=== PATIENT | male | born 1965 | race Caucasian/White ===

== ENCOUNTER 2023-06-07 09:59 | Day surgery (SDC) | payer MEDICARE, OTHER, SELFPAY ==
[2023-06-02 11:23] VITALS: BMI 23.0
--- NOTE | 2023-06-02 12:17 | PTCARENOTE ---
Ashlyn at 's office was notified of K+ 5.5 collected today.
--- NOTE | 2023-06-05 15:30 | PTCARENOTE ---
Dr Peterson made aware of K 5.5. Repeat potassium at bedside ordered.
[2023-06-07] VITALS (9 sets, daily range): BP systolic 118–134; BP diastolic 74–93
[2023-06-07 11:55] LABS: Potassium 4.6 mmol/L (3.5-5.1)
--- NOTE | 2023-06-07 13:01 | W.SUR.POST ---
Surgical Immediate Post Op
Note
Pre Op Diagnosis: ESRD
Post Op Diagnosis: ESRD
Procedure Performed: RUE fistulagram, balloon angioplasty outflow vein
Primary Surgeon: Jack
Anesthesia: local and sedation
Estimated Blood Loss: <2cc
Fluids: See anesthesia flow sheet
Drains/Shunts: none
Specimens/Cultures: none
Doppler/Duplex/Angio (Y/N): Y
Complications: none
Operative Findings: Outflow vein stenosis/webs
--- NOTE | 2023-06-07 17:06 | OR.RPT ---
Operative Report
Operative Report
PROCEDURE DATE: 06/07/2023
Preoperative diagnosis:
1. Chronic kidney disease, status post kidney transplant.
2. Status post right upper extremity AV fistula creation with enlarging aneurysmal fistula with aching discomfort.
Postoperative diagnosis: Same
Procedure:
1. Right upper extremity fistulogram and central venogram.
2. Balloon angioplasty of possible central venous stenosis with 10 mm angioplasty balloon.
3. Balloon angioplasty of immediate outflow vein web/stenosis with 8 mm angioplasty balloon.
Surgeon: Jack
Keymodule Assembly Supervisor: None
Complications: None
Anesthesia: Local, sedation
Fluoroscopy:
2.3 min
20 mGy
5.96 Gy.cm2
Indications for procedure:
Patient with right upper extremity arteriovenous fistula that had been created when he was having worsening kidney function. Subsequently he underwent successful renal transplantation. He had aching/aneurysmal degeneration of the fistula. He is
very active individual and it was unclear whether this was due to [id number] or this could have been a central venous stenosis. He did have some dilated upper extremity veins as well suggesting possible central venous stenosis.
Risk/benefits/alternatives of fistulogram were also discussed. We discussed performing with minimizing of contrast. Patient understood all and wished to proceed.
Description of procedure:
Patient was identified, brought to the operating room. Placed on the table in the supine position. After the adequate administration of anesthesia, the patient was prepped and draped in the standard surgical fashion. A standard preoperative
timeout was undertaken and everybody was in agreement with the plan.
The outflow vein of the fistula was punctured at the antecubital fossa using a micropuncture kit under direct duplex ultrasound guidance. A 6 Polish sheath was then advanced over a 0.035 inch wire. Fistulogram was obtained that demonstrated very
tortuous immediate outflow beyond the aneurysmal puncture site with what appeared to be a web like stenosis. Slightly more proximal to here there was another area that suggested a web possibly. Beyond here the fistula appeared patent. Central
venogram demonstrated patent central veins with some collateralization though. I could not identify definitive stenosis initially. I used a glide catheter over a wire and then injected through the glide catheter into the central veins and then
noted that at the cephalic arch there was a moderate stenosis, not severe, and at the subclavian vein juncture with the internal jugular vein also there was a moderate stenosis. I therefore then gained central venous access into the SVC with a
wire. I then balloon angioplastied the immediate outflow stenosis with an 8 mm balloon and then the central stenosis with a 10 mm balloon. Completion angiogram demonstrated good flow through. No definitive residual stenosis, though I am not clear
that the webbing completely resolved. I felt placing stents was not ideal at this point. At this point therefore I was satisfied. My wires and catheters were withdrawn. A 4-0 Monocryl pursestring stitch was placed around the sheath entry site
and tied down as the sheath was withdrawn. Manual pressure was also applied and hemostasis was achieved.
The patient tolerated procedure well.
== END 2023-06-07 14:45 | disposition home or self-care (01) ==
LOC: CATH 09:59
PROVIDERS: Anesthesiology; ATTENDING PHYSICIAN Surgery Vascular Surgery; FAMILY PHYSICIAN Family Medicine
DX: T82.858A Stenosis of other vascular prosthetic devices, implants and grafts, initial encounter (principal); Y83.2 Surgical operation with anastomosis, bypass or graft as the cause of abnormal reaction of the patient, or of later complication, without mention of misadventure at the time of the procedure; I12.0 Hypertensive chronic kidney disease with stage 5 chronic kidney disease or end stage renal disease; N18.6 End stage renal disease; Z99.2 Dependence on renal dialysis; Z94.0 Kidney transplant status; Z87.891 Personal history of nicotine dependence; Z79.52 Long term (current) use of systemic steroids
CPT/HCPCS: 36902; 36907; C1725; 76937; 84132; C1769; C1894; Q9967

== ENCOUNTER → 2023-09-13 06:34 | Outpatient (REF) | payer MEDICARE, OTHER, SELFPAY | LOC: MRI 3T 06:34 | PROVIDERS: ATTENDING PHYSICIAN Pain Medicine Interventional Pain Medicine; FAMILY PHYSICIAN Family Medicine | DX: M54.16 Radiculopathy, lumbar region (principal) | CPT/HCPCS: 72148 ==

== ENCOUNTER → 2024-02-09 12:15 | Outpatient (REF) | payer MEDICARE, OTHER, SELFPAY | LOC: RAD 12:15 | PROVIDERS: ATTENDING PHYSICIAN Student in an Organized Health Care Education/Training Program | DX: R05.9 Cough, unspecified (principal) | CPT/HCPCS: 71046 ==

== ENCOUNTER 2024-04-27 13:43 | Inpatient (IN) | payer MEDICARE, OTHER, SELFPAY ==
[2024-04-27] VITALS (9 sets, daily range): BP systolic 108–131; BP diastolic 64–83; BMI 17.4; BMI 22.3
--- NOTE | 2024-04-27 10:08 | ED.GENMED ---
History of Present Illness
<Sparkle Juarez PA-C - Last Filed: 04/27/24 14:27>
General
Chief Complaint: Cough
Source: patient
Exam Limitations: none
Time Seen by Provider: 04/27/24 09:48
Nursing documentation reviewed up to this point in time: agreed with
History of Present Illness
History of Present Illness:
59-year-old male with a history of failed kidney transplant first in 2015, second [address] [facility], chronic kidney disease with a baseline creatinine of around 4, followed by nephrology Dr. Hamilton here at [facility]
Presents for 1 week of URI symptoms including fevers, chills, body aches, cough that is productive with some yellowish mucus, diarrhea, dehydration, global fatigue. Patient says his symptoms started about 9 days ago but on he tested positive
for COVID-19. He called his family physician who called him and paxlovid. Patient took 5 days of the paxlovid but never felt any improvement. He did develop diarrhea while on the paxlovid which seemed to get a little bit better yesterday but then
came back again. It is variable in terms of episodes. But he feels like he is not getting enough fluids and and feels very weak. He has not had any vomiting and is able to tolerate liquids. Patient last had a temperature of 102 this morning at 7
AM and took Tylenol. He feels mildly short of breath which is worse with exertion.
Patient is immunocompromised on immune suppressants for his kidney transplant. He still has an AV fistula in his right upper extremity but is not being dialyzed.
He otherwise has no other chronic medical problems, he does take blood pressure medication
pt wa sent in by his PCP this am after he spoke with him on the phone
Past History
<Sparkle Juarez PA-C - Last Filed: 04/27/24 14:27>
Past History
ED Past Medical History: HTN and Renal failure
ED Past Surgical History: Other (Renal transplant [facility] 2014)
Social History
Tobacco: Non-smoker
Alcohol: None
Drug: None
Personal:
Living: with family
Employment: Employed
Family History
Family History: Other (Noncontributory)
Review of Systems
<Sparkle Juarez PA-C - Last Filed: 04/27/24 14:27>
Review of Systems
Allergies reviewed?: Yes
All Other Systems: Not applicable
Phy Exam
<Sparkle Juarez PA-C - Last Filed: 04/27/24 14:27>
Physical Exam
Physical Exam:
GENERAL: Alert , in no apparent distress generally ill, nontoxic but wiped out
EYE: pupils equal and reactive
NECK: Supple
ENT: b/l TM s clear, pharynx mild erythematous but no tonsillar hypertrophy or exudates
CARDIAC: Regular rate and rhythm, no edema, right upper extremity AV fistula with a palpable thrill
LUNGS: Occasional cough, some crackles in his right lung, mild rhonchi bases bilaterally, no wheezes, no respiratory distress
ABDOMEN: Soft, without focal tenderness, no r/g, no cvat, normal bowel sounds
NEUROLOGICAL: Alert and oriented, no focal neuro deficits
SKIN: Warm and dry, skin intact.
MUSCULOSKELETAL: No edema, well perfused.
PSYCH: Normal and appropriate interaction.
Course
<Sparkle Juarez PA-C - Last Filed: 04/27/24 14:27>
Orders/Labs/Results
Orders:
Orders
04/27/24 09:32
Chest [CR Chest - 2 Views ] Urgent
Comment:
Reason For Exam: cough
04/27/24 09:48
Electrocardiogram (*1) Urgent
Reason for Study: Shortness of Breath
Cardiac Monitoring- Treatment ONCE
04/27/24 09:49
EKG- Treatment ONCE
04/27/24 Lunch
Regular
At Your Request: Full Participation
04/27/24 10:08
0.9% Sodium Chloride 1000 ml [Nss] 1,000 ml IV BOLUS
04/27/24 10:52
Complete Blood Count/With Diff Urgent
Comprehensive Metabolic Panel Urgent
Lactic Acid Urgent
Magnesium Urgent
Procalcitonin Urgent
PCT Algorithmm Indication: Respiratory
Blood Culture Q30M
FILI Source: Blood/Venous
Specimen Description:
04/27/24 10:53
COVID-19 Antigen Urgent
Source: Nasal Swab
Blood Culture Q30M
FILI Source: Blood/Venous
Specimen Description:
Influenza A+B Rapid Molecular Urgent
FILI Source: Nasal Swab
Specimen Description:
04/27/24 12:05
Azithromycin 500 mg/250 ml [Zithromax Infusion] 500 mg in 250 ml IV NOW
CefTRIAXone [Rocephin] 2,000 mg IV NOW STA
04/27/24 12:29
Sterile Water [Sterile Water For Injection] 10 ml .ROUTE .STK-MED ONE
04/27/24 12:43
Sps Sodium Polystyrene Sulfon [Kayexalate Suspension] 15 grams PO NOW STA
04/27/24 12:48
INFECTIOUS DISEASE CONSULT Routine
Consulting Provider: Roma Diaz
Was physician already notified: Yes
Reason for consult: B/L PNA
04/27/24 13:02
Admit/Transfer Patient As Directed
Co-Sign Provider:
Level of Care: Inpatient admission
Assign to:: Medical/Surgical
Physician / Group: Hospitalist
Diagnosis: Bilateral Pneumonia
Reason for Hospitalization: as above
Expected length of stay greater than two midnights?: Yes
ELOS- Estimated Length of Stay in days: 3
I certify the patient meets the requirements for IP care: Yes
04/27/24 13:03
PRN Pain Medication Management As Directed
May give lesser potent ordered pain med per pt: Yes
preference::
Protocol:: Medication orders for pain may be administered in a
manner that supports deferring to patient preference
when the pt is:
- Requesting an ordered lesser potent pain medication.
Least to most potent pain medications are defined
as: acetaminophen < NSAID < tramadol < opioids
(morphine, oxycodone, hydromorphone).
- Requesting a lesser dose of the same medication IF
ORDERED.
- Requesting a less intrusive route of administration
if both routes are prescribed by the provider (PO <
IV).
04/27/24 13:04
Code Status As Directed
Resuscitation Status: Full Code
04/27/24 13:26
Guaifenesin/Codeine Solution [Robitussin AC] 10 ml PO NOW STA
Abnormal Lab Results
04/27/24 04/27/24
10:52 10:53
WBC 2.1 L* 10^3/uL
(4.8-10.8)
MPV 10.5 H fL
(7.4-10.4)
Absolute Lymphs (auto) 0.1 L 10^3/uL
(1.2-3.4)
Immature Gran % 1.0 H %
(0-0.5)
Neutrophils % 83.8 H %
(42.2-75.2)
Lymphocytes % 3.8 L %
(20.5-51.1)
Monocytes % 11.4 H %
(1.7-9.3)
Sodium 130 L mmol/L
(135-145)
Potassium 5.2 H mmol/L
(3.5-5.1)
BUN 27 H mg/dl
(9-20)
Creatinine 1.7 H mg/dL
(0.7-1.3)
Glucose 104 H mg/dl
(70-99)
Total Protein 5.9 L g/dl
(6.3-8.2)
Albumin 3.3 L g/dl
(3.5-5.0)
SARS-CoV-2 Antigen Positive A
(Negative)
04/27/24 10:52
04/27/24 10:52
Vital Signs
Initial and Last Documented VS:
Initial Vital Signs
Temp Pulse Resp BP Pulse Ox
37.2 C 78 20 108/67 96
04/27/24 09:16 04/27/24 09:16 04/27/24 09:16 04/27/24 09:16 04/27/24 09:16
Last Documented Vital Signs
Temp Pulse Resp BP Pulse Ox
37.7 C 76 20 125/79 96
04/27/24 12:30 04/27/24 13:30 04/27/24 13:30 04/27/24 13:00 04/27/24 13:30
<Pernell Moody MD - Last Filed: 04/27/24 12:23>
Orders/Labs/Results
Orders:
Orders
04/27/24 09:32
Chest [CR Chest - 2 Views ] Urgent
Comment:
Reason For Exam: cough
04/27/24 09:48
Electrocardiogram (*1) Urgent
Reason for Study: Shortness of Breath
Cardiac Monitoring- Treatment ONCE
04/27/24 09:49
EKG- Treatment ONCE
04/27/24 Lunch
Regular
At Your Request: Full Participation
04/27/24 10:08
0.9% Sodium Chloride 1000 ml [Nss] 1,000 ml IV BOLUS
04/27/24 10:52
Complete Blood Count/With Diff Urgent
Comprehensive Metabolic Panel Urgent
Lactic Acid Urgent
Magnesium Urgent
Procalcitonin Urgent
PCT Algorithmm Indication: Respiratory
Blood Culture Q30M
FILI Source: Blood/Venous
Specimen Description:
04/27/24 10:53
COVID-19 Antigen Urgent
Source: Nasal Swab
Blood Culture Q30M
FILI Source: Blood/Venous
Specimen Description:
Influenza A+B Rapid Molecular Urgent
FILI Source: Nasal Swab
Specimen Description:
04/27/24 12:05
Azithromycin 500 mg/250 ml [Zithromax Infusion] 500 mg in 250 ml IV NOW
CefTRIAXone [Rocephin] 2,000 mg IV NOW STA
04/27/24 12:29
Sterile Water [Sterile Water For Injection] 10 ml .ROUTE .STK-MED ONE
04/27/24 12:43
Sps Sodium Polystyrene Sulfon [Kayexalate Suspension] 15 grams PO NOW STA
04/27/24 12:48
INFECTIOUS DISEASE CONSULT Routine
Consulting Provider: Roma Diaz
Was physician already notified: Yes
Reason for consult: B/L PNA
04/27/24 13:02
Admit/Transfer Patient As Directed
Co-Sign Provider:
Level of Care: Inpatient admission
Assign to:: Medical/Surgical
Physician / Group: Hospitalist
Diagnosis: Bilateral Pneumonia
Reason for Hospitalization: as above
Expected length of stay greater than two midnights?: Yes
ELOS- Estimated Length of Stay in days: 3
I certify the patient meets the requirements for IP care: Yes
04/27/24 13:03
PRN Pain Medication Management As Directed
May give lesser potent ordered pain med per pt: Yes
preference::
Protocol:: Medication orders for pain may be administered in a
manner that supports deferring to patient preference
when the pt is:
- Requesting an ordered lesser potent pain medication.
Least to most potent pain medications are defined
as: acetaminophen < NSAID < tramadol < opioids
(morphine, oxycodone, hydromorphone).
- Requesting a lesser dose of the same medication IF
ORDERED.
- Requesting a less intrusive route of administration
if both routes are prescribed by the provider (PO <
IV).
04/27/24 13:04
Code Status As Directed
Resuscitation Status: Full Code
04/27/24 13:26
Guaifenesin/Codeine Solution [Robitussin AC] 10 ml PO NOW STA
Abnormal Lab Results
04/27/24 04/27/24
10:52 10:53
WBC 2.1 L* 10^3/uL
(4.8-10.8)
MPV 10.5 H fL
(7.4-10.4)
Absolute Lymphs (auto) 0.1 L 10^3/uL
(1.2-3.4)
Immature Gran % 1.0 H %
(0-0.5)
Neutrophils % 83.8 H %
(42.2-75.2)
Lymphocytes % 3.8 L %
(20.5-51.1)
Monocytes % 11.4 H %
(1.7-9.3)
Sodium 130 L mmol/L
(135-145)
Potassium 5.2 H mmol/L
(3.5-5.1)
BUN 27 H mg/dl
(9-20)
Creatinine 1.7 H mg/dL
(0.7-1.3)
Glucose 104 H mg/dl
(70-99)
Total Protein 5.9 L g/dl
(6.3-8.2)
Albumin 3.3 L g/dl
(3.5-5.0)
SARS-CoV-2 Antigen Positive A
(Negative)
04/27/24 10:52
04/27/24 10:52
Vital Signs
Initial and Last Documented VS:
Initial Vital Signs
Temp Pulse Resp BP Pulse Ox
37.2 C 78 20 108/67 96
04/27/24 09:16 04/27/24 09:16 04/27/24 09:16 04/27/24 09:16 04/27/24 09:16
Last Documented Vital Signs
Temp Pulse Resp BP Pulse Ox
37.7 C 76 20 125/79 96
04/27/24 12:30 04/27/24 13:30 04/27/24 13:30 04/27/24 13:00 04/27/24 13:30
<Sparkle Juarez PA-C - Last Filed: 04/27/24 14:27>
MDM/Problems Addressed
Differential Diagnosis Includes:
Pneumonia, bacteremia, dehydration, DANIEL
MDM/Problems Addressed:
room 59 cristian palomino 59 y/o M htn, kid txp x 2 (2021 [facility]) followed by abel
covid + on 04/20, completed paxlovid; weak, fever, rigors, cough, winded, diarrhea
soft bp, temp 100
cbc pending for some reason
lactate normal
cr stable
cxr b/l pna
procal neg but could be in renal patient
s
given risk factors, will cover with community acquired abx
blood cx sent
abx
<Sparkle Juarez PA-C - Last Filed: 04/27/24 14:27>
*Critical Care Note
Total Time (30-74mins, 75-104mins- exclusive of procedures): Not Applicable
ED Attending Note
<Sparkle Juarez PA-C - Last Filed: 04/27/24 14:27>
-
Portions of this chart may have been created with voice recognition software.� Occasional wrong word or��sound alike� substitutions may have occurred due to the inherent limitations of voice recognition software.
<Pernell Moody MD - Last Filed: 04/27/24 12:23>
ED Attending Note
Patient seen and examined by attending physician: Yes
ED Attending Note:
I have seen and evaluated the patient with a [id number] encounter. I have spoken to the advance practicer provider and involved in the medical history, the physical exam, medical decision making.
Evaluation and management service: agree unless noted differently below.
Results interpretation: agree unless noted differently below.
Focused HPI: 59-year-old male with history as documented notable for ESRD status post renal transplant who presents to the ER for worsening cough in the setting of COVID. He reports he started feeling unwell about a week ago and tested positive for
COVID as an outpatient. He did take Paxlovid but symptoms did not improve. He reports that he has had shortness of breath, cough, myalgias, fever and chills for a week and is not getting any better which prompted ER visit. Denies any chest pain.
Denies any vomiting. He has had some loose stools. Denies other complaints
Physical exam: Awake alert, appears fatigued but not in acute distress. Vital signs are normal here. He has rales at the lung bases bilaterally and frequent hacking cough.
Medical Decision Makin-year-old male with notable history of renal transplant presents with worsening symptoms in the setting of known COVID infection. Labs show essentially stable creatinine, marginal hyperkalemia. COVID swab confirmed
positive. Chest x-ray shows bilateral pneumonia. Sent off blood cultures. Will cover with antibiotics given compromised immune system. Admit for continued treatment.
Discharge Plan
Departure
Patient Disposition: Admit
Date of Disposition: 04/27/24
Time of Disposition: 12:18
Admit to: Med/Surg
Presentation/result/management discussed w/ accepting MD/DO: Hospitalist
Condition: Fair
Covid-19: Confirmed COVID-19
Discharge Problem:
COVID-19, Pneumonia, Immunosuppression
Interventions
Interventions:
*Risk Screen - Suicide Last Done: 04/27/24 09:20
*General Assessment Last Done: 04/27/24 09:20
*Neglect/Abuse Screening Last Done: 04/27/24 09:20
ED- Fall Risk Assessment Last Done: 04/27/24 09:21
*ED COVID-19 Vaccine History Last Done: 04/27/24 09:19
ED- Pulmonary Assessment Last Done: 04/27/24 10:49
[2024-04-27] MEDS: NSS 1000 IV ×2 (10:48→19:13)
[2024-04-27 11:19] LABS: COVID-19 Antigen Positive (Negative)
[2024-04-27 11:22] LABS: ALT (SGPT) 33 U/L (0-50); AST (SGOT) 43 U/L (17-59); Albumin 3.3 g/dl (3.5-5.0); Alkaline Phosphatase 103 U/L (38-126); Blood Urea Nitrogen 27 mg/dl (9-20); Calcium 8.7 mg/dl (8.4-10.2); Carbon Dioxide 24 mmol/L (22-30); Chloride 100 mmol/L (98-107); Estimated Creatinine Clearance 41 ml/min; Glucose 104 mg/dl (70-99); Lactic Acid 0.8 mmol/L (0.7-2.0); Magnesium 1.6 mg/dl (1.6-2.3); Potassium 5.2 mmol/L (3.5-5.1); Sodium 130 mmol/L (135-145); Total Bilirubin 0.6 mg/dl (0.2-1.3); Total Protein 5.9 g/dl (6.3-8.2); eGFR 45.58
[2024-04-27 11:40] LABS: Procalcitonin 0.06 ng/ml (0.0-0.25)
[2024-04-27] MEDS: ROCEPHIN 2000 MG IV (12:34)
--- NOTE | 2024-04-27 12:34 | W.PN.UPDATE ---
Update Note
Progress Note Update
I personally performed a history and physical exam of the patient and discussed management with the resident. I reviewed the resident's note and agree with the documented findings and plan of care HPI/CC.
5-year-old male presents with 1 week of upper respiratory symptoms. He was diagnosed with COVID and treated with 5 days of Paxil bid. He has not improved.
Gen: NAD, AAOx3.
Eyes: EOMI, PERRLA, no scleral icterus.
Neck: supple.
CV: RRR, +S1/S2, no m/r/g.
Resp: CTAB anteriorly, no rales, wheezes, or rhonchi (not exam obscured by excessive coughing).
Skin: No rashes.
Neuro: CN 2-12 intact, non-focal.
Psych: Normal mood and affect.
Lab Results
04/27/24 04/27/24 04/27/24
09:48 10:52 10:53
WBC 2.1 L*
RBC 4.87
Hgb 13.5
Hct 40.5
MCV 83.2
MCH 27.7
MCHC 33.3
RDW 13.4
Plt Count 156
MPV 10.5 H
Abs Immat Gran (auto) 0.0
Absolute Neuts (auto) 1.8
Absolute Lymphs (auto) 0.1 L
Absolute Monos (auto) 0.2
Absolute Eos (auto) 0.0
Absolute Basos (auto) 0.0
Immature Gran % 1.0 H
Neutrophils % 83.8 H
Lymphocytes % 3.8 L
Monocytes % 11.4 H
Eosinophils % 0.0
Basophils % 0.0
Nucleated RBC % 0
Sodium 130 L
Potassium 5.2 H
Chloride 100
Carbon Dioxide 24
BUN 27 H
Creatinine 1.7 H
Estimated Creat Clear 41
eGFR 45.58
Glucose 104 H
Lactic Acid 0.8
Calcium 8.7
Magnesium 1.6
Total Bilirubin 0.6
AST 43
ALT 33
Alkaline Phosphatase 103
Troponin I Cancelled
Total Protein 5.9 L
Albumin 3.3 L
Procalcitonin 0.06
SARS-CoV-2 Antigen Positive A
04/27/24 10:53 Nasal Swab Influenza Types A & B (DONALD) - Final
Negative for Influenza A & B, NAAT
Negative results must be combined with clinical observations
and patient history.
Nucleic Acid Amplification test (NAAT)performed on the
[employer] NOW platform.
CXR: Patchy bilateral parenchymal opacities as described, highly suggestive of bilateral pneumonia.
Sepsis due to acute B/L PNA:
-a/e/b tachypnea, leukopenia, source PNA
-currently saturating well on RA
-Flu NEG, COVID POS (was COVID POS 04/20/24, completed 5 days Paxlovid). As per Dr. Diaz, no Molnupiravir at this time.
-Immunocompromised patient, history of renal Tx x 2, CKD3a
-cont Cellcept/prednisone/Prograf
-Azithro/Rocephin (reports not hospitalized over the last few months, MDR less likely)
-c/s ID as pt immunocompromised
-follow BCxs
-IVFs
-Robitussin with codeine for persistent cough
Essential HTN:
-cont Labetalol/Cardura with holding parameters
Hyperkalemia:
-15g Kayexalate x 1
Hyponatremia:
-trend with IVFs
[2024-04-27] MEDS: ZITHROMAX INFUSION 250 IV (12:37)
[2024-04-27 12:40] LABS: % Lymphocytes 3.8 % (20.5-51.1); % Monocytes 11.4 % (1.7-9.3); % Neutrophils 83.8 % (42.2-75.2); Absolute Lymphocytes 0.1 10^3/uL (1.2-3.4); Absolute Monocytes 0.2 10^3/uL (0.1-0.6); Absolute Neutrophils 1.8 10^3/uL (1.4-6.5); Hematocrit 40.5 % (39.0-52.0); Hemoglobin 13.5 g/dL (13.0-18.0); Mean Corp Hgb Conc. 33.3 g/dL (33.0-37.0); Mean Corpuscular Hgb 27.7 pg (27.0-31.0); Mean Corpuscular Volume 83.2 fL (80.0-94.0); Mean Platelet Volume 10.5 fL (7.4-10.4); Nucleated Red Blood Cells % 0 % (-); Platelet Count 156 10^3/uL (130-400); Red Blood Cell Count 4.87 10^6/uL (4.70-6.10); Red Cell Dist. Width 13.4 % (11.5-14.5); White Blood Cell Count 2.1 10^3/uL (4.8-10.8)
--- NOTE | 2024-04-27 13:02 | HPS.HSE ---
Family Physician
-
Family Physician: Sanjay Lindsay
Chief Complaint
-
Cough
History of Present Illness
This is a 59-year-old male with past medical history of ESRD s/p renal transplant in 2015, and in May 2019 at [facility] on tacrolimus, prednisone, Hx of hypertension, who presented to the ER complaining of ongoing URI symptoms. Patient reports
he tested positive for COVID-19 on 04/20, was prescribed Paxlovid and took medication for total 5 days, but symptoms did not resolve. Patient reports experiencing generalized weakness, fatigue and unable to tolerate diet. He reports his cough
worsened, now productive with yellow sputum, as well as dehydration and diarrhea prompting him to come to the emergency department for evaluation.
On presentation to ER blood pressure 108/67, pulse 78, respiratory 20, O2 sats 96% on room air. CBC shows WBC 2.1, Hgb 13.5. Electrolytes with sodium 130, potassium 5.2, BUN 27, creatinine 1.7. Evaluation with a chest x-ray showed Patchy
bilateral parenchymal opacities as described, highly suggestive of bilateral pneumonia.
Medical History
Past Medical History
Past Medical History: Reports Other (ESRD, hemodialysis, renal transplant 2015, renal transplant 2021, hypertension, hyperlipidemia, right inguinal hernia repair, restless leg syndrome)
Past Surgical History: Reports Other (Hemorrhoidectomy, renal transplant ())
Social History
Tobacco: Non-smoker
Alcohol: None
Drug: None
Family History
Family History: Not pertinent
Allergies / Home Medications
Allergies reflects when Allergies were last updated in [facility].
Home Medications with original date entered in [facility]
Allergy/Medication List:
Allergies
Allergy/AdvReac Type Severity Reaction Status Date / Time
No Known Allergies Allergy Verified 04/27/24 09:20
Home Medications
labetalol 200 mg tablet 100 mg PO BID Blood pressure 03/14/19
doxazosin 2 mg tablet (Cardura) 2 mg PO DAILY 10/04/22
prednisone 5 mg tablet 5 mg PO DAILY 12/21/21
mycophenolate sodium 180 mg tablet,delayed release 540 mg PO BID 05/31/23
tacrolimus 1 mg capsule, immediate-release 1 mg PO Q12H 06/07/23
acetaminophen 325 mg tablet (Tylenol) 650 mg PO Q6HPRN PRN FEVER/CHILLS/MILD PAIN 04/27/24
tacrolimus 0.5 mg capsule, immediate-release (Prograf) 0.5 mg PO DAILY 04/27/24
Review of Systems
-
A 12 point ROS was completed and negative except as noted: Yes
Constitutional: Reports See HPI
Respiratory: Reports See HPI
Cardiac: Reports See HPI
Abdomen/GI: Reports See HPI
Physical Exam
Vital Signs
Vital Signs
Temp Pulse Resp BP Pulse Ox
99 F 79 18 109/67 96
04/27/24 09:16 04/27/24 10:45 04/27/24 10:45 04/27/24 10:34 04/27/24 10:49
Physical Exam
General: No Apparent Distress
HEENT: NormoCephalic and Anicteric
Respiratory: Wheezes and Rhonchi
Cardiac: S1/S2 and Regular Rhythm; No Murmur
GI: Soft, Non Tender, Non Distended and Normal Bowel Sounds
Musculoskeletal: No Edema
Neuro: Awake, Alert, Oriented and AO x 3
Psych: Calm
Laboratory Results
-
04/27/24 10:52
04/27/24 10:52
Laboratory Results
Lactic Acid 0.8 mmol/L (0.7-2.0) 04/27/24 10:52
Total Bilirubin 0.6 mg/dl (0.2-1.3) 04/27/24 10:52
AST 43 U/L (17-59) 04/27/24 10:52
ALT 33 U/L (0-50) 04/27/24 10:52
Alkaline Phosphatase 103 U/L (38-126) 04/27/24 10:52
Troponin I Cancelled 04/27/24 09:48
Impression/Plan
-
Assessment/plan
#Sepsis POA secondary to bilateral pneumonia and COVID-19
-CXR Patchy bilateral parenchymal opacities as described, highly suggestive of bilateral pneumonia.
-Initiated on azithromycin and Rocephin
-patient immunocompromised, infectious disease consulted
-Blood cultures x 2 ordered, pending
-Flu negative
-COVID positive (although was positive 04/20/2024, and completed a 5-day course of Paxlovid)
-Robitussin AC for ongoing cough
#ESRD s/p renal transplant 2015 and 2021
-Creatinine 1.7
-Has not required dialysis
-Continue home immunosuppressants, tacrolimus/Prednisone/mycophenolate sodium
#Leukopenia
-Likely related to immunosuppressants
-Monitor CBC
#Hypovolemic hyponatremia
-IV fluids
-Monitor BMP
#Hyperkalemia
-No EKG changes
-Kayexalate
#Essential hypertension
-Continue labetalol/doxazosin
CODE STATUS full code
DVT prophylaxis heparin SQ
[2024-04-27] MEDS: ROBITUSSIN AC 10 ML PO (13:38)
[2024-04-27] MEDS: KAYEXALATE SUSPENSION 15 GRAMS PO (13:38)
--- NOTE | 2024-04-27 14:26 | CON.ID ---
Consultation
-
Date/Time Consultation Requested: March 27, 2024 1248
Date/Time Consultation Performed: March 27, 2024 1430
Requesting Provider: Dr. Reginald Valverde
Performing Provider: Dr. Roma Diaz
Reason for Consultation: PNA, immunocompromised
Chief Complaint / Past History
Chief Complaint
Cough, SOB
History of Present Illness
59-year-old male with history of renal transplant x 2 on prednisone, tacrolimus, mycophenolate, CKD who presented to the ER today due to persistent cough. His symptoms started April 19 with fever, chills, headache, rhinorrhea, cough, shortness of
breath. His was also ill at the same time. On April 20 he tested positive for COVID. His PCP prescribed Paxlovid which he completed 5-day course. However symptoms persisted without any improvement. Positive fever up to 102 at home. His
PCP recommended he come to the ER. Chest x-ray shows bilateral parenchymal opacities. He is currently on ceftriaxone and azithromycin. Repeat COVID today remains positive. He reports he has not received the COVID-vaccine this season. Recent
travel to [place] by plane. He reports cough productive of yellow sputum. No nausea or vomiting. Positive diarrhea while on the Paxlovid. No urine symptoms.
Past History
Additional Past Medical History:
HTN
s/p renal transplant x 2 (2021)
CKD 2
Restless leg syndrome
Hernia repair
RUE fistula
hemorrhoidectomy
Allergy History:
No Known Allergies Allergy (Verified 04/27/24 09:20)
Medications Reviewed: Yes
Current Antibiotics:
Ceftriaxone
Azithromycin
Social History
Tobacco: Former Smoker
Alcohol: None
Drug: None
Personal:
Living: With Family
Family History
Family History: Not Pertinent
Review of Systems
Review of Systems
General: Fever, Chills and Change in Appetite
Cardiovascular: Negative Chest Pain or Edema
Respiratory: Dyspnea, Cough and Sputum Production
Gasteroenterology: Diarrhea; Negative Nausea or Vomiting
Genital / Urological: Negative Dysuria
Endocrine: Weakness
Musculoskeletal: Negative Arthralgias
Skin / Hair / Nails: Negative Rash
Neurological: Negative Dizziness
All systems: All other systems were reviewed and were negative
Vital Signs
Temp Pulse Resp BP Pulse Ox
99.9 F 76 20 125/79 96
04/27/24 12:30 04/27/24 13:30 04/27/24 13:30 04/27/24 13:00 04/27/24 13:30
Physical Exam
Physical Exam
Constitutional: Acutely Ill and Cachetic
Head: Other (No frontal or max or sinus tenderness.)
Eyes: No Conjunctival Hemorrhage and Sclera Anicteric
Cardiovascular: Regular Rate and S1/S2
Pulmonary: Rales (bilateral bases)
Gastrointestinal: Soft, Non Tender, Non Distended and Normal Bowel Sounds
Genito-Urinary: Other (Transplant kidney nontender); Negative Georges
Extremities: Negative Edema
Musculoskeletal: Negative Spinal Tenderness
Neurological: AO x 3
Lab / Diagnostic Study Results
04/27/24 10:52
04/27/24 10:52
Abs Immat Gran (auto) 0.0 10^3/uL (0-0.05) 04/27/24 10:52
Absolute Neuts (auto) 1.8 10^3/uL (1.4-6.5) 04/27/24 10:52
Absolute Lymphs (auto) 0.1 10^3/uL (1.2-3.4) L 04/27/24 10:52
Absolute Monos (auto) 0.2 10^3/uL (0.1-0.6) 04/27/24 10:52
Absolute Basos (auto) 0.0 10^3/uL (0-0.2) 04/27/24 10:52
Immature Gran % 1.0 % (0-0.5) H 04/27/24 10:52
Neutrophils % 83.8 % (42.2-75.2) H 04/27/24 10:52
Lymphocytes % 3.8 % (20.5-51.1) L 04/27/24 10:52
Monocytes % 11.4 % (1.7-9.3) H 04/27/24 10:52
Eosinophils % 0.0 % (0-6) 04/27/24 10:52
Basophils % 0.0 % (0-2) 04/27/24 10:52
Lactic Acid 0.8 mmol/L (0.7-2.0) 04/27/24 10:52
Procalcitonin 0.06 ng/ml (0.0-0.25) 04/27/24 10:52
Microbiology Results
Micro:
04/27/24 10:53 Influenza Types A & B (DONALD) - Final
Nasal Swab Negative for Influenza A & B, NAAT
Negative results must be combined with clinical observations
and patient history.
Nucleic Acid Amplification test (NAAT)performed on the
[email or web address] platform.
04/27/24 10:52 Blood Culture - Pending
Blood/Venous
04/27/24 10:53 Blood Culture - Pending
Blood/Venous
04/27/24 CXR: Patchy bilateral parenchymal opacities as described, highly suggestive of bilateral pneumonia.
Assessment / Plan
# Bilateral pneumonia
-?legionella. hyponatremic, recent diarrhea
- Check urine legionella and strep pneumo ag
- Check sputum cx
- Agree with ceftriaxone and azithromycin for now
# Recent COVID infection
-Unvaccinated status
- 04/20/24 COVID Ag+
- s/p 5d Paxlovid
- 04/27 COVID Ag remains positive. Immunocompromised host sheds COVID longer.
-COVID isolation.
# Immunocompromised host
-Renal transplant on mycophenolate, tacrolimus, prednisone 5 mg/d
[2024-04-27] MEDS: TYLENOL 650 MG PO ×2 (16:39→23:12)
--- NOTE | 2024-04-27 17:39 | PTCARENOTE ---
pt came from ED via stretcher, AAX3, able to walk to his bed, vitals obtained and charted, call stern within reach, offers no complaints at this time. Plan of Care ongoing.
[2024-04-27] MEDS: PROGRAF 1 MG PO (20:44)
[2024-04-27] MEDS: HEPARIN 5000 UNITS SC (20:44)
[2024-04-27] MEDS: TRANDATE 100 MG PO (20:44)
[2024-04-27] MEDS: MYFORTIC DELAYED REL. 540 MG PO (20:45)
[2024-04-27] MEDS: MELATONIN 5 MG PO (23:41)
[2024-04-28] MEDS: NSS 1000 IV (04:30)
[2024-04-28] MEDS: MYFORTIC DELAYED REL. 540 MG PO ×2 (06:07→17:34)
[2024-04-28] MEDS: PROGRAF 1 MG PO ×2 (06:07→17:34)
[2024-04-28] MEDS: PROGRAF 0.5 MG PO (06:09)
[2024-04-28] MEDS: ROBITUSSIN AC 5 ML PO ×3 (06:12→19:38)
[2024-04-28 06:23] LABS: Blood Urea Nitrogen 22 mg/dl (9-20); Calcium 8.1 mg/dl (8.4-10.2); Carbon Dioxide 18 mmol/L (22-30); Chloride 102 mmol/L (98-107); Estimated Creatinine Clearance 64 ml/min; Glucose 96 mg/dl (70-99); Potassium 4.5 mmol/L (3.5-5.1); Procalcitonin 0.11 ng/ml (0.0-0.25); Sodium 130 mmol/L (135-145); eGFR 57.54
[2024-04-28 06:26] LABS: Hematocrit 37.2 % (39.0-52.0); Hemoglobin 12.7 g/dL (13.0-18.0); Mean Corp Hgb Conc. 34.1 g/dL (33.0-37.0); Mean Corpuscular Hgb 28.1 pg (27.0-31.0); Mean Corpuscular Volume 82.3 fL (80.0-94.0); Platelet Count 154 10^3/uL (130-400); Red Blood Cell Count 4.52 10^6/uL (4.70-6.10); Red Cell Dist. Width 13.4 % (11.5-14.5); White Blood Cell Count 1.7 10^3/uL (4.8-10.8)
[2024-04-28 07:35] VITALS: BP 109/72
--- NOTE | 2024-04-28 07:38 | W.PN.HOSP.TC ---
Today's Communication/Plan
-
;/
Assessment / Plan
Assessment / Plan
Assessment/plan
#Sepsis POA secondary to bilateral pneumonia and COVID-19
-CXR Patchy bilateral parenchymal opacities as described, highly suggestive of bilateral pneumonia.
-Initiated on azithromycin and Rocephin
-patient immunocompromised, infectious disease consulted, input appreciated
-Check Legionella urine given hyponatremia and diarrhea
-Blood cultures x 2 ordered, pending
-Flu negative
-COVID positive (although was positive 04/20/2024, and completed a 5-day course of molnupiravir)
-Robitussin AC for ongoing cough
#ESRD s/p renal transplant 2015 and 2021
-Creatinine 1.4
-Has not required dialysis
-Continue home immunosuppressants, tacrolimus/Prednisone/mycophenolate sodium
#Leukopenia
-Likely related to immunosuppressants
-Monitor CBC
#Hypovolemic hyponatremia
-s/p IV fluids. Encouraged oral intake
-Monitor BMP
#Hyperkalemia
-resolved with kayexalate
#Essential hypertension
-Continue labetalol/doxazosin
CODE STATUS full code
DVT prophylaxis heparin SQ
Anticipated Discharge: > 48 hours
Subjective/Interval History
-
Patient seen and examined at bedside. Reports cough is improving. Denies sob, cp.
Objective Data
-
Labs:
Laboratory Results
04/28/24
05:27
WBC 1.7 L*
Hgb 12.7 L
Hct 37.2 L
Plt Count 154
Sodium 130 L
Potassium 4.5
Chloride 102
Carbon Dioxide 18 L
BUN 22 H
Creatinine 1.4 H
Glucose 96
Calcium 8.1 L
Vital Signs:
Vital Signs
Temp Pulse Resp BP Pulse Ox
99.3 F 82 20 131/79 94
04/28/24 04:33 04/27/24 23:40 04/27/24 23:40 04/27/24 23:40 04/28/24 00:59
I&O
04/27/24 04/28/24 04/29/24
06:59 06:59 06:59
Intake Total 960 / 960
Output Total 500 / 500
Balance 460 / 460
Review of Systems
-
All other systems: Reviewed and negative (except as documented)
Physical Exam
-
General: Well Developed and No Apparent Distress
Respiratory: Wheezes, Rhonchi and Crackles
Cardiac: Regular Rhythm and S1/S2
GI: Soft, Nontender, Nondistended and Normal Bowel Sounds
Musculoskeletal: No Edema
Neuro: AO x 3
Psych: Calm
--- NOTE | 2024-04-28 08:22 | W.PN.UPDATE ---
Update Note
Progress Note Update
I saw and evaluated the patient. I reviewed the resident�s note and agree with findings and plan as documented in the resident�s note.
Pt states he feels significantly better than yesterdya.
Gen: NAD, AAOx3.
Eyes: EOMI, PERRLA, no scleral icterus.
Neck: supple.
CV: remains RRR, +S1/S2, no m/r/g.
Resp: remains CTAB anteriorly
Skin: No rashes.
Neuro: remains CN 2-12 intact, non-focal.
Psych: Normal mood and affect.
04/27/24 10:53 Nasal Swab Influenza Types A & B (DONALD) - Final
Negative for Influenza A & B, NAAT
Negative results must be combined with clinical observations
and patient history.
Nucleic Acid Amplification test (NAAT)performed on the
[employer] platform.
CXR: Patchy bilateral parenchymal opacities as described, highly suggestive of bilateral pneumonia.
Sepsis due to acute B/L PNA:
-a/e/b tachypnea, leukopenia, source PNA
-currently saturating well on RA
-Flu NEG, COVID POS (was COVID POS 04/20/24, completed 5 days Paxlovid).
-Immunocompromised patient, history of renal Tx x 2, CKD3a
-cont Cellcept/prednisone/Prograf
-cont Azithro/Rocephin as per ID
-follow BCxs
-IVFs
-Robitussin with codeine for persistent cough
Essential HTN:
-cont Labetalol/Cardura with holding parameters
Hyperkalemia:
-resolved with 15g Kayexalate x 1 on admission
Hyponatremia:
-trend with IVFs
FULL/Heparin
[2024-04-28] MEDS: DELTASONE 5 MG PO (09:03)
[2024-04-28] MEDS: TRANDATE 100 MG PO ×2 (09:03→19:39)
[2024-04-28] MEDS: HEPARIN 5000 UNITS SC ×2 (09:03→19:39)
[2024-04-28] MEDS: CARDURA 2 MG PO (09:06)
[2024-04-28 10:59] LABS: % Eosinophils 0.6 % (0-6); % Immature Granulocytes 0.6 % (0-0.5); % Lymphocytes 7.1 % (20.5-51.1); % Monocytes 10.6 % (1.7-9.3); % Neutrophils 81.1 % (42.2-75.2); Absolute Lymphocytes 0.1 10^3/uL (1.2-3.4); Absolute Monocytes 0.2 10^3/uL (0.1-0.6); Absolute Neutrophils 1.4 10^3/uL (1.4-6.5); Nucleated Red Blood Cells % 0 % (-)
[2024-04-28] MEDS: TYLENOL 650 MG PO ×2 (11:50→19:39)
--- NOTE | 2024-04-28 12:42 | CM ---
Initial assessment completed with pts via phone.
Pt is a 59yr old male admitted with COVID/Bilateral PNE
Pt is immunocompromised with hx kidney transplant x2
At baseline, pt lives with his in a 2 level home with 2 steps to enter and a 2nd floor bed/bath.
Pt is indep at baseline and drives. Pt has a RW and cane, but does not actively use.
Pt has been seen by VN but could not recall with who. No hx of SNF
PCP; Sanjay Lindsay
Pharm; Shelly Infante
PLAN; dc to home. Watch for possible VN needs
[2024-04-28] MEDS: ROCEPHIN 1000 MG IV (13:32)
[2024-04-28] MEDS: AFRIN NASAL SPRAY 30 SPRAYS NASAL ×2 (13:33→19:41)
[2024-04-28] MEDS: ZITHROMAX INFUSION 250 IV (13:33)
[2024-04-28] MEDS: STERILE WATER FOR INJECTION 10 ML IV (14:18)
--- NOTE | 2024-04-28 14:39 | W.PN.ID1 ---
Date of Service
Date of Service: April 28, 2024
Today's Communication
DC abx's and observe.
Assessment / Plan
# Viral bilateral pneumonia
# Low grade fever
- Blood cx's x 2 neg
- Procalcitonin <0.25 x 2 suggestive of viral etiology. Either recent COVID vs other resp virus.
- DC ceftriaxone and azithromycin (d2)
- Supportive care. Ordered Afrin nasal decongestant
- Follow temps/wbc
# Recent COVID infection
- Not up-to-date with vaccination
- 04/20/24 COVID Ag+
- s/p 5d Molnupiravir (not Paxlovid as previously stated)
- 04/27 COVID Ag remains positive. Immunocompromised host sheds COVID longer.
-COVID isolation.
# Immunocompromised host
-Renal transplant on mycophenolate, tacrolimus, prednisone 5 mg/d
Chief Complaint
-: Pneumonia
Subjective / Review of Systems
He is starting to feel better. Cough is dry. + head congestion
No diarrhea today.
Vital Signs / Physical Exam
Vital Signs
Vital Signs
Temp Pulse Resp BP Pulse Ox
98.6 F 90 18 109/72 95
04/28/24 07:35 04/28/24 09:03 04/28/24 07:35 04/28/24 09:03 04/28/24 07:35
Selected Entries
04/27/24
23:40
Temp 100.8 F H
Physical Exam
Constitutional: No Acute Distress, Comfortable and Other
Head: Other (No frontal or maxillary sinus tenderness)
Eyes: Sclera Anicteric
Cardiovascular: Regular Rate and S1/S2
Pulmonary: Rales (crackles bases)
Gastrointestinal: Soft, Non Tender, Non Distended and Normal Bowel Sounds
Genito-Urinary: Negative CVA Tenderness
Extremities: Negative Edema
Neurological: AO x 3
Objective Data
Lab Data
Lab Results
04/28/24 05:27
04/28/24 05:27
Estimated Creat Clear 64 ml/min 04/28/24 05:27
Lactic Acid 0.8 mmol/L (0.7-2.0) 04/27/24 10:52
Total Bilirubin 0.6 mg/dl (0.2-1.3) 04/27/24 10:52
AST 43 U/L (17-59) 04/27/24 10:52
ALT 33 U/L (0-50) 04/27/24 10:52
Alkaline Phosphatase 103 U/L (38-126) 04/27/24 10:52
Most recent labs reviewed.
Micro Results:
04/27/24 10:52 Blood Culture - Preliminary
Blood/Venous No Growth in 24 hours- Final report to follow
04/27/24 10:53 Blood Culture - Preliminary
Blood/Venous No Growth in 24 hours- Final report to follow
04/28/24 08:16 Legionella Urinary Antigen - Final
Urine Negative for Legionella pneumophila Serogroup 1 antigen.
A negative result does not rule out the possiblity of
Legionella infection due to other serogroups or species of
Legionella. Clinical correlation is recommended.
04/28/24 09:13 Streptococcus pneumoniae Antigen (M - Final
Urine Negative for Streptococcus pneumoniae antigen.
A negative result does not exclude infection with
Streptococcus pneumoniae. Clinical correlation is
recommended.
04/27/24 10:53 Influenza Types A & B (DONALD) - Final
Nasal Swab Negative for Influenza A & B, NAAT
Negative results must be combined with clinical observations
and patient history.
Nucleic Acid Amplification test (NAAT)performed on the
[employer] platform.
04/27/24 CXR: Patchy bilateral parenchymal opacities as described, highly suggestive of bilateral pneumonia.
[2024-04-28 15:50] VITALS: BP 119/70
--- NOTE | 2024-04-28 18:07 | PTCARENOTE ---
pt reports loose stools this shift up to 5 times, DR Valverde made aware, no sample needed at this time.
[2024-04-28] MEDS: MELATONIN 5 MG PO (22:26)
[2024-04-28 23:25] VITALS: BP 107/65
[2024-04-29] MEDS: TYLENOL 650 MG PO ×3 (05:58→23:27)
[2024-04-29] MEDS: PROGRAF 1 MG PO ×2 (05:59→17:11)
[2024-04-29] MEDS: MYFORTIC DELAYED REL. 540 MG PO ×2 (05:59→17:11)
[2024-04-29] MEDS: PROGRAF 0.5 MG PO (06:00)
[2024-04-29] MEDS: DELTASONE 5 MG PO (07:43)
[2024-04-29] MEDS: TRANDATE 100 MG PO ×2 (07:46→20:17)
[2024-04-29] MEDS: HEPARIN 5000 UNITS SC ×2 (07:46→20:14)
[2024-04-29] MEDS: CARDURA 2 MG PO (07:46)
[2024-04-29] MEDS: AFRIN NASAL SPRAY 1 SPRAYS NASAL (07:47)
[2024-04-29 07:50] VITALS: BP 130/77
--- NOTE | 2024-04-29 07:51 | W.PN.HOSP.TC ---
Addendum entered and electronically signed by Chaparro Osorio MD 04/30/24 00:29:
Attending Addendum-
I saw and evaluated the patient. I reviewed the resident�s note and agree with findings and plan as documented in the resident�s note. Sub: complains of persistent dry cough which has improved and now frequent diarrhea. almost 1 x per hour. No NV
abd pain fevers chills. Full 12 point ROS reviewed and negative except as documented Exam: Vitals reviewed in chart GEN-ill appearing heart RRR lungs clear abd soft NT ND pos BS LE no edema
Plan:
#Sepsis due to acute Viral PNA B/L:
-a/e/b tachypnea, leukopenia
-currently saturating well on RA
-Flu NEG, COVID POS (was COVID POS 04/20/24, completed 5 days molnupiravir). day 12/27
-DC isolation
-DC Azithro/Rocephin
-follow BCxs
-IVFs
-Robitussin with codeine for persistent cough
# Pancytopenia
- viral induced
- repeat CBC in am
# Essential HTN:
-cont Labetalol/Cardura with holding parameters
# Acute Duarrhea
- likely viral etiology
- supportive care
# Hyperkalemia:
-resolved with 15g Kayexalate x 1 on admission
# Hyponatremia
-mildly improved
-trend with IVFs
-repeat BMP in am
# Renal tx- 2016 with CKD 3a
-cont Cellcept/prednisone/Prograf
-avoid nephrotoxic agent
-@ baseline cr
FULL/Heparin
Dispo DC in am
Time spent coordinating care, review of plan of care with resident, personally reviewed records in EMR, med rec, consults, notes, labs, radiology, d/w nursing � 55 mins
Original Note:
Today's Communication/Plan
-
Start Mucinex
No need for further COVID isolation
Potential discharge tomorrow pending C. difficile result
Assessment / Plan
Assessment / Plan
59-year-old male who presented to the ED on 04/27 due to persistent cough. His symptoms started April 19 with fever, chills, headache, rhinorrhea, cough, shortness of breath. He tested positive for COVID and completed 5-day course of Molnupiravir
w/o any improvement. Developed diarrhea while on the Molnupiravir. He presented to the ED after spiking a fever of 102 at home. On admission, vitals were stable and mild fever was present (100). Other labs showed leukopenia (2.1), mild hyponatremia
(130), hyperkalemia (5.2) and elevated creatinine (1.7).
Chest x-ray (04/27)
Bilateral parenchymal opacities. Repeat COVID today remains positive.
He was started on IVF, Azithro+Rocephin, Robitussin + Kayexalate.
Chronic conditions prior to admission:
Essential HTN
s/p renal transplant x 2 (2015, 2021)
CKD 3B
Restless leg syndrome
Hernia repair
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
hemorrhoidectomy
Assessment/plan
#Bilateral pneumonia
-Procalcitonin negative; likely viral etiology
-Received single dose of azithromycin and Rocephin; discontinued on 04/28
-Patient immunocompromised, infectious disease consulted, input appreciated-agree on discontinuation of antibiotics
-Negative for Influenza A & B, NAAT
Negative for Streptococcus pneumoniae antigen
Negative for Legionella pneumophila Serogroup 1 antigen.
-Blood cultures x 2, negative after 24 hours
-Continue incentive spirometer
-Saturating well; has not required supplemental oxygen
#COVID
-Initially positive on 04/20/2024, and completed a 5-day course of molnupiravir
-Still positive on 04/27
-Robitussin PRN for ongoing cough
-Started Mucinex
-Does not require COVID isolation anymore
# Diarrhea without nausea or vomiting
-Check norovirus, stool studies, C. difficile
-Start IVF therapy if patient develops symptoms or becomes hypotensive
-If C. difficile negative, will plan on discharge tomorrow
#ESRD s/p renal transplant
-Creatinine steady (1.5 this morning)
-Has not required dialysis since 2021
-Continue home immunosuppressants: tacrolimus/Prednisone/mycophenolate sodium
#Leukopenia
-Likely related to immunosuppressants
-Trending up
-Continue to monitor CBC
# Mild hypovolemic hyponatremia
-Slowly improving
-Can tolerate oral intake without any problem
-Continue to monitor BMP
#Hyperkalemia
-Resolved with Kayexalate
#Essential hypertension
-Continue labetalol/doxazosin
DVT prophylaxis
- heparin SQ
CODE STATUS full code
Anticipated Discharge: Within 24 hours
Subjective/Interval History
-
Date of Service: April 29, 2024
Patient mentions cough and shortness of breath has slightly improved. He remains afebrile. Complains of frequent watery loose stool (almost every hour). Denies any nausea or vomiting or abdominal pain. Denies any lightheadedness/dizziness.
Admits to pleuritic chest pain. Was able to sleep well last night.
Also mentions occipital parietal headache and neck pain.
Objective Data
-
Labs:
Laboratory Results
04/29/24
06:00
WBC Pending
Hgb Pending
Hct Pending
Plt Count Pending
Sodium Pending
Potassium Pending
Chloride Pending
Carbon Dioxide Pending
BUN Pending
Creatinine Pending
Glucose Pending
Calcium Pending
Vital Signs:
Vital Signs
Temp Pulse Resp BP Pulse Ox
98.0 F 69 20 130/77 96
04/29/24 07:50 04/29/24 07:50 04/29/24 07:50 04/29/24 07:50 04/29/24 07:50
I&O
04/28/24 04/29/24 04/30/24
06:59 06:59 06:59
Intake Total 960 / 960 2119 / 2119
Output Total 500 / 500 300 / 300
Balance 460 / 460 1820 / 1820
Review of Systems
-
All other systems: Reviewed and negative (except as documented)
Respiratory: Reports Cough, Trouble Breathing (Specially at night) and Other (Pleuritic chest pain)
Abdomen/GI: Reports Diarrhea
Neuro: Reports Headache
Physical Exam
-
General: Well Developed and No Apparent Distress
Respiratory: Crackles (Bibasilar (left >right)) and Other (Deep expiration provokes productive coughs)
Cardiac: Regular Rhythm and S1/S2
GI: Soft, Nontender, Nondistended and Normal Bowel Sounds
Musculoskeletal: No Edema
Neuro: Awake, Alert, Oriented and AO x 3
Psych: Calm
[2024-04-29 09:11] LABS: % Eosinophils 0.4 % (0-6); % Immature Granulocytes 0.4 % (0-0.5); % Monocytes 11.3 % (1.7-9.3); % Neutrophils 81.9 % (42.2-75.2); Absolute Lymphocytes 0.2 10^3/uL (1.2-3.4); Absolute Monocytes 0.3 10^3/uL (0.1-0.6); Hematocrit 38.6 % (39.0-52.0); Hemoglobin 13.1 g/dL (13.0-18.0); Mean Corp Hgb Conc. 33.9 g/dL (33.0-37.0); Mean Corpuscular Hgb 28.1 pg (27.0-31.0); Mean Corpuscular Volume 82.7 fL (80.0-94.0); Mean Platelet Volume 10.9 fL (7.4-10.4); Nucleated Red Blood Cells % 0 % (-); Platelet Count 189 10^3/uL (130-400); Red Blood Cell Count 4.67 10^6/uL (4.70-6.10); Red Cell Dist. Width 13.4 % (11.5-14.5); White Blood Cell Count 2.5 10^3/uL (4.8-10.8)
[2024-04-29 09:18] LABS: Blood Urea Nitrogen 24 mg/dl (9-20); Calcium 8.7 mg/dl (8.4-10.2); Carbon Dioxide 23 mmol/L (22-30); Chloride 101 mmol/L (98-107); Estimated Creatinine Clearance 60 ml/min; Glucose 104 mg/dl (70-99); Magnesium 1.5 mg/dl (1.6-2.3); Potassium 4.7 mmol/L (3.5-5.1); Sodium 131 mmol/L (135-145); eGFR 52.97
--- NOTE | 2024-04-29 10:17 | W.PN.ID1 ---
Date of Service
Date of Service: April 29, 2024
Today's Communication
Check stool for C. diff, norovirus, cx.
Assessment / Plan
# Diarrhea
- Ordered stool for C. diff, norvirus, cx.
# Viral bilateral pneumonia
# Low grade fever - resolved
- Blood cx's x 2 neg
- Procalcitonin <0.25 x 2 suggestive of viral etiology. Either recent COVID vs other resp virus.
- DC'd ceftriaxone and azithromycin (d2) on 04/28
- Supportive care. Continue Afrin nasal decongestant; Robitussin prn
# Recent COVID infection
- Not up-to-date with vaccination
- 04/20/24 COVID Ag+
- s/p 5d Molnupiravir (not Paxlovid as previously stated)
- 04/27 COVID Ag remains positive. Immunocompromised host sheds COVID longer.
-Continue COVID isolation for now.
# Immunocompromised host
-Renal transplant on mycophenolate, tacrolimus, prednisone 5 mg/d
Chief Complaint
-: Pneumonia
Subjective / Review of Systems
+ brown watery diarrhea.
Cough intermittent, worse at night.
Vital Signs / Physical Exam
Vital Signs
Vital Signs
Temp Pulse Resp BP Pulse Ox
98.0 F 69 20 130/77 96
04/29/24 07:50 04/29/24 07:50 04/29/24 07:50 04/29/24 07:50 04/29/24 07:53
Physical Exam
Constitutional: No Acute Distress
Head: Other (No frontal or maxillary sinus tenderness. )
Cardiovascular: Regular Rate and S1/S2
Pulmonary: Rales (bibase crackles)
Gastrointestinal: Soft, Non Tender and Non Distended
Extremities: Negative Edema
Neurological: AO x 3
Objective Data
Lab Data
Lab Results
04/29/24 08:07
04/29/24 08:07
Estimated Creat Clear 60 ml/min 04/29/24 08:07
Lactic Acid 0.8 mmol/L (0.7-2.0) 04/27/24 10:52
Total Bilirubin 0.6 mg/dl (0.2-1.3) 04/27/24 10:52
AST 43 U/L (17-59) 04/27/24 10:52
ALT 33 U/L (0-50) 04/27/24 10:52
Alkaline Phosphatase 103 U/L (38-126) 04/27/24 10:52
Most recent labs reviewed.
Micro Results:
04/27/24 10:52 Blood Culture - Preliminary
Blood/Venous No Growth in 24 hours- Final report to follow
04/27/24 10:53 Blood Culture - Preliminary
Blood/Venous No Growth in 24 hours- Final report to follow
04/28/24 08:16 Legionella Urinary Antigen - Final
Urine Negative for Legionella pneumophila Serogroup 1 antigen.
A negative result does not rule out the possiblity of
Legionella infection due to other serogroups or species of
Legionella. Clinical correlation is recommended.
04/28/24 09:13 Streptococcus pneumoniae Antigen (M - Final
Urine Negative for Streptococcus pneumoniae antigen.
A negative result does not exclude infection with
Streptococcus pneumoniae. Clinical correlation is
recommended.
04/27/24 10:53 Influenza Types A & B (DONALD) - Final
Nasal Swab Negative for Influenza A & B, NAAT
Negative results must be combined with clinical observations
and patient history.
Nucleic Acid Amplification test (NAAT)performed on the
[employer] platform.
04/27/24 CXR: Patchy bilateral parenchymal opacities as described, highly suggestive of bilateral pneumonia.
--- NOTE | 2024-04-29 11:44 | CM ---
Reviewed the chart notes. Patient remains on room air. PT recommends no skilled need. Patient ambulating without assistive device. CM continues to be available to patient/family and is monitoring medical plan for needs at discharge.
Plan: Discharge to home when medically stable. No needs identified at this time.
[2024-04-29] MEDS: ROBITUSSIN AC 5 ML PO ×2 (13:55→20:20)
[2024-04-29 15:30] VITALS: BP 132/85
--- NOTE | 2024-04-29 17:28 | PTCARENOTE ---
Pt called this RN to room feeling like he has a fever, shaking. Pts temp upon recheck 99.6, tylenol given for generalized body aches.
[2024-04-29] MEDS: MUCINEX 600 MG PO (20:17)
[2024-04-29] MEDS: MELATONIN 5 MG PO (20:17)
[2024-04-29] MEDS: AFRIN NASAL SPRAY 2 SPRAYS NASAL (20:22)
[2024-04-29 23:28] VITALS: BP 139/83
[2024-04-30] MEDS: PROGRAF 0.5 MG PO (05:53)
[2024-04-30] MEDS: MYFORTIC DELAYED REL. 540 MG PO ×2 (05:54→18:15)
[2024-04-30] MEDS: PROGRAF 1 MG PO ×2 (05:55→18:16)
[2024-04-30 07:41] VITALS: BP 128/72
[2024-04-30 08:08] LABS: % Eosinophils 0.3 % (0-6); % Immature Granulocytes 0.9 % (0-0.5); % Lymphocytes 5.3 % (20.5-51.1); % Monocytes 7.5 % (1.7-9.3); Absolute Lymphocytes 0.2 10^3/uL (1.2-3.4); Absolute Monocytes 0.2 10^3/uL (0.1-0.6); Absolute Neutrophils 2.7 10^3/uL (1.4-6.5); Hematocrit 39.4 % (39.0-52.0); Hemoglobin 13.5 g/dL (13.0-18.0); Mean Corp Hgb Conc. 34.3 g/dL (33.0-37.0); Mean Corpuscular Hgb 28.2 pg (27.0-31.0); Mean Corpuscular Volume 82.3 fL (80.0-94.0); Mean Platelet Volume 11.5 fL (7.4-10.4); Nucleated Red Blood Cells % 0 % (-); Platelet Count 206 10^3/uL (130-400); Red Blood Cell Count 4.79 10^6/uL (4.70-6.10); Red Cell Dist. Width 13.2 % (11.5-14.5); White Blood Cell Count 3.2 10^3/uL (4.8-10.8)
[2024-04-30] MEDS: CARDURA 2 MG PO (08:25)
[2024-04-30] MEDS: MUCINEX 600 MG PO ×2 (08:25→20:19)
[2024-04-30] MEDS: TRANDATE 100 MG PO ×2 (08:25→20:23)
[2024-04-30] MEDS: DELTASONE 5 MG PO (08:26)
[2024-04-30] MEDS: HEPARIN 5000 UNITS SC ×2 (08:26→20:19)
[2024-04-30 08:30] LABS: Blood Urea Nitrogen 22 mg/dl (9-20); Calcium 8.7 mg/dl (8.4-10.2); Carbon Dioxide 20 mmol/L (22-30); Chloride 102 mmol/L (98-107); Estimated Creatinine Clearance 60 ml/min; Glucose 105 mg/dl (70-99); Potassium 4.6 mmol/L (3.5-5.1); Sodium 130 mmol/L (135-145); eGFR 52.97
[2024-04-30] MEDS: TYLENOL 650 MG PO ×3 (08:33→23:01)
[2024-04-30] MEDS: AFRIN NASAL SPRAY 2 SPRAYS NASAL (08:34)
--- NOTE | 2024-04-30 09:22 | W.PN.HOSP.TC ---
Addendum entered and electronically signed by Chaparro Osorio MD 04/30/24 23:24:
Attending Addendum-
I saw and evaluated the patient. I reviewed the resident�s note and agree with findings and plan as documented in the resident�s note. Sub: complains of cough and frequent diarrhea. almost q 2 hours. No NV abd pain chills. had fever overnight Full
12 point ROS reviewed and negative except as documented Exam: Vitals reviewed in chart GEN-ill appearing heart RRR lungs clear abd soft NT ND pos BS LE no edema
Plan:
#Sepsis due to acute Viral PNA B/L:
-new fever
-Flu NEG, COVID POS (was COVID POS 04/20/24, completed 5 days molnupiravir). day 12/27
-DC'd isolation
-DC'd Azithro/Rocephin
-BCxs-NGTD
-check UA/reflex and procal
-repeat resp viral panel per ID
-check CT c/a/p
-cont IVFs
-Robitussin with codeine for persistent cough
# Pancytopenia
- viral induced?
- improving
- repeat CBC in am
# Essential HTN:
-cont Labetalol/Cardura with holding parameters
# Acute Diarrhea
- not improved
- likely viral etiology
- supportive care
- stool studies and cdiff neg
# Hyperkalemia:
-resolved with 15g Kayexalate x 1 on admission
# Hyponatremia hypovolemic
-stable
-start IVFs
-repeat BMP in am
# Renal tx- 2016 with CKD 3a
-cont Cellcept/prednisone/Prograf
-avoid nephrotoxic agent
-@ baseline cr
FULL/Heparin
Dispo DC in am
Time spent coordinating care, review of plan of care with resident, personally reviewed records in EMR, med rec, consults, notes, labs, radiology, d/w nursing ID� 55 mins
Original Note:
Today's Communication/Plan
-
DuoNeb as needed
Tylenol as needed for fever
Check lactic acid level
CXR
Assessment / Plan
Assessment / Plan
59-year-old male who presented to the ED on 04/27 due to persistent cough. His symptoms started April 19 with fever, chills, headache, rhinorrhea, cough, shortness of breath. He tested positive for COVID and completed 5-day course of Molnupiravir
w/o any improvement. Developed diarrhea while on the Molnupiravir. He presented to the ED after spiking a fever of 102 at home. On admission, vitals were stable and mild fever was present (100). Other labs showed leukopenia (2.1), mild hyponatremia
(130), hyperkalemia (5.2) and elevated creatinine (1.7).
Chest x-ray (04/27)
Bilateral parenchymal opacities.
He was started on IVF, Azithro+Rocephin, Robitussin + Kayexalate in ED.
Chronic conditions prior to admission:
Essential HTN
s/p renal transplant x 2 (2015, 2021)
CKD 3B
Restless leg syndrome
Hernia repair
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
hemorrhoidectomy
Assessment/plan
#Bilateral pneumonia
-Procalcitonin negative; likely viral etiology
-Received single dose of azithromycin and Rocephin; discontinued on 04/28
-Patient immunocompromised, infectious disease consulted, input appreciated-agree on discontinuation of antibiotics
-Negative for Influenza A & B, NAAT
Negative for Streptococcus pneumoniae antigen
Negative for Legionella pneumophila Serogroup 1 antigen.
-Blood cultures x 2, negative after 48 hours
-Continue incentive spirometer
-Saturating well; has not required supplemental oxygen; however, he has been more SOB since yesterday and spiked a fever last night, Will give Duoneb PRN and get a CXR
-Tylenol as needed for fever
#COVID
-Initially positive on 04/20/2024, and completed a 5-day course of molnupiravir
-Still positive on 04/27
-Robitussin PRN for ongoing cough and Afrin spray for nasal congestion
-Continue Mucinex
-Does not require COVID isolation anymore
# Diarrhea without nausea or vomiting
-Check norovirus, stool studies, C. difficile; has not yet provided a sample
-Start IVF therapy if patient develops symptoms or becomes hypotensive
#ESRD s/p renal transplant
-Creatinine steady (1.5 this morning)
-Has not required dialysis since 2021
-Continue home immunosuppressants: tacrolimus/Prednisone/mycophenolate sodium
#Leukopenia
-Likely related to immunosuppressants
-gradually trending up with left shift
-Continue to monitor CBC
# Mild hypovolemic hyponatremia
-Stable
-Can tolerate oral intake without any problem
-Continue to monitor BMP
#Hyperkalemia
-Resolved with Kayexalate
#Essential hypertension
-Continue labetalol/doxazosin
DVT prophylaxis
- heparin SQ
CODE STATUS full code
Anticipated Discharge: Within 24 hours
Subjective/Interval History
-
Date of Service: April 30, 2024
Patient mentions he is still having frequent loose stools. Not bloody or black. Spiked a fever at 102.2 last night and was given Tylenol. Is feeling shaky.
Was not able to sleep well last night. Mentions coughs are not improving and feels short of breath. Also complains of pleuritic chest pain and sore abdomen because of prolonged cough.
Denies any cardiac chest pain. No lightheadedness or dizziness.
Objective Data
-
Labs:
Laboratory Results
04/30/24
07:18
WBC 3.2 L
Hgb 13.5
Hct 39.4
Plt Count 206
Sodium 130 L
Potassium 4.6
Chloride 102
Carbon Dioxide 20 L
BUN 22 H
Creatinine 1.5 H
Glucose 105 H
Calcium 8.7
Vital Signs:
Vital Signs
Temp Pulse Resp BP Pulse Ox
98.6 F 84 17 128/72 95
04/30/24 07:41 04/30/24 07:41 04/30/24 07:41 04/30/24 08:25 04/30/24 07:41
I&O
04/29/24 04/30/24 05/01/24
06:59 06:59 06:59
Intake Total 2120 / 2120 920 / 920
Output Total 300 / 300
Balance 1820 / 1820 920 / 920
Review of Systems
-
History Source: Patient
All other systems: Reviewed and negative
Constitutional: Reports Fatigue and Sleep Disturbance
EENT: Reports Other (nasal congestion)
Respiratory: Reports Cough, Trouble Breathing and Pleurisy
Abdomen/GI: Reports Abdominal Pain (soreness), Vomiting (posttussive vomiting) and Diarrhea; Denies Bloody Stools or Black Stools
Physical Exam
-
General: Appears in Distress and Pain
Respiratory: Crackles (same as yesterday)
Cardiac: Regular Rhythm and S1/S2
GI: Soft, Nontender, Nondistended and Normal Bowel Sounds
Musculoskeletal: No Edema
Neuro: Awake, Alert and Oriented
[2024-04-30 10:56] LABS: Lactic Acid 1.6 mmol/L (0.7-2.0)
--- NOTE | 2024-04-30 12:05 | W.PN.ID1 ---
Date of Service
Date of Service: April 30, 2024
Today's Communication
See below.
Assessment / Plan
# Diarrhea
- Ordered stool for C. diff, norovirus, cx yesterday;
collected and submitted today
# Recurrence of Fever 102 last night.
# Viral bilateral pneumonia
- Re-ordered respiratory viral panel PCR
- Blood cx's x 2 neg
- Procalcitonin <0.25 x 2 suggestive of viral etiology. Either recent COVID vs other resp virus.
- Lung exam much improved today
- Observe off abx.
- Follow temps
- Supportive care. Continue Afrin nasal decongestant; Robitussin prn. Added benzonatate
# Recent COVID infection
- Correction from previous notes. Pt now states he received COVID vaccine fall 2023
- 04/20/24 COVID Ag+
- s/p 5d Molnupiravir (not Paxlovid as previously stated)
- 04/27 COVID Ag remains positive. Immunocompromised host sheds COVID longer.
-Continue COVID isolation for now.
# Immunocompromised host
-Renal transplant on mycophenolate, tacrolimus, prednisone 5 mg/d
Chief Complaint
-: Pneumonia
Subjective / Review of Systems
Had fever last night with chills.
Feels better today. Nasal congestion improved.
Still with dry cough.
+ diarrhea but no one gave him a hat for stool collection yesterday. Just had another episode of diarrhea today (in hat).
Vital Signs / Physical Exam
Vital Signs
Vital Signs
Temp Pulse Resp BP Pulse Ox
98.6 F 84 17 128/72 96
04/30/24 07:41 04/30/24 07:41 04/30/24 07:41 04/30/24 08:25 04/30/24 08:25
Selected Entries
04/29/24
23:28
Temp 102.2 F H
Physical Exam
Constitutional: Comfortable
Head: Other (No frontal or maxillary sinus tendernesss)
Cardiovascular: Regular Rate and S1/S2
Pulmonary: Rales (Improved bibasilar crackles, now minimal right base)
Gastrointestinal: Soft, Non Tender, Non Distended and Normal Bowel Sounds
Extremities: Negative Edema
Neurological: AO x 3
Objective Data
Lab Data
Lab Results
04/30/24 07:18
04/30/24 07:18
Estimated Creat Clear 60 ml/min 04/30/24 07:18
Lactic Acid 1.6 mmol/L (0.7-2.0) 04/30/24 10:29
Total Bilirubin 0.6 mg/dl (0.2-1.3) 04/27/24 10:52
AST 43 U/L (17-59) 04/27/24 10:52
ALT 33 U/L (0-50) 04/27/24 10:52
Alkaline Phosphatase 103 U/L (38-126) 04/27/24 10:52
Most recent labs reviewed.
Micro Results:
04/30/24 11:48 Influenza Type A (PCR) - Pending
Nasalpharynx Influenza Type A (H1) (PCR) - Pending
Influenza Type A (H3) (PCR) - Pending
Influenza Type B (PCR) - Pending
Resp Syncytial Virus Type A (PCR) - Pending
Resp Syncytial Virus Type B (PCR) - Pending
Adenovirus DNA (PCR) - Pending
Human Metapneumovirus (PCR) - Pending
Parainfluenza Virus Type 1 (PCR) - Pending
Parainfluenza Virus Type 2 (PCR) - Pending
Parainfluenza Virus Type 3 (PCR) - Pending
Parainfluenza Virus Type 4 - Pending
Rhinovirus (PCR) - Pending
04/29/24 11:50 - Pending
Feces/Stool
04/29/24 11:50 C. difficile GDH Antigen & Toxins - Pending
Feces/Stool
04/27/24 10:52 Blood Culture - Preliminary
Blood/Venous No Growth in 72 hours- Final report to follow
04/27/24 10:53 Blood Culture - Preliminary
Blood/Venous No Growth in 72 hours- Final report to follow
04/28/24 08:16 Legionella Urinary Antigen - Final
Urine Negative for Legionella pneumophila Serogroup 1 antigen.
A negative result does not rule out the possiblity of
Legionella infection due to other serogroups or species of
Legionella. Clinical correlation is recommended.
04/28/24 09:13 Streptococcus pneumoniae Antigen (M - Final
Urine Negative for Streptococcus pneumoniae antigen.
A negative result does not exclude infection with
Streptococcus pneumoniae. Clinical correlation is
recommended.
04/27/24 10:53 Influenza Types A & B (DONALD) - Final
Nasal Swab Negative for Influenza A & B, NAAT
Negative results must be combined with clinical observations
and patient history.
Nucleic Acid Amplification test (NAAT)performed on the
[employer] platform.
04/27/24 CXR: Patchy bilateral parenchymal opacities as described, highly suggestive of bilateral pneumonia.
[2024-04-30] MEDS: TYLENOL 1000 MG PO (12:57)
[2024-04-30] MEDS: TESSALON PERLES 100 MG PO ×2 (12:58→21:35)
--- NOTE | 2024-04-30 14:05 | CM ---
Addendum entered by Jinny Santillan RN 04/30/24 15:39:
IMM reviewed and placed on chart.
Original Note:
Reviewed the chart notes. Fever overnight. Stool for c-dif today. CM continues to be available to patient/family and is monitoring medical plan for needs at discharge.
Plan: Discharge to home when medically stable. No needs anticipated.
[2024-04-30 15:49] VITALS: BP 128/77
[2024-04-30] MEDS: OMNIPAQUE 50 ML PO (15:53)
[2024-04-30] MEDS: NSS 1000 IV (15:55)
[2024-04-30] MEDS: ROBITUSSIN AC 5 ML PO (18:12)
[2024-04-30] MEDS: AFRIN NASAL SPRAY 30 SPRAYS NASAL (20:22)
[2024-04-30] MEDS: MELATONIN 5 MG PO (21:35)
[2024-04-30 23:51] VITALS: BP 131/77
[2024-05-01] MEDS: NSS 1000 IV ×3 (00:35→15:33)
[2024-05-01 00:37] LABS: Urine Albumin 3+ (Neg - Trace); Urine Bilirubin Negative (Negative); Urine Character Clear (Clear); Urine Color Yellow; Urine Glucose Negative (Negative); Urine Ketone Negative (Negative); Urine Leukocyte Negative (Negative); Urine Nitrite Negative (Negative); Urine Occult Blood 1+ (Negative); Urine Specific Gravity 1.015 (<1.030); Urine Urobilinogen Negative (Neg - 1+)
[2024-05-01 00:55] LABS: Urine Bacteria Few (Negative); Urine Red Blood Cell 0-2 /HPF (0-2); Urine White Cell 0-2 /HPF (0-5)
[2024-05-01] MEDS: MYFORTIC DELAYED REL. 540 MG PO ×2 (05:18→18:25)
[2024-05-01] MEDS: PROGRAF 0.5 MG PO (05:18)
[2024-05-01] MEDS: PROGRAF 1 MG PO ×2 (05:19→18:25)
[2024-05-01] MEDS: TESSALON PERLES 100 MG PO ×3 (05:19→20:31)
[2024-05-01 07:45] LABS: % Eosinophils 0.3 % (0-6); % Immature Granulocytes 0.6 % (0-0.5); % Lymphocytes 4.3 % (20.5-51.1); % Monocytes 9.2 % (1.7-9.3); % Neutrophils 85.6 % (42.2-75.2); Absolute Lymphocytes 0.2 10^3/uL (1.2-3.4); Absolute Monocytes 0.3 10^3/uL (0.1-0.6); Hematocrit 37.2 % (39.0-52.0); Hemoglobin 12.4 g/dL (13.0-18.0); Mean Corp Hgb Conc. 33.3 g/dL (33.0-37.0); Mean Corpuscular Hgb 27.4 pg (27.0-31.0); Mean Corpuscular Volume 82.3 fL (80.0-94.0); Mean Platelet Volume 10.4 fL (7.4-10.4); Nucleated Red Blood Cells % 0 % (-); Platelet Count 199 10^3/uL (130-400); Red Blood Cell Count 4.52 10^6/uL (4.70-6.10); Red Cell Dist. Width 13.3 % (11.5-14.5); White Blood Cell Count 3.5 10^3/uL (4.8-10.8)
[2024-05-01 08:01] LABS: Procalcitonin 0.32 ng/ml (0.0-0.25)
[2024-05-01 08:16] LABS: Blood Urea Nitrogen 22 mg/dl (9-20); Calcium 8.1 mg/dl (8.4-10.2); Carbon Dioxide 20 mmol/L (22-30); Chloride 103 mmol/L (98-107); Estimated Creatinine Clearance 64 ml/min; Glucose 102 mg/dl (70-99); Potassium 4.7 mmol/L (3.5-5.1); Sodium 130 mmol/L (135-145); eGFR 57.54
[2024-05-01 08:28] VITALS: BP 119/77
[2024-05-01] MEDS: MUCINEX 600 MG PO ×2 (08:30→20:30)
[2024-05-01] MEDS: DELTASONE 5 MG PO ×2 (08:30→13:06)
[2024-05-01] MEDS: CARDURA 2 MG PO (08:30)
[2024-05-01] MEDS: TRANDATE 100 MG PO ×2 (08:30→20:32)
[2024-05-01] MEDS: HEPARIN 5000 UNITS SC ×2 (08:30→20:31)
[2024-05-01] MEDS: AFRIN NASAL SPRAY 2 SPRAYS NASAL (08:34)
--- NOTE | 2024-05-01 08:55 | W.PN.ID1 ---
Date of Service
Date of Service: May 01, 2024
Today's Communication
DC COVID isolation.
Started cefepime.
Assessment / Plan
# Recurrence of Fever
# Probable HAP
- Admission blood cx's x 2 neg, UA neg, CXR patchy bilateral opacities, procalcitonin x 2 negative
- 04/30 respiratory viral panel PCR negative
- 04/30 Stool C. diff neg, norovirus neg
- 05/01 blood cx''s x 3 pending
- CT a/p: mild stranding along the left lower quadrant transplant kidney
05/01 UA negative
no urine sxs
no transplant kidney tenderness,
Renal function improving - doubt BK virus rejection.
- CT chest: ground glass opacities and consolidative changes lower lobes
Start cefepime to cover for suspected hospital- acquired pneumonia
- Follow temps
# Recent COVID infection
- Correction from previous notes. Pt now states he received COVID vaccine fall 2023
- 04/20/24 COVID Ag+
- s/p 5d Molnupiravir (not Paxlovid as previously stated)
- 04/27 COVID Ag remains positive. Immunocompromised host sheds COVID longer.
- 05/01/24 COVID Ag Negative
- DC COVID isolation
# Immunocompromised host
-Renal transplant on mycophenolate, tacrolimus, prednisone 5 mg/d
Chief Complaint
-: Pneumonia
Subjective / Review of Systems
Cough is calm now. No dysuria. No transplant kidney pain.
Vital Signs / Physical Exam
Vital Signs
Vital Signs
Temp Pulse Resp BP Pulse Ox
98.4 F 82 18 119/77 95
05/01/24 08:28 05/01/24 08:28 05/01/24 08:28 05/01/24 08:30 05/01/24 08:28
Selected Entries
04/30/24
23:51
Temp 101.3 F H
Physical Exam
Constitutional: No Acute Distress and Comfortable
Head: Other (No frontal or maxillary sinus tenderness)
Eyes: No Conjunctival Hemorrhage and Sclera Anicteric
Cardiovascular: Regular Rate and S1/S2
Pulmonary: Rales (bibase crackles)
Gastrointestinal: Soft, Non Tender, Non Distended and Normal Bowel Sounds
Genito-Urinary: Other (LLQ transplant kidney nontender)
Extremities: Negative Edema
Neurological: AO x 3
Objective Data
Lab Data
Lab Results
05/01/24 07:01
05/01/24 07:01
Estimated Creat Clear 64 ml/min 05/01/24 07:01
Lactic Acid 1.6 mmol/L (0.7-2.0) 04/30/24 10:29
Total Bilirubin 0.6 mg/dl (0.2-1.3) 04/27/24 10:52
AST 43 U/L (17-59) 04/27/24 10:52
ALT 33 U/L (0-50) 04/27/24 10:52
Alkaline Phosphatase 103 U/L (38-126) 04/27/24 10:52
Most recent labs reviewed.
Micro Results:
05/01/24 00:28 Respiratory Culture - Final
Sputum Gram Stain - Final
04/30/24 11:48 Influenza Type A (PCR) - Final
Nasalpharynx Not Detected
Influenza Type A (H1) (PCR) - Final
Not Detected
Influenza Type A (H3) (PCR) - Final
Not Detected
Influenza Type B (PCR) - Final
Not Detected
Resp Syncytial Virus Type A (PCR) - Final
Not Detected
Resp Syncytial Virus Type B (PCR) - Final
Not Detected
Adenovirus DNA (PCR) - Final
Not Detected
Human Metapneumovirus (PCR) - Final
Not Detected
Parainfluenza Virus Type 1 (PCR) - Final
Not Detected
Parainfluenza Virus Type 2 (PCR) - Final
Not Detected
Parainfluenza Virus Type 3 (PCR) - Final
Not Detected
Parainfluenza Virus Type 4 - Final
Not Detected
Rhinovirus (PCR) - Final
Not Detected
04/29/24 11:50 - Final
Feces/Stool Negative for Norovirus GI and GII.
04/29/24 11:50 C. difficile GDH Antigen & Toxins - Final
Feces/Stool Negative for toxigenic C.difficile
04/27/24 10:52 Blood Culture - Preliminary
Blood/Venous No Growth in 72 hours- Final report to follow
04/27/24 10:53 Blood Culture - Preliminary
Blood/Venous No Growth in 72 hours- Final report to follow
04/28/24 08:16 Legionella Urinary Antigen - Final
Urine Negative for Legionella pneumophila Serogroup 1 antigen.
A negative result does not rule out the possiblity of
Legionella infection due to other serogroups or species of
Legionella. Clinical correlation is recommended.
04/28/24 09:13 Streptococcus pneumoniae Antigen (M - Final
Urine Negative for Streptococcus pneumoniae antigen.
A negative result does not exclude infection with
Streptococcus pneumoniae. Clinical correlation is
recommended.
04/27/24 10:53 Influenza Types A & B (DONALD) - Final
Nasal Swab Negative for Influenza A & B, NAAT
Negative results must be combined with clinical observations
and patient history.
Nucleic Acid Amplification test (NAAT)performed on the
[employer] platform.
04/27/24 CXR: Patchy bilateral parenchymal opacities as described, highly suggestive of bilateral pneumonia.
04/30/24 CT c/a/p: There are diffuse groundglass opacities throughout the lungs with more consolidative opacities in the bilateral lower lobes consistent with multifocal pneumonia. Atrophic [place] kidneys and prior right lower quadrant transplant
kidney. There is mild stranding along the left lower quadrant transplant kidney which can be seen with infection. Recommend correlation with urinalysis. Colonic diverticulosis.
--- NOTE | 2024-05-01 09:23 | PTCARENOTE ---
pt c/o chest pain more described as chest tightness this AM. Resident notified EKG NSR
--- NOTE | 2024-05-01 10:30 | PN.CDI ---
CDI
- -
CDI:
Physician Documentation Request
Admit Date: 04/27/24 13:43
Dear Doctor Chris,
Patient is admitted with sepsis due to acute viral pneumonia. Pt is also COVID positive (was COVID POS 04/20/24, completed 5 days molnupiravir). day 12/27
Please specify the viral pneumonia:
COVID pneumonia
other viral pneumonia
Other
Use of terms such as suspected, likely, concern for, or probable (associated with a specific diagnosis that is being evaluated, monitored, or treated as if it exists) are acceptable and can be coded in the inpatient setting, when documented at the
time of discharge.
Thank you,
Jesica Mercer RN, BSN
CDI Specialist
tiger text
Please use your independent medical judgment in providing your response.
[2024-05-01] MEDS: STERILE WATER FOR INJECTION 10 ML IV ×3 (10:57→20:32)
[2024-05-01] MEDS: MAXIPIME 1000 MG IV ×3 (10:58→20:32)
[2024-05-01] MEDS: ZOFRAN 4 MG PO (10:58)
[2024-05-01] MEDS: TYLENOL 650 MG PO (11:27)
[2024-05-01 12:03] VITALS: BP 134/86
[2024-05-01 13:24] LABS: NT-proBNP 3380 pg/ml
[2024-05-01 14:03] LABS: COVID-19 Antigen Negative (Negative)
--- NOTE | 2024-05-01 15:15 | CM ---
Reviewed the chart notes. Started cefepime today. VSS. Ambulating ad staci. CM continues to be available to patient/family and is monitoring medical plan for needs at discharge.
Plan: Discharge to home when medically stable.
--- NOTE | 2024-05-01 16:08 | W.PN.HOSP.TC ---
Addendum entered and electronically signed by Chaparro Osorio MD 05/01/24 21:37:
Attending Addendum-
I saw and evaluated the patient. I reviewed the resident�s note and agree with findings and plan as documented in the resident�s note. Sub: worsening cough and frequent diarrhea q 2 hours. No NV abd pain chills. had another fever overnight Full 12
point ROS reviewed and negative except as documented Exam: Vitals reviewed in chart GEN-ill appearing heart RRR lungs b/l LL rhonchi abd soft NT ND pos BS TTL LLQ (transplanted belinda) no flank tenderness LE no edema
Plan:
#Sepsis due superimposed bacterial multifocal PNA on acute covid B/L PNA:
-start cefepime
-COVID POS (was COVID POS 04/20/24, completed 5 days molnupiravir)
-DC'd isolation completed 12/27
-BCxs-NGTD
-repeat blood cx
-check UA/reflex
-procal elevated
-repeat resp viral panel -neg
-CT c/a/p-04/30-There are diffuse groundglass opacities throughout the lungs with more consolidative opacities in the bilateral lower lobes consistent with multifocal pneumonia.
-Atrophic [place] kidneys and prior right lower quadrant transplant kidney. There is mild stranding along the left lower quadrant transplant kidney which can be seen with infection.
-cont IVFs
-Robitussin with codeine for persistent cough
# Pancytopenia
- viral induced?
- improving
- repeat CBC in am
# Essential HTN:
-cont Labetalol/Cardura with holding parameters
# Acute Diarrhea
- continued
- possible viral etiology
- supportive care
- stool studies and cdiff neg
# Hyperkalemia:
-resolved with 15g Kayexalate x 1 on admission
# Hyponatremia hypovolemic
-stable
-cont IVFs
-repeat BMP in am
# Renal tx- 2016 with CKD 3a
-cont Cellcept/prednisone/Prograf
-avoid nephrotoxic agents
-@ baseline cr
FULL/Heparin
Time spent coordinating care, review of plan of care with resident, personally reviewed records in EMR, med rec, consults, notes, labs, radiology, d/w nursing ID� 56 mins
Original Note:
Today's Communication/Plan
-
U/A, U/C
Zofran PRN
Cefepime
Prograf level
B/C x2
Urine BK virus
Increase Prednisone to 10mg
CBC, BMP, pro-BNP
Negative SARS-CoV-2 antigen today, No need for COVID isolation
Monitor temps-Tylenol PRN
Assessment / Plan
Assessment / Plan
59-year-old male who presented to the ED on 04/27 due to persistent cough. His symptoms started April 19 with fever, chills, headache, rhinorrhea, cough, shortness of breath. He tested positive for COVID and completed 5-day course of Molnupiravir
w/o any improvement. Developed diarrhea while on Molnupiravir. He presented to the ED after spiking a fever of 102 at home. On admission, vitals were stable and mild fever was present (100). Other labs showed leukopenia (2.1), mild hyponatremia
(130), hyperkalemia (5.2) and elevated creatinine (1.7).
Chest x-ray (04/27); Bilateral parenchymal opacities.
He was started on IVF, Azithro+Rocephin, Robitussin + Kayexalate in ED.
Chronic conditions prior to admission:
Essential HTN
s/p renal transplant x 2 (2015, 2021)
CKD 3B
Restless leg syndrome
Hernia repair
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
hemorrhoidectomy
Assessment/plan
#Bilateral pneumonia
-Patient is immunocompromised
-Spiked a fever of 101.3 last night
-Procalcitonin negative x2 initially but positive today
-Initially though to be COVID pneumonia; with elevated procalcitonin today, cannot r/o bacterial etiology
-Appreciate ID-Received single dose of azithromycin and Rocephin; discontinued on 04/28- Started Cefepime today
-Negative for Influenza A & B, NAAT
Negative for Streptococcus pneumoniae antigen
Negative for Legionella pneumophila Serogroup 1 antigen.
-Blood cultures x 2 on 04/27, negative after 4 days
-Re-sent blood cultures today
-Continue incentive spirometer
-cont Duoneb PRN
-Monitor temps
-Tylenol as needed for fever; zofran for N/V (QTc normal)
-C/A/P CT:There are diffuse groundglass opacities throughout the lungs with more consolidative opacities in the bilateral lower lobes consistent with multifocal pneumonia.
#SIRS/sepsis
-As of today, patient meets criteria for SIRS/sepsis
-Re-sent blood cultures today
-Ct shows mild stranding along the left lower quadrant transplant kidney which can be seen with infection.
-U/A, U/C
-Urine BK virus PCR
-Increase prednisone to 10mg
-Check Prograf level
-Check pro-BNP
#COVID
-Fully vaccinated
-Initially positive on 04/20/2024, and completed a 5-day course of molnupiravir
-Repeat test today was negative
-Robitussin PRN for ongoing cough and Afrin spray for nasal congestion
-Continue Mucinex
-Does not require COVID isolation anymore
# Diarrhea
-Improving
-Check norovirus, C. difficile: negative
-Start IVF therapy if patient becomes hypotensive
-C/A/P CT:Colonic diverticulosis
#ESRD s/p renal transplant
-Creatinine steady (1.4 this morning)
-Has not required dialysis since 2021
-Continue home immunosuppressants: tacrolimus/Prednisone/mycophenolate sodium
-Check Prograf level
#Leukopenia
-Likely related to immunosuppressants
-continues to trend up with left shift
-Continue to monitor CBC
# Mild hypovolemic hyponatremia
-Stable
-Continue to monitor BMP
#Hyperkalemia
-Resolved
#Essential hypertension
-Continue labetalol/doxazosin
DVT prophylaxis
- heparin SQ
CODE STATUS full code
Anticipated Discharge: 24 - 48 hours
Subjective/Interval History
-
Date of Service: May 01, 2024
Patient spiked a fever of 101.3 last night. When I walked into his room in the morning he was vomiting. Viramontes had been feeling nauseous from last night. Mentions diarrhea has improved a little bit.
Feels there has been no improvement in cough/shortness of breath.
Complains of worsening right-sided chest pain in the morning. EKG was done and did not show any ischemic changes.
Objective Data
-
Labs:
Laboratory Results
05/01/24
07:01
WBC 3.5 L
Hgb 12.4 L
Hct 37.2 L
Plt Count 199
Sodium 130 L
Potassium 4.7
Chloride 103
Carbon Dioxide 20 L
BUN 22 H
Creatinine 1.4 H
Glucose 102 H
Calcium 8.1 L
Vital Signs:
Vital Signs
Temp Pulse Resp BP Pulse Ox
98.1 F 77 18 134/86 97
05/01/24 12:03 05/01/24 12:03 05/01/24 12:03 05/01/24 12:03 05/01/24 12:03
I&O
04/30/24 05/01/24 05/02/24
06:59 06:59 06:59
Intake Total 920 / 920 2640 / 2640
Balance 920 / 920 2640 / 2640
Review of Systems
-
History Source: Patient
All other systems: Reviewed and negative
Constitutional: Reports Fever, Fatigue and Chills
EENT: Reports Other (Nasal congestion)
Respiratory: Reports Cough and Trouble Breathing
Cardiac: Reports Chest Pain (Right-sided chest pain)
Abdomen/GI: Reports Nausea, Vomiting and Diarrhea
Genitourinary: Denies Dysuria, Frequency, Flank Pain or Urgency
Physical Exam
-
General: Appears in Distress and Pain
Respiratory: Crackles (Bibasilar, improving)
Cardiac: Regular Rhythm and S1/S2
GI: Soft, Nontender, Nondistended and Normal Bowel Sounds
Musculoskeletal: No Edema
Neuro: Awake, Alert and Oriented
[2024-05-01] MEDS: ROBITUSSIN AC 5 ML PO (20:30)
[2024-05-01] MEDS: MELATONIN 5 MG PO (20:32)
[2024-05-01] MEDS: AFRIN NASAL SPRAY NASAL (22:51)
[2024-05-01 23:16] VITALS: BP 152/93
[2024-05-02] MEDS: MYFORTIC DELAYED REL. 540 MG PO ×2 (05:19→17:27)
[2024-05-02] MEDS: PROGRAF 0.5 MG PO (05:20)
[2024-05-02] MEDS: MAXIPIME 1000 MG IV ×4 (05:20→21:00)
[2024-05-02] MEDS: STERILE WATER FOR INJECTION 10 ML IV ×4 (05:20→21:01)
[2024-05-02] MEDS: TESSALON PERLES 100 MG PO ×3 (05:20→21:01)
[2024-05-02] MEDS: PROGRAF 1 MG PO ×2 (05:20→17:26)
[2024-05-02 06:08] LABS: Troponin I < 0.012 ng/ml
[2024-05-02 06:18] LABS: % Eosinophils 0.3 % (0-6); % Lymphocytes 6.9 % (20.5-51.1); % Monocytes 13.5 % (1.7-9.3); % Neutrophils 78.3 % (42.2-75.2); Absolute Lymphocytes 0.2 10^3/uL (1.2-3.4); Absolute Monocytes 0.4 10^3/uL (0.1-0.6); Absolute Neutrophils 2.4 10^3/uL (1.4-6.5); Hematocrit 36.2 % (39.0-52.0); Mean Corp Hgb Conc. 33.1 g/dL (33.0-37.0); Mean Corpuscular Hgb 27.1 pg (27.0-31.0); Mean Corpuscular Volume 81.9 fL (80.0-94.0); Mean Platelet Volume 10.2 fL (7.4-10.4); Nucleated Red Blood Cells % 0 % (-); Platelet Count 213 10^3/uL (130-400); Red Blood Cell Count 4.42 10^6/uL (4.70-6.10); Red Cell Dist. Width 13.4 % (11.5-14.5)
[2024-05-02 06:51] LABS: Blood Urea Nitrogen 22 mg/dl (9-20); Calcium 8.2 mg/dl (8.4-10.2); Carbon Dioxide 18 mmol/L (22-30); Chloride 109 mmol/L (98-107); Estimated Creatinine Clearance 64 ml/min; Glucose 91 mg/dl (70-99); Potassium 5.1 mmol/L (3.5-5.1); Sodium 132 mmol/L (135-145); eGFR 57.54
--- NOTE | 2024-05-02 07:25 | W.PN.HOSP.TC ---
Addendum entered and electronically signed by Chaparro Osorio MD 05/02/24 23:15:
Attending Addendum-
I saw and evaluated the patient. I reviewed the resident�s note and agree with findings and plan as documented in the resident�s note. Sub: cough and diarrhea frequency improved. No NV abd pain chills. afebrile overnight Full 12 point ROS reviewed
and negative except as documented Exam: Vitals reviewed in chart GEN-NAD heart RRR lungs b/l LL rhonchi abd soft NT ND pos BS NT LLQ (transplanted kidney) LE no edema
Plan:
#Sepsis due superimposed bacterial multifocal PNA on covid pna
-cont cefepime #2
-DC home on levaquin when able
-COVID POS 04/20/24-completed 5 days molnupiravir
-DC'd isolation
-repeat blood cx-NGTD
-procal elevated
-repeat resp viral panel -neg
-CT c/a/p-04/30-There are diffuse groundglass opacities throughout the lungs with more consolidative opacities in the bilateral lower lobes consistent with multifocal pneumonia.
-Atrophic [place] kidneys and prior right lower quadrant transplant kidney. There is mild stranding along the left lower quadrant transplant kidney which can be seen with infection.
-cont IVFs
-Robitussin with codeine for persistent cough
# Leukopenia
- viral induced
- repeat CBC in am
# Essential HTN:
-cont Labetalol/Cardura with holding parameters
# Acute Diarrhea
- resolving
- viral etiology
- supportive care
- stool studies and cdiff neg
# Hyperkalemia:
-resolved with 15g Kayexalate x 1 on admission
# Hyponatremia hypovolemic
-stable
-cont IVFs
-repeat BMP in am
# Renal tx- 2016 with CKD 3a
-cont Cellcept/prednisone/Prograf
-avoid nephrotoxic agents
-@ baseline cr
FULL/Heparin
Dispo DC home in AM if able
Time spent coordinating care, review of plan of care with resident, personally reviewed records in EMR, med rec, consults, notes, labs, radiology, d/w nursing� 52 mins
Original Note:
Today's Communication/Plan
-
Monitor for clinical improvement
PT OT
ECHO
Assessment / Plan
Assessment / Plan
59-year-old male who presented to the ED on 04/27 due to persistent cough. His symptoms started April 19 with fever, chills, headache, rhinorrhea, cough, shortness of breath. He tested positive for COVID and completed 5-day course of Molnupiravir
w/o any improvement. Developed diarrhea while on Molnupiravir. He presented to the ED after spiking a fever of 102 at home. On admission, vitals were stable and mild fever was present (100). Other labs showed leukopenia (2.1), mild hyponatremia
(130), hyperkalemia (5.2) and elevated creatinine (1.7).
Chest x-ray (04/27); Bilateral parenchymal opacities.
He was started on IVF, Azithro+Rocephin, Robitussin + Kayexalate in ED.
Chronic conditions prior to admission:
Essential HTN
s/p renal transplant x 2 (2015, 2021)
CKD 3B
Restless leg syndrome
Hernia repair
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
hemorrhoidectomy
Assessment/plan
#Bilateral pneumonia
-Patient is immunocompromised
-Spiked a fever of 101.3 last night
-Procalcitonin negative x2 initially but positive today
-Initially though to be COVID pneumonia; with elevated procalcitonin today, cannot r/o bacterial etiology
-Appreciate ID-Received single dose of azithromycin and Rocephin; discontinued on 04/28- Started Cefepime today- seems he is responding well
-Negative for Influenza A & B, NAAT
Negative for Streptococcus pneumoniae antigen
Negative for Legionella pneumophila Serogroup 1 antigen.
-Blood cultures x 2 on 04/27, negative after 4 days
-Repeat blood cultures today- pending
-Continue incentive spirometer
-cont Duoneb PRN
-Monitor temps
-Tylenol as needed for fever; zofran for N/V (QTc normal)
-C/A/P CT:There are diffuse groundglass opacities throughout the lungs with more consolidative opacities in the bilateral lower lobes consistent with multifocal pneumonia.
#SIRS/sepsis
-As of today, patient meets criteria for SIRS/sepsis
-Repeat blood cultures today pending
-Ct shows mild stranding along the left lower quadrant transplant kidney which can be seen with infection.
-U/A, reflex U/C- negative
-Urine BK virus PCR-pending
-Increase prednisone to 10mg
-Check Prograf level-pending
-Check pro-BNP- elevated at 3380- Will do an Echo
-Troponin negative
#COVID
-Fully vaccinated
-Initially positive on 04/20/2024, and completed a 5-day course of molnupiravir
-Repeat test today was negative
-Robitussin PRN for ongoing cough and Afrin spray for nasal congestion
-Continue Mucinex
-Does not require COVID isolation anymore
# Diarrhea
-Improving
-Check norovirus, C. difficile: negative
-Start IVF therapy if patient becomes hypotensive
-C/A/P CT:Colonic diverticulosis
#ESRD s/p renal transplant
-Creatinine steady (1.4 this morning)
-Has not required dialysis since 2021
-Continue home immunosuppressants: tacrolimus/Prednisone/mycophenolate sodium
-Check Prograf level-pending
#Leukopenia
-Likely related to immunosuppressants
-downtrending- may be responding to Cefepime
-Continue to monitor CBC
# Mild hypovolemic hyponatremia
-Improving-not getting any fluids
-Continue to monitor BMP
#Hyperkalemia
-Resolved
#Essential hypertension
-Continue labetalol/doxazosin
DVT prophylaxis
- heparin SQ
CODE STATUS full code
Anticipated Discharge: 24 - 48 hours
Subjective/Interval History
-
Date of Service: May 02, 2024
No more fevers last night.
Diarrhea has improved-thinks cough and shortness of breath is about the same-no more nausea or vomiting. Would like to speak with Dr. Kurtz
No chest pain. Mentions being very tired ansd not being able to walk to bathroom.
Objective Data
-
Labs:
Laboratory Results
05/02/24
05:19
WBC 3.0 L
Hgb 12.0 L
Hct 36.2 L
Plt Count 213
Sodium 132 L
Potassium 5.1
Chloride 109 H
Carbon Dioxide 18 L
BUN 22 H
Creatinine 1.4 H
Glucose 91
Calcium 8.2 L
Vital Signs:
Vital Signs
Temp Pulse Resp BP Pulse Ox
98.3 F 73 18 152/93 96
05/01/24 23:16 05/01/24 23:16 05/01/24 23:16 05/01/24 23:16 05/01/24 23:16
I&O
05/01/24 05/02/24 05/03/24
06:59 06:59 06:59
Intake Total 2640 / 2640 1380 / 1380
Balance 2640 / 2640 1380 / 1380
Review of Systems
-
History Source: Patient
All other systems: Reviewed and negative
Constitutional: Reports Fever, Fatigue and Chills
EENT: Reports Other (Nasal congestion)
Respiratory: Reports Cough and Trouble Breathing
Abdomen/GI: Reports Diarrhea (Improved)
Genitourinary: Denies Dysuria, Frequency, Flank Pain or Urgency
Physical Exam
-
General: Appears in Distress and Pain
Respiratory: Crackles (Bibasilar, markedly improving)
Cardiac: Regular Rhythm and S1/S2
GI: Soft, Nontender, Nondistended and Normal Bowel Sounds
Musculoskeletal: No Edema
Neuro: Awake, Alert and Oriented
[2024-05-02 07:32] VITALS: BP 129/79
[2024-05-02] MEDS: HEPARIN 5000 UNITS SC ×2 (08:42→20:56)
[2024-05-02] MEDS: MUCINEX 600 MG PO ×2 (08:44→20:56)
[2024-05-02] MEDS: CARDURA 2 MG PO (08:44)
[2024-05-02] MEDS: TRANDATE 100 MG PO ×2 (08:45→20:56)
[2024-05-02] MEDS: DELTASONE 10 MG PO (08:46)
[2024-05-02] MEDS: AFRIN NASAL SPRAY 1 SPRAYS NASAL (08:48)
--- NOTE | 2024-05-02 10:58 | PN.CDI ---
CDI
- -
CDI:
Physician Documentation Request
Admit Date: 04/27/24 13:43
Dear Doctor Devon,
Please review the following and provide your response in the progress notes.
The purpose of this query is not to question medical judgement, but to ensure the accuracy of the conditions reported for your patient.
The diagnosis of pancytopenia is documented in the hospitalist progress notes
There is either a lack of clinical support for this condition in the current medical record, or there is a lack of recognized standard criteria to support the condition.
WBC, RBC and Plt results
Laboratory Tests
04/27/24 04/28/24 04/29/24
10:52 05:27 08:07
WBC 2.1 L* 1.7 L* 2.5 L
RBC 4.87 4.52 L 4.67 L
Plt Count 156 154 189 D
04/30/24 05/01/24 05/02/24
07:18 07:01 05:19
WBC 3.2 L 3.5 L 3.0 L
RBC 4.79 4.52 L 4.42 L
Plt Count 206 199 213
The request is for one of the following:
- Additional documentation to support the condition. Indicate if this is in lieu of what may be considered standard criteria, and/or support why the
standard criteria may not be present for this patient.
- A more appropriate diagnosis, reflecting the patient's condition
- Pancytopenia remains a known or suspected condition for this patient and is further supported by (include additional documentation in the medical
record)
- Pancytopenia has been ruled out and a more appropriate diagnosis for this patient's condition is .
- Other (please specify)
Use of terms such as suspected, likely, concern for, or probable (associated with a specific diagnosis that is being evaluated, monitored, or treated as if it exists) are acceptable and can be coded in the inpatient setting, when documented at the
time of discharge.
Thank you,
Jesica Mercer RN, BSN
CDI Specialist
tiger text
Please use your independent medical judgment in providing your response.
--- NOTE | 2024-05-02 11:13 | W.PN.ID1 ---
Date of Service
Date of Service: May 02, 2024
Today's Communication
Continue cefepime. See below.
Assessment / Plan
# Recurrence of Fever - resolving
# Probable HAP
- Admission blood cx's x 2 neg, UA neg, CXR patchy bilateral opacities, procalcitonin x 2 negative
- 04/30 respiratory viral panel PCR negative
- 04/30 Stool C. diff neg, norovirus neg
- 05/01 blood cx''s x 3 neg to date
- 04/30 CT a/p: mild stranding along the left lower quadrant transplant kidney
05/01 UA negative
no urine sxs
no transplant kidney tenderness,
Renal function improving/stable - doubt BK virus rejection.
- 04/30 CT chest: ground glass opacities and consolidative changes lower lobes
- Continue cefepime (d2) to cover for suspected hospital-acquired pneumonia
-Fever resolved
- At time of discharge, transition to levofloxacin 750mg po q24 through 05/08. QTc 437.
- PT evaluation of deconditioned state.
# s/p COVID infection
- Correction from previous notes. Pt now states he received COVID vaccine fall 2023
- 04/20/24 COVID Ag+
- s/p 5d Molnupiravir (not Paxlovid as previously stated)
- 04/27 COVID Ag remains positive. Immunocompromised host sheds COVID longer.
- 05/01/24 COVID Ag Negative
- DC COVID isolation
# Immunocompromised host
-Renal transplant on mycophenolate, tacrolimus, prednisone 5 mg/d
Chief Complaint
-: Pneumonia
Subjective / Review of Systems
Feels weak. Gets SOB walking to bathroom.
Cough continues to improve.
No abd pain.
Vital Signs / Physical Exam
Vital Signs
Vital Signs
Temp Pulse Resp BP Pulse Ox
97.9 F 73 18 129/79 95
05/02/24 07:32 05/02/24 08:45 05/02/24 07:32 05/02/24 08:45 05/02/24 07:32
Physical Exam
Constitutional: No Acute Distress and Comfortable
Head: Other (No frontal or maxillary sinus tenderness)
Eyes: No Conjunctival Hemorrhage and Sclera Anicteric
Cardiovascular: Regular Rate and S1/S2
Pulmonary: Rales (mild bibase crackles); Negative Wheezes
Gastrointestinal: Soft, Non Tender, Non Distended and Normal Bowel Sounds
Genito-Urinary: Other (LLQ transplant kidney nontender)
Extremities: Negative Edema
Musculoskeletal: Negative Spinal Tenderness
Skin: Negative Rash
Neurological: AO x 3; Negative Meningeal Signs
Objective Data
Lab Data
Lab Results
05/02/24 05:19
05/02/24 05:19
Estimated Creat Clear 64 ml/min 05/02/24 05:19
Lactic Acid 1.6 mmol/L (0.7-2.0) 04/30/24 10:29
Total Bilirubin 0.6 mg/dl (0.2-1.3) 04/27/24 10:52
AST 43 U/L (17-59) 04/27/24 10:52
ALT 33 U/L (0-50) 04/27/24 10:52
Alkaline Phosphatase 103 U/L (38-126) 04/27/24 10:52
Most recent labs reviewed.
Micro Results:
04/27/24 10:52 Blood Culture - Final
Blood/Venous No Growth - Final Report
04/27/24 10:53 Blood Culture - Final
Blood/Venous No Growth - Final Report
05/01/24 10:04 Blood Culture - Preliminary
Blood/Venous No Growth in 24 hours- Final report to follow
05/01/24 13:19 Blood Culture - Pending
Blood/Venous
05/01/24 12:48 Blood Culture - Pending
Blood/Venous
05/01/24 00:28 Respiratory Culture - Final
Sputum Gram Stain - Final
04/30/24 11:48 Influenza Type A (PCR) - Final
Nasalpharynx Not Detected
Influenza Type A (H1) (PCR) - Final
Not Detected
Influenza Type A (H3) (PCR) - Final
Not Detected
Influenza Type B (PCR) - Final
Not Detected
Resp Syncytial Virus Type A (PCR) - Final
Not Detected
Resp Syncytial Virus Type B (PCR) - Final
Not Detected
Adenovirus DNA (PCR) - Final
Not Detected
Human Metapneumovirus (PCR) - Final
Not Detected
Parainfluenza Virus Type 1 (PCR) - Final
Not Detected
Parainfluenza Virus Type 2 (PCR) - Final
Not Detected
Parainfluenza Virus Type 3 (PCR) - Final
Not Detected
Parainfluenza Virus Type 4 - Final
Not Detected
Rhinovirus (PCR) - Final
Not Detected
04/29/24 11:50 - Final
Feces/Stool Negative for Norovirus GI and GII.
04/29/24 11:50 C. difficile GDH Antigen & Toxins - Final
Feces/Stool Negative for toxigenic C.difficile
04/28/24 08:16 Legionella Urinary Antigen - Final
Urine Negative for Legionella pneumophila Serogroup 1 antigen.
A negative result does not rule out the possiblity of
Legionella infection due to other serogroups or species of
Legionella. Clinical correlation is recommended.
04/28/24 09:13 Streptococcus pneumoniae Antigen (M - Final
Urine Negative for Streptococcus pneumoniae antigen.
A negative result does not exclude infection with
Streptococcus pneumoniae. Clinical correlation is
recommended.
04/27/24 10:53 Influenza Types A & B (DONALD) - Final
Nasal Swab Negative for Influenza A & B, NAAT
Negative results must be combined with clinical observations
and patient history.
Nucleic Acid Amplification test (NAAT)performed on the
[employer] platform.
04/27/24 CXR: Patchy bilateral parenchymal opacities as described, highly suggestive of bilateral pneumonia.
04/30/24 CT c/a/p: There are diffuse groundglass opacities throughout the lungs with more consolidative opacities in the bilateral lower lobes consistent with multifocal pneumonia. Atrophic [place] kidneys and prior right lower quadrant transplant
kidney. There is mild stranding along the left lower quadrant transplant kidney which can be seen with infection. Recommend correlation with urinalysis. Colonic diverticulosis.
Care Review
Plan reviewed with: Physician (Dr. Singh)
[2024-05-02] MEDS: NSS 1000 IV ×3 (12:04→20:56)
[2024-05-02] MEDS: ROBITUSSIN AC 5 ML PO ×2 (12:15→18:25)
[2024-05-02] MEDS: TYLENOL 650 MG PO ×2 (12:17→18:26)
[2024-05-02 14:35] VITALS: BP 109/66; PULSE 75; O2SAT 96
[2024-05-02 15:12] VITALS: BP 97/61
--- NOTE | 2024-05-02 15:36 | CM ---
Reviewed the chart notes and spoke with the patient at the bedside. Per notes, patient to transition to oral abx at discharge. CM continues to be available to patient/family and is monitoring medical plan for needs at discharge.
Plan: Discharge to home when medically stable. No needs anticipated.
[2024-05-02] MEDS: MELATONIN 5 MG PO (20:57)
[2024-05-02] MEDS: AFRIN NASAL SPRAY 2 SPRAYS NASAL (21:01)
[2024-05-02 23:00] VITALS: BP 138/94
[2024-05-03] MEDS: MYFORTIC DELAYED REL. 540 MG PO (05:07)
[2024-05-03] MEDS: PROGRAF 0.5 MG PO (05:07)
[2024-05-03] MEDS: PROGRAF 1 MG PO (05:07)
[2024-05-03] MEDS: TESSALON PERLES 100 MG PO ×2 (05:08→13:10)
[2024-05-03] MEDS: STERILE WATER FOR INJECTION 10 ML IV ×2 (05:08→10:26)
[2024-05-03] MEDS: MAXIPIME 1000 MG IV ×2 (05:08→10:29)
[2024-05-03 07:59] VITALS: BP 126/81
--- NOTE | 2024-05-03 08:23 | W.PN.HOSP.TC ---
Addendum entered and electronically signed by Chaparro Osorio MD 05/03/24 22:20:
Attending Addendum-
I saw and evaluated the patient. I reviewed the resident�s note and agree with findings and plan as documented in the resident�s note. Sub: cough resolving and diarrhea frequency greatly improved. No NV abd pain chills. afebrile overnight Full 12
point ROS reviewed and negative except as documented Exam: Vitals reviewed in chart GEN-NAD heart RRR lungs b/l LL rhonchi abd soft NT ND pos BS NT LLQ (transplanted kidney) LE no edema
Plan:
#Sepsis due superimposed bacterial multifocal PNA on covid pna
-completed cefepime #3
-DC home on levaquin per ID
-COVID POS 04/20/24-completed 5 days molnupiravir
-repeat blood cx-NGTD
-procal elevated
-repeat resp viral panel -neg
-CT c/a/p-04/30-There are diffuse groundglass opacities throughout the lungs with more consolidative opacities in the bilateral lower lobes consistent with multifocal pneumonia.
-Atrophic [place] kidneys and prior right lower quadrant transplant kidney. There is mild stranding along the left lower quadrant transplant kidney which can be seen with infection.
-Robitussin with codeine for persistent cough
# Leukopenia
- viral induced
- repeat CBC as OP
# Essential HTN:
-cont Labetalol/Cardura with holding parameters
# Acute Diarrhea
- resolving
- viral etiology
- supportive care
- stool studies and cdiff neg
- Imodium prn
# Hyperkalemia:
-resolved with 15g Kayexalate x 1 on admission
# Hyponatremia hypovolemic
-stable
# Renal tx- 2016 with CKD 3a
-cont Cellcept/prednisone/Prograf
-avoid nephrotoxic agents
-tacro level - 13.3
-@ baseline cr
FULL/Heparin
Dispo DC home
Time spent coordinating care, DC planning, review of DC plan of care with resident, transition of care, review of records, med rec/scripts sent electronically, consults, notes, d/w consultants, nursing, ID, and CM�33 mins
Original Note:
Today's Communication/Plan
-
Discharge to home on Levofloxacin 750 daily through 05/08
Imodium
Assessment / Plan
Assessment / Plan
59-year-old male who presented to the ED on 04/27 due to persistent cough. His symptoms started April 19 with fever, chills, headache, rhinorrhea, cough, shortness of breath. He tested positive for COVID and completed 5-day course of Molnupiravir
w/o any improvement. Developed diarrhea while on Molnupiravir. He presented to the ED after spiking a fever of 102 at home. On admission, vitals were stable and mild fever was present (100). Other labs showed leukopenia (2.1), mild hyponatremia
(130), hyperkalemia (5.2) and elevated creatinine (1.7).
Chest x-ray (04/27); Bilateral parenchymal opacities.
He was started on IVF, Azithro+Rocephin, Robitussin + Kayexalate in ED.
Chronic conditions prior to admission:
Essential HTN
s/p renal transplant x 2 (2021)
CKD 3B
Restless leg syndrome
Hernia repair
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
hemorrhoidectomy
Assessment/plan
#Bilateral pneumonia due 2 superimposed bacterial multifocal PNA on covid pna
-Patient is immunocompromised
-No more fever since starting cefepime
-Procalcitonin negative x2 initially but positive on 05/01
-Initially though to be COVID pneumonia; with elevated procalcitonin today, possibility of superimposed HAP
-Appreciate ID-continue cefepime and levofloxacin 750 for 5 days after DC (renal dose)
-Negative for Influenza A & B, NAAT
Negative for Streptococcus pneumoniae antigen
Negative for Legionella pneumophila Serogroup 1 antigen.
-Blood cultures x 2 on 04/27, negative after 4 days
-Repeat blood cultures x3-negative to date
-Continue incentive spirometer
-cont Duoneb PRN
-Monitor temps-Tylenol as needed for fever
-C/A/P CT:There are diffuse groundglass opacities throughout the lungs with more consolidative opacities in the bilateral lower lobes consistent with multifocal pneumonia.Atrophic [place] kidneys and prior right lower quadrant transplant kidney.
There is mild stranding along the left lower quadrant transplant kidney which can be seen with infection
-U/A- negative
-Urine BK virus PCR-pending
-Appreciate nephrology-patient does not require any further interventions at this time
-Increased prednisone to 10mg
-pro-BNP- elevated at 3380- Echo (05/02): estimated ejection fraction of 55-60%
-Troponin negative
#COVID
-Fully vaccinated
-Initially positive on 04/20/2024, and completed a 5-day course of molnupiravir
-Repeat test negative on 05/01
-Robitussin PRN for ongoing cough and Afrin spray for nasal congestion
-Continue Mucinex and Tessalon
-Does not require COVID isolation
# Acute diarrhea
-Improving
-norovirus, C. difficile: negative
-Imodium
-C/A/P CT:Colonic diverticulosis
#ESRD s/p renal transplant
-Creatinine steady (1.4 this morning)
-Has not required dialysis since 2021
-Continue home immunosuppressants: tacrolimus/Prednisone/mycophenolate sodium
-Check Prograf level-pending
#Leukopenia
-Likely related to immunosuppressants
-Continue to monitor CBC
# Mild hypovolemic hyponatremia
-Improving-not getting any fluids
-Continue to monitor BMP
#Hyperkalemia
-Resolved
#Essential hypertension
-Continue labetalol/doxazosin
DVT prophylaxis
- Heparin SQ
CODE STATUS full code
Patient is stable for discharge today.
Anticipated Discharge: Today
Subjective/Interval History
-
Date of Service: May 03, 2024
Mentions diarrhea is about the same as before. States cough and shortness of breath has improved. However, he does have a bit of difficulty walking around getting short of breath.
Objective Data
-
Labs:
Laboratory Results
05/03/24
06:34
WBC Pending
Hgb Pending
Hct Pending
Plt Count Pending
Sodium Pending
Potassium Pending
Chloride Pending
Carbon Dioxide Pending
BUN Pending
Creatinine Pending
Glucose Pending
Calcium Pending
Vital Signs:
Vital Signs
Temp Pulse Resp BP Pulse Ox
97.7 F 74 18 126/81 96
05/03/24 07:59 05/03/24 07:59 05/03/24 07:59 05/03/24 07:59 05/03/24 07:59
I&O
05/02/24 05/03/24 05/04/24
06:59 06:59 06:59
Intake Total 1380 / 1380 3180 / 3180
Balance 1380 / 1380 3180 / 3180
Review of Systems
-
History Source: Patient
All other systems: Reviewed and negative
Constitutional: Reports Fever, Fatigue and Chills
EENT: Reports Other (Nasal congestion)
Respiratory: Reports Cough and Trouble Breathing
Cardiac: Denies Chest Pain or Palpitations
Abdomen/GI: Reports Diarrhea (Improved)
Genitourinary: Denies Dysuria, Frequency, Flank Pain or Urgency
Musculoskeletal: Reports No Symptoms
Skin: Reports No Symptoms
Neuro: Reports No Symptoms
Physical Exam
-
General: Appears in Distress and Pain
Respiratory: Crackles ( markedly improved, minimal bibasilar crackles heard) and Non Labored Respirations
Cardiac: Regular Rhythm and S1/S2
GI: Soft, Nontender, Nondistended and Normal Bowel Sounds
Musculoskeletal: No Edema
Neuro: Awake, Alert and Oriented
Psych: Calm
[2024-05-03] MEDS: ROBITUSSIN AC 5 ML PO (08:51)
[2024-05-03] MEDS: HEPARIN 5000 UNITS SC (08:52)
[2024-05-03] MEDS: TYLENOL 650 MG PO (08:52)
[2024-05-03] MEDS: DELTASONE 5 MG PO (08:53)
[2024-05-03] MEDS: TRANDATE 100 MG PO (08:53)
[2024-05-03] MEDS: CARDURA 2 MG PO (08:53)
[2024-05-03] MEDS: MUCINEX 600 MG PO (08:53)
[2024-05-03 08:56] LABS: Hematocrit 35.3 % (39.0-52.0); Hemoglobin 11.8 g/dL (13.0-18.0); Mean Corp Hgb Conc. 33.4 g/dL (33.0-37.0); Mean Corpuscular Hgb 27.6 pg (27.0-31.0); Mean Corpuscular Volume 82.5 fL (80.0-94.0); Mean Platelet Volume 10.9 fL (7.4-10.4); Platelet Count 251 10^3/uL (130-400); Red Blood Cell Count 4.28 10^6/uL (4.70-6.10); Red Cell Dist. Width 13.5 % (11.5-14.5)
[2024-05-03 09:37] LABS: Blood Urea Nitrogen 26 mg/dl (9-20); Calcium 8.3 mg/dl (8.4-10.2); Carbon Dioxide 18 mmol/L (22-30); Chloride 110 mmol/L (98-107); Estimated Creatinine Clearance 56 ml/min; Glucose 88 mg/dl (70-99); Sodium 134 mmol/L (135-145); eGFR 49.02
[2024-05-03 11:03] LABS: % Immature Granulocytes 1.3 % (0-0.5); % Lymphocytes 7.7 % (20.5-51.1); % Monocytes 15.4 % (1.7-9.3); % Neutrophils 74.6 % (42.2-75.2); Absolute Lymphocytes 0.2 10^3/uL (1.2-3.4); Absolute Monocytes 0.5 10^3/uL (0.1-0.6); Absolute Neutrophils 2.2 10^3/uL (1.4-6.5); Nucleated Red Blood Cells % 0 % (-)
--- NOTE | 2024-05-03 11:14 | W.PN.ID1 ---
Date of Service
Date of Service: May 03, 2024
Today's Communication
Continue antibiotics. See below�
Assessment / Plan
# Recurrence of Fever - resolving
# Probable HAP
- Admission blood cx's x 2 neg, UA neg, CXR patchy bilateral opacities, procalcitonin x 2 negative
- 04/30 respiratory viral panel PCR negative
- 04/30 Stool C. diff neg, norovirus neg
- 05/01 blood cx''s x 3 neg to date
- 04/30 CT a/p: mild stranding along the left lower quadrant transplant kidney
05/01 UA negative
no urine sxs
no transplant kidney tenderness,
Renal function improving/stable - doubt BK virus rejection.
- 04/30 CT chest: ground glass opacities and consolidative changes lower lobes
- Continue cefepime (d#3) to cover for suspected hospital-acquired pneumonia
-Fever resolved
- At time of discharge, transition to levofloxacin 750mg po q24; to continue through 05/08. QTc 437.
- PT evaluation of deconditioned state.
# s/p COVID infection
- Correction from previous notes. Pt now states he received COVID vaccine fall 2023
- 04/20/24 COVID Ag+
- s/p 5d Molnupiravir (not Paxlovid as previously stated)
- 04/27 COVID Ag remains positive. Immunocompromised host sheds COVID longer.
- 05/01/24 COVID Ag Negative
- DC COVID isolation
# Immunocompromised host
-Renal transplant; on mycophenolate, tacrolimus, prednisone 5 mg/d
Chief Complaint
-: Pneumonia
Subjective / Review of Systems
Review of Systems: No Fever, No Chills, Cough and Sputum Production (scant)
Vital Signs / Physical Exam
Vital Signs
Vital Signs
Temp Pulse Resp BP Pulse Ox
97.7 F 74 18 126/81 96
05/03/24 07:59 05/03/24 08:53 05/03/24 07:59 05/03/24 08:53 05/03/24 07:59
Physical Exam
Constitutional: No Acute Distress, Comfortable and Non-toxic
Eyes: Sclera Anicteric
Cardiovascular: Regular Rate and S1/S2
Pulmonary: Coarse and Non Labored; Negative Wheezes
Gastrointestinal: Soft, Non Tender, Non Distended and Normal Bowel Sounds
Genito-Urinary: Other (LLQ transplant kidney nontender)
Extremities: Negative Edema
Musculoskeletal: Negative Spinal Tenderness
Skin: Negative Rash
Neurological: AO x 3; Negative Meningeal Signs
Objective Data
Lab Data
Lab Results
05/03/24 06:34
05/03/24 06:34
Estimated Creat Clear 56 ml/min 05/03/24 06:34
Lactic Acid 1.6 mmol/L (0.7-2.0) 04/30/24 10:29
Total Bilirubin 0.6 mg/dl (0.2-1.3) 04/27/24 10:52
AST 43 U/L (17-59) 04/27/24 10:52
ALT 33 U/L (0-50) 04/27/24 10:52
Alkaline Phosphatase 103 U/L (38-126) 04/27/24 10:52
Most recent labs reviewed.
Micro Results:
05/01/24 10:04 Blood Culture - Preliminary
Blood/Venous No Growth in 48 hours- Final report to follow
05/01/24 13:19 Blood Culture - Preliminary
Blood/Venous No Growth in 24 hours- Final report to follow
05/01/24 12:48 Blood Culture - Preliminary
Blood/Venous No Growth in 24 hours- Final report to follow
04/27/24 10:52 Blood Culture - Final
Blood/Venous No Growth - Final Report
04/27/24 10:53 Blood Culture - Final
Blood/Venous No Growth - Final Report
05/01/24 00:28 Respiratory Culture - Final
Sputum Gram Stain - Final
04/30/24 11:48 Influenza Type A (PCR) - Final
Nasalpharynx Not Detected
Influenza Type A (H1) (PCR) - Final
Not Detected
Influenza Type A (H3) (PCR) - Final
Not Detected
Influenza Type B (PCR) - Final
Not Detected
Resp Syncytial Virus Type A (PCR) - Final
Not Detected
Resp Syncytial Virus Type B (PCR) - Final
Not Detected
Adenovirus DNA (PCR) - Final
Not Detected
Human Metapneumovirus (PCR) - Final
Not Detected
Parainfluenza Virus Type 1 (PCR) - Final
Not Detected
Parainfluenza Virus Type 2 (PCR) - Final
Not Detected
Parainfluenza Virus Type 3 (PCR) - Final
Not Detected
Parainfluenza Virus Type 4 - Final
Not Detected
Rhinovirus (PCR) - Final
Not Detected
04/29/24 11:50 - Final
Feces/Stool Negative for Norovirus GI and GII.
04/29/24 11:50 C. difficile GDH Antigen & Toxins - Final
Feces/Stool Negative for toxigenic C.difficile
04/28/24 08:16 Legionella Urinary Antigen - Final
Urine Negative for Legionella pneumophila Serogroup 1 antigen.
A negative result does not rule out the possiblity of
Legionella infection due to other serogroups or species of
Legionella. Clinical correlation is recommended.
04/28/24 09:13 Streptococcus pneumoniae Antigen (M - Final
Urine Negative for Streptococcus pneumoniae antigen.
A negative result does not exclude infection with
Streptococcus pneumoniae. Clinical correlation is
recommended.
04/27/24 10:53 Influenza Types A & B (DONALD) - Final
Nasal Swab Negative for Influenza A & B, NAAT
Negative results must be combined with clinical observations
and patient history.
Nucleic Acid Amplification test (NAAT)performed on the
[employer] platform.
04/27/24 CXR: Patchy bilateral parenchymal opacities as described, highly suggestive of bilateral pneumonia.
04/30/24 CT c/a/p: There are diffuse groundglass opacities throughout the lungs with more consolidative opacities in the bilateral lower lobes consistent with multifocal pneumonia. Atrophic [place] kidneys and prior right lower quadrant transplant
kidney. There is mild stranding along the left lower quadrant transplant kidney which can be seen with infection. Recommend correlation with urinalysis. Colonic diverticulosis.
--- NOTE | 2024-05-03 11:58 | CM ---
Reviewed the chart notes. CM continues to be available to patient/family and is monitoring medical plan for needs at discharge.
Plan: Discharge to home when medically stable. No anticipated needs identified at this time
--- NOTE | 2024-05-03 14:00 | W.CON.NEPH ---
Consultation
-
Date/Time Consultation Requested: May 02, 2024
Date/Time Consultation Performed: May 03, 2024 at 2 PM
Requesting Provider: Dr. Perez
Performing Provider: Dr. Angel Singh
Reason for Consultation: Acute on chronic kidney disease and renal transplant management
Medical History
-
Chief Complaint: Shortness of breath
History of Present Illness:
59-year-old male with past medical history of ESRD s/p renal transplant in 2015, and in May 2019 at [facility] on tacrolimus, prednisone, Hx of hypertension, who presented to the ER complaining of ongoing URI symptoms. Patient reports he tested
positive for COVID-19 on 04/20, was prescribed Paxlovid and took medication for total 5 days, but symptoms did not resolve. Most recent COVID test was negative he is diagnosed with bilateral pneumonia on antibiotics.
Renal consult for mild DANIEL on chronic kidney disease. Also some perinephric stranding but no signs of urinary tract infection.
Past Medical History
ESRD s/p renal transplant in 2015, and in May 2019 at [facility] on tacrolimus, prednisone, Hx of hypertension
Social History
Tobacco: Non-Smoker
Alcohol: None
Family History
Family History: Not Pertinent
Allergies / Home Medications
Allergy/AdvReac Type Severity Reaction Status Date / Time
No Known Allergies Allergy Verified 04/27/24 09:20
�Medication �Instructions �Recorded �Confirmed �Type
labetalol 200 mg tablet 100 mg PO BID Blood pressure 03/14/19 04/27/24 History
doxazosin 2 mg tablet (Cardura) 2 mg PO DAILY Urinary Issue 12/21/21 04/27/24 History
prednisone 5 mg tablet 5 mg PO DAILY Transplant 12/21/21 04/27/24 History
mycophenolate sodium 180 mg 540 mg PO BID Transplant 05/31/23 04/27/24 History
tablet,delayed release
tacrolimus 1 mg capsule, 1 mg PO Q12H Transplant 06/07/23 04/27/24 History
immediate-release
acetaminophen 325 mg tablet 650 mg PO Q6HPRN PRN 04/27/24 04/27/24 History
(Tylenol) FEVER/CHILLS/MILD PAIN
tacrolimus 0.5 mg capsule, 0.5 mg PO DAILY Transplant 04/27/24 04/27/24 History
immediate-release (Prograf)
benzonatate 100 mg capsule 100 mg PO Q8H #15 caps 05/03/24 Rx
levofloxacin 750 mg tablet 750 mg PO DAILY #5 tabs 05/03/24 Rx
loperamide 2 mg capsule (Imodium 2 mg PO Q6H PRN loose stool #20 05/03/24 Rx
A-D) caps
Review of Systems
-
Mild cough no chest pain no shortness of breath
All other systems: Negative unless noted
Physical Exam
Vital Signs
Vital Signs
Temp Pulse Resp BP Pulse Ox
97.7 F 74 18 126/81 96
05/03/24 07:59 05/03/24 08:53 05/03/24 07:59 05/03/24 08:53 05/03/24 07:59
Lab Results
WBC 3.0 10^3/uL (4.8-10.8) L 05/03/24 06:34
RBC 4.28 10^6/uL (4.70-6.10) L 05/03/24 06:34
Hgb 11.8 g/dL (13.0-18.0) L 05/03/24 06:34
Hct 35.3 % (39.0-52.0) L 05/03/24 06:34
Plt Count 251 10^3/uL (130-400) 05/03/24 06:34
Sodium 134 mmol/L (135-145) L 05/03/24 06:34
Potassium 5.0 mmol/L (3.5-5.1) 05/03/24 06:34
Chloride 110 mmol/L (98-107) H 05/03/24 06:34
Carbon Dioxide 18 mmol/L (22-30) L 05/03/24 06:34
BUN 26 mg/dl (9-20) H 05/03/24 06:34
Creatinine 1.6 mg/dL (0.7-1.3) H 05/03/24 06:34
eGFR 49.02 05/03/24 06:34
Glucose 88 mg/dl (70-99) 05/03/24 06:34
Calcium 8.3 mg/dl (8.4-10.2) L 05/03/24 06:34
Cfg-J-Javpscikjkx Pept 3380 pg/ml 05/01/24 12:48
Albumin 3.3 g/dl (3.5-5.0) L 04/27/24 10:52
Physical Exam
General no acute distress
HEENT no cephalic atraumatic extraocular muscle intact no scleral icterus no JVD neck supple
lungs clear to auscultation bilateral
heart regular S1-S2 positive
abdomen soft nontender positive bowel sounds
extremities no edema pulses present bilateral
Neurologically nonfocal alert and oriented x 3
Skin no lesions no abrasions no petechiae
Psych normal affect no bizarre behavior
Data Reviewed
-
Radiology: Image Personally Visualized and interpreted (CAT scan shows no obstructive uropathy)
Labs: Labs Reviewed by me
Assessment/Plan
-
Assessment:
DANIEL in setting of transplant on chronic kidney disease with a baseline creatinine around 1.5-1.6
donor kidney transplant LLQ May 2021 at [facility]
History transplant biopsy complicated by hemorrhage and 3-day hospitalization at [facility]
CKD 3 at baseline (1.71 mg/DL)
Status post COVID.
Pneumonia acute.
Plan:
Renal function relatively stable mild elevation from baseline currently at 1.6.
Continue antibiotics per infectious disease for pneumonia with transition to Levaquin through May 08
Continue immunosuppressive therapy
Tacrolimus level pending ordered on 02/28.
From renal standpoint will be okay for discharge. BK level is pending
Continue mycophenolate and tacrolimus at current dosing
[2024-05-03 14:15] VITALS: BP 128/82
[2024-05-04 07:28] LABS: BK Qnt NAAT IU/mL, Urine Not Detected; BK Qnt NAAT Interp, Urine Not Detected (Not Detected); BK Qnt NAAT log IU/mL, Urine Not Detected log IU/mL
--- NOTE | 2024-05-04 20:59 | W.DCSUMMARY ---
Addendum entered and electronically signed by Chaparro Osorio MD 05/06/24 10:02:
Read, reviewed, and agree. See same day progress note for additional details.
Alec Osorio MD
Original Note:
Documented by User: Myriam Perez MD, Resident 05/06/24 08:13
Discharge Summary
Discharge Data
Date of Admission: 04/27/24
Date of Discharge: 05/03/24
-
Pending Results: Yes
Additional Pending Results:
Urine BK virus PCR
Tacrolimus level
Hospital Course
Patient is a 59-year-old male s/p renal transplant on immunosuppressants who presented to the ED with upper respiratory symptoms including persistent cough, shortness of breath and fever. Prior to admission, he had tested positive for COVID and had
completed a 5-day course of Molnupiravir w/o any improvement. He had developed diarrhea while on Molnupiravir. Initial labs showed leukopenia, mild hyponatremia, hyperkalemia and elevated creatinine. Chest x-ray obtained in ED showed bilateral
parenchymal opacities. He was given IV fluids, single dose of Azithro and Rocephin, Robitussin and Kayexalate in the ED and was admitted for further management.
Problem list:
1.Bilateral pneumonia due to superimposed bacterial multifocal PNA on COVID PNA:
ID was consulted and followed daily. Initially, procalcitonin was normal and patient was observed off antibiotics. First set of blood cultures were negative. He received symptomatic management for viral PNA; however, his clinical condition did not
improve and he developed overnight fevers during the next few days. Abd/pelvic CT scan showed diffuse groundglass opacities throughout the lungs with more consolidative opacities in the bilateral lower lobes consistent with multifocal pneumonia.
Also, mild stranding along the left lower quadrant transplant kidney was seen. At this time, repeat procalcitonin became positive. U/A with reflex to culture and second set of blood cultures were sent and ID started cefepime. Patient's SOB and cough
markedly improved while on cefepime. U/A and repeat B/C remained negative. Echo was normal with an EF of 55-60%. ID recommended renally-dosed Levofloxacin 750 through 05/08 following discharge.
2. Acute diarrhea:
Norovirus and C. difficile came back negative. Patient's diarrhea improved during stay. Most likely viral etiology. We recommended Imodium PRN after discharge.
3. Other chronic conditions were managed well with home meds. Renal function remained stable and nephrology recommended continuing mycophenolate and tacrolimus at current dosing. PT OT visited patient daily and recommended discharge to home.
Microbiology:
Negative for Influenza A & B, NAAT
Negative for Streptococcus pneumoniae antigen
Negative for Legionella pneumophila Serogroup 1 antigen
Blood cultures (04/27) x 2: negative
Blood cultures (05/01) x3: negative
Sputum culture and gram stain (05/01): negative
Respiratory viral panel: Negative
Imaging:
CXR (04/27):
Patchy bilateral parenchymal opacities, highly suggestive of bilateral pneumonia.
Abd/pel/chest CT scan (04/30):
There are diffuse groundglass opacities throughout the lungs with more consolidative opacities in the bilateral lower lobes consistent with multifocal pneumonia.
Atrophic [place] kidneys and prior right lower quadrant transplant kidney. There is mild stranding along the left lower quadrant transplant kidney which can be seen with infection.Colonic diverticulosis
Discharge Plan
-
Patient Disposition: Home (Routine Discharge)
Discharge Diagnosis/Procedures: Sepsis due to superimposed bacterial multifocal PNA on COVID PNA, Leukopenia, Acute Diarrhea, hypovolemic hyponatremia
Condition: Fair
Diet: Regular
Activity: As tolerated
Driving Restrictions: As prior to admission
Bathing Restrictions: None
Referrals:
Sanjay Lindsay MD [Family Provider] -
Prescriptions:
New
benzonatate 100 mg Capsule
100 mg PO Q8H Qty: 15 0RF
levofloxacin 750 mg tablet
750 mg PO DAILY Qty: 5 0RF
Rx Instructions:
Take levofloxacin 750mg once daily through 05/08
loperamide [Imodium A-D] 2 mg capsule
2 mg PO Q6H PRN (Reason: loose stool) Qty: 20 0RF
Continued
labetalol 200 MG tablet
100 mg PO BID
prednisone 5 mg Tablet
5 mg PO DAILY
doxazosin [Cardura] 2 mg Tablet
2 mg PO DAILY
mycophenolate sodium 180 mg tablet,delayed release (DR/EC)
540 mg PO BID
tacrolimus 1 mg Capsule
1 mg PO Q12H
acetaminophen [Tylenol] 325 mg Tablet
650 mg PO Q6HPRN PRN (Reason: FEVER/CHILLS/MILD PAIN)
tacrolimus [Prograf] 0.5 mg Capsule
0.5 mg PO DAILY
Discharge Orders:
Discharge Patient (As Directed); Ordered 05/03/24
Ordered By: Myriam Perez
Discharge Date and Time
Discharge Date/Time: 05/03/24 14:42
Print Language: MALAYSIAN

Documented by User: Chaparro Osorio MD 05/06/24 10:02
Discharge Summary
Discharge Data
Date of Admission: 04/27/24
Date of Discharge: 05/06/24
Discharge Plan
-
Patient Disposition: Home (Routine Discharge)
Discharge Diagnosis/Procedures: Sepsis due to superimposed bacterial multifocal PNA on COVID PNA, Leukopenia, Acute Diarrhea, hypovolemic hyponatremia
Condition: Fair
Diet: Regular
Activity: As tolerated
Driving Restrictions: As prior to admission
Bathing Restrictions: None
Referrals:
Sanjay Lindsay MD [Family Provider] -
Prescriptions:
New
benzonatate 100 mg Capsule
100 mg PO Q8H Qty: 15 0RF
levofloxacin 750 mg tablet
750 mg PO DAILY Qty: 5 0RF
Rx Instructions:
Take levofloxacin 750mg once daily through 05/08
loperamide [Imodium A-D] 2 mg capsule
2 mg PO Q6H PRN (Reason: loose stool) Qty: 20 0RF
Continued
labetalol 200 MG tablet
100 mg PO BID
prednisone 5 mg Tablet
5 mg PO DAILY
doxazosin [Cardura] 2 mg Tablet
2 mg PO DAILY
mycophenolate sodium 180 mg tablet,delayed release (DR/EC)
540 mg PO BID
tacrolimus 1 mg Capsule
1 mg PO Q12H
acetaminophen [Tylenol] 325 mg Tablet
650 mg PO Q6HPRN PRN (Reason: FEVER/CHILLS/MILD PAIN)
tacrolimus [Prograf] 0.5 mg Capsule
0.5 mg PO DAILY
Discharge Orders:
Discharge Patient (As Directed); Ordered 05/03/24
Ordered By: Myriam Perez
Discharge Date and Time
Discharge Date/Time: 05/03/24 14:42
Print Language: MALAYSIAN
== END 2024-05-03 14:42 | disposition home or self-care (01) | DRG 871 ==
LOC: 2 NORTH 13:43
PROVIDERS: Physician Assistant; Student in an Organized Health Care Education/Training Program; ADMITTING PHYSICIAN Internal Medicine; ATTENDING PHYSICIAN Family Medicine; CONSULT PHYSICIAN Internal Medicine Infectious Disease; EMERGENCY PHYSICIAN Emergency Medicine; FAMILY PHYSICIAN Family Medicine; OTHER PHYSICIAN Internal Medicine Nephrology
DX: A41.89 Other specified sepsis (principal); J12.82 Pneumonia due to coronavirus disease 2019; U07.1 COVID-19; J15.9 Unspecified bacterial pneumonia; D84.821 Immunodeficiency due to drugs; E87.1 Hypo-osmolality and hyponatremia; R64 Cachexia; Z94.0 Kidney transplant status; R05.9 Cough, unspecified; I12.9 Hypertensive chronic kidney disease with stage 1 through stage 4 chronic kidney disease, or unspecified chronic kidney disease; N18.32 Chronic kidney disease, stage 3b; G25.81 Restless legs syndrome; E78.5 Hyperlipidemia, unspecified; Y95 Nosocomial condition; E86.1 Hypovolemia; E86.0 Dehydration; R19.7 Diarrhea, unspecified; E87.5 Hyperkalemia; Z79.621 Long term (current) use of calcineurin inhibitor; Z79.52 Long term (current) use of systemic steroids; Z79.624 Long term (current) use of inhibitors of nucleotide synthesis; Z87.891 Personal history of nicotine dependence; Z68.22 Body mass index [BMI] 22.0-22.9, adult; Z28.310 Unvaccinated for COVID-19; Z79.60 Long term (current) use of unspecified immunomodulators and immunosuppressants
CPT/HCPCS: 71046; 71250; 74176; 80048; 80053; 80197; 81003; 81015; 83605; 83735; 83880; 84145; 84484; 85025; 87040; 87205; 87324; 87449; 87502; 87633; 87798; 87799; 87811; 87899; 93005; 93306; 96361; 96365; 96375; 97161; 97164; 97165; 97530; 99285

== ENCOUNTER 2024-05-07 20:38 | Inpatient (IN) | payer MEDICARE, OTHER, SELFPAY ==
[2024-05-07] VITALS (9 sets, daily range): BP systolic 123–144; BP diastolic 76–94; BMI 22.7; BMI 22.0
[2024-05-07 13:36] LABS: % Basophils 0.1 % (0-2); % Eosinophils 0.6 % (0-6); % Immature Granulocytes 1.9 % (0-0.5); % Lymphocytes 3.3 % (20.5-51.1); % Neutrophils 81.1 % (42.2-75.2); Absolute Immature Granulocytes 0.1 10^3/uL (0-0.05); Absolute Lymphocytes 0.2 10^3/uL (1.2-3.4); Absolute Monocytes 0.9 10^3/uL (0.1-0.6); Absolute Neutrophils 5.7 10^3/uL (1.4-6.5); Hematocrit 38.4 % (39.0-52.0); Hemoglobin 12.5 g/dL (13.0-18.0); Mean Corp Hgb Conc. 32.6 g/dL (33.0-37.0); Mean Corpuscular Hgb 27.8 pg (27.0-31.0); Mean Corpuscular Volume 85.3 fL (80.0-94.0); Mean Platelet Volume 10.1 fL (7.4-10.4); Nucleated Red Blood Cells % 0 % (-); Platelet Count 354 10^3/uL (130-400); Red Cell Dist. Width 13.4 % (11.5-14.5)
[2024-05-07 13:52] LABS: ALT (SGPT) 171 U/L (0-50); AST (SGOT) 114 U/L (17-59); Albumin 3.3 g/dl (3.5-5.0); Alkaline Phosphatase 211 U/L (38-126); Blood Urea Nitrogen 28 mg/dl (9-20); Calcium 8.9 mg/dl (8.4-10.2); Carbon Dioxide 21 mmol/L (22-30); Chloride 105 mmol/L (98-107); Glucose 124 mg/dl (70-99); Potassium 4.8 mmol/L (3.5-5.1); Sodium 134 mmol/L (135-145); Total Bilirubin 0.7 mg/dl (0.2-1.3); Total Protein 5.8 g/dl (6.3-8.2); eGFR 49.02
[2024-05-07] MEDS: ZOSYN 50 IV (17:50)
--- NOTE | 2024-05-07 18:03 | ED.GENMED ---
History of Present Illness
General
Chief Complaint: Cough
Source: patient and records
Time Seen by Provider: 05/07/24 17:21
History of Present Illness
History of Present Illness:
59-year-old male with past medical history of kidney transplant done at [facility] (1 done 6 years ago, the other 3 years ago) presenting to the emergency department after he was recently admitted here for COVID-pneumonia, subsequently developed
bacterial pneumonia and treated with IV antibiotics, discharged home with oral antibiotics but states he continues to have worsening cough, now spitting up blood and states having chest discomfort with continued shortness of breath. Patient is not
on any anticoagulant medications. He is unaware of any fevers at home, chills, rigors, nausea or vomiting. He also denies any lower extremity edema, exertional dyspnea, orthopnea. No known sick contacts or recent travel. Patient reports good
compliance with his antirejection medications.
Past History
Past History
ED Past Medical History: HTN and Renal failure
ED Past Surgical History: Other (Renal transplant [facility] 2014)
Social History
Tobacco: Non-smoker
Alcohol: None
Drug: None
Personal:
Living: with family
Employment: Employed
Family History
Family History: Other (Noncontributory)
Review of Systems
Review of Systems
All Other Systems: ROS reviewed and negative except as documented in HPI and ROS
Phy Exam
Physical Exam
Physical Exam:
GENERAL: Alert , in no apparent distress
EYE: clear conjunctiva
NECK: Supple
ENT: o/p clr, mmm.
CARDIAC: Regular rate and rhythm .
LUNGS: faint rhonchi at the right base, no wheezing or rails, no acute respiratory distress, speaking full sentences
ABDOMEN: Soft, without focal tenderness, no r/g, no cvat
NEUROLOGICAL: Alert and oriented
SKIN: Warm and dry, skin intact.
MUSCULOSKELETAL: No edema, well perfused. no calf ttp
PSYCH: Normal and appropriate interaction.
Scores
Heart Failure Risk
Heart Failure Risk Score: Not Applicable
Heart Score for Chest Pain Patients
STEMI patient?: Not applicable
Withdrawal Assessment of Alcohol
Withdrawal Assessment Completed?: Not applicable
Course
Orders/Labs/Results
Orders:
Orders
05/07/24 13:01
Chest [CR Chest - 2 Views ] Urgent
Comment:
Reason For Exam: coughing up blood
05/07/24 13:24
Complete Blood Count/With Diff Urgent
Comprehensive Metabolic Panel Urgent
05/07/24 17:31
Piperacillin/Tazo 3.375 Gram [Zosyn] 3.375 gram in 50 ml IV NOW
US Periph Venous LOWER Ext Kike Urgent
Comment:
Reason For Exam: cough, possible DVT/PE
05/07/24 17:33
Electrocardiogram (*1) Urgent
Reason for Study: Shortness of Breath
EKG- Treatment ONCE
05/07/24 17:34
Add On- LAB Urgent
Tests Added?: troponin/BNP
05/07/24 17:45
NT-proBNP Urgent
Comment: COLLECT. NO GREEN TOP IN LAB
Troponin I Urgent
Comment: COLLECT. NO GREEN TOP IN LAB
05/07/24 17:54
Vancomycin [Vancocin] 1,500 mg 0.9% Sodium Chloride 500 ml [Nss] 500 ml IV NOW
05/07/24 19:48
Admit/Transfer Patient As Directed
Co-Sign Provider:
Level of Care: Inpatient admission
Assign to:: Medical/Surgical
Physician / Group: gumaro farias
Diagnosis: pneumonia
Reason for Hospitalization: pneumonia
Expected length of stay greater than two midnights?: Yes
ELOS- Estimated Length of Stay in days: 3
I certify the patient meets the requirements for IP care: Yes
PRN Pain Medication Management As Directed
May give lesser potent ordered pain med per pt: Yes
preference::
Protocol:: Medication orders for pain may be administered in a
manner that supports deferring to patient preference
when the pt is:
- Requesting an ordered lesser potent pain medication.
Least to most potent pain medications are defined
as: acetaminophen < NSAID < tramadol < opioids
(morphine, oxycodone, hydromorphone).
- Requesting a lesser dose of the same medication IF
ORDERED.
- Requesting a less intrusive route of administration
if both routes are prescribed by the provider (PO <
IV).
05/07/24 19:50
Code Status As Directed
Resuscitation Status: Full Code
05/07/24 20:06
Procalcitonin Stat
PCT Algorithmm Indication: Respiratory
Abnormal Lab Results
05/07/24
13:24
RBC 4.50 L 10^6/uL
(4.70-6.10)
Hgb 12.5 L g/dL
(13.0-18.0)
Hct 38.4 L %
(39.0-52.0)
MCHC 32.6 L g/dL
(33.0-37.0)
Abs Immat Gran (auto) 0.1 H 10^3/uL
(0-0.05)
Absolute Lymphs (auto) 0.2 L 10^3/uL
(1.2-3.4)
Absolute Monos (auto) 0.9 H 10^3/uL
(0.1-0.6)
Immature Gran % 1.9 H %
(0-0.5)
Neutrophils % 81.1 H %
(42.2-75.2)
Lymphocytes % 3.3 L %
(20.5-51.1)
Monocytes % 13.0 H %
(1.7-9.3)
Sodium 134 L mmol/L
(135-145)
Carbon Dioxide 21 L mmol/L
(22-30)
BUN 28 H mg/dl
(9-20)
Creatinine 1.6 H mg/dL
(0.7-1.3)
Glucose 124 H mg/dl
(70-99)
AST 114 H U/L
(17-59)
ALT 171 H U/L
(0-50)
Alkaline Phosphatase 211 H U/L
(38-126)
Total Protein 5.8 L g/dl
(6.3-8.2)
Albumin 3.3 L g/dl
(3.5-5.0)
05/07/24 13:24
05/07/24 13:24
Vital Signs
Initial and Last Documented VS:
Initial Vital Signs
Temp Pulse Resp BP Pulse Ox
98.1 F 78 20 130/76 97
05/07/24 13:18 05/07/24 13:18 05/07/24 13:18 05/07/24 13:18 05/07/24 13:18
Last Documented Vital Signs
Temp Pulse Resp BP Pulse Ox
98.1 F 73 18 130/82 96
05/07/24 13:18 05/07/24 15:31 05/07/24 15:31 05/07/24 20:00 05/07/24 20:15
MDM/Problems Addressed
Differential Diagnosis Includes:
Progressive pneumonia, pulmonary embolism, DVT, anemia, no symptoms to suggest hematemesis or esophageal varices
MDM/Problems Addressed:
59-year-old male, immunocompromised, presents to the emergency department after being recently discharged from this facility for COVID-pneumonia with superimposed bacterial pneumonia due to hemoptysis over the last 2 to 3 days, gradually worsening
and accompanied with continued shortness of breath and chest discomfort. Labs were initiated on arrival which shows stable chronic kidney disease, no leukocytosis, stable hemoglobin. Patient does have mild transaminitis which is likely secondary
to recent COVID infection. Chest x-ray ordered shows progressive pneumonia. Given patient is immunocompromised, unable to order CT scan with IV dye load to rule out PE I do feel patient will need readmission for further evaluation. Will cover
with broad-spectrum antibiotics at this time. Ultrasound of the bilateral lower extremities ordered to see if any DVT and potential for needing more emergent anticoagulation.
Chronic conditions affecting care: Immunosuppressed
Acute Exacerbation and/or Progression of Chronic Illness: Immunosuppressed
*Radiology
Radiology exam reviewed: radiology read reviewed (Progression of pneumonia)
*Pulse Oximetry
Patient hypoxic: no
*EKG
Interpreted by ED Provider?: Yes
Heart Rate: 72
Rate: normal
Rhythm: sinus
[place]: normal axis
Ischemia: no ischemia
*Detective Captain Interpretation
Rate: normal
Rhythm: sinus
*Critical Care Note
Total Time (30-74mins, 75-104mins- exclusive of procedures): Not Applicable
Data Reviewed
Review of Other/Old Records Reveals: Labs, Records and Discharge Summary
Patient Management
Discussion with other providers: Hospitalist
Escalation/DeEscalation of care consider admission/obs:
Hospitalist team accepts for continued evaluation and treatment due to worsening pneumonia and new hemoptysis.
ED Attending Note
-
Portions of this chart may have been created with voice recognition software.� Occasional wrong word or��sound alike� substitutions may have occurred due to the inherent limitations of voice recognition software.
Discharge Plan
Departure
Patient Disposition: Admit
Date of Disposition: 05/07/24
Time of Disposition: 19:25
Presentation/result/management discussed w/ accepting MD/DO: Hospitalist
Discharge Problem:
Pneumonia, Hemoptysis
Prescriptions:
No Action
labetalol 200 MG tablet
100 mg PO BID
prednisone 5 mg Tablet
5 mg PO DAILY
doxazosin [Cardura] 2 mg Tablet
2 mg PO DAILY@1200
mycophenolate sodium 180 mg tablet,delayed release (DR/EC)
540 mg PO BID@0600,1800
tacrolimus 1 mg Capsule
1 mg PO Q12H@0600,1800
acetaminophen [Tylenol] 325 mg Tablet
650 mg PO Q6HPRN PRN (Reason: headache)
tacrolimus [Prograf] 0.5 mg Capsule
0.5 mg PO DAILY@0600
levofloxacin 750 mg tablet
750 mg PO DAILY Qty: 5 0RF
Rx Instructions:
Take levofloxacin 750mg once daily through 05/08
benzonatate 100 mg capsule
100 mg PO BID
Referrals:
UNKNOWN - PT DOES,NOT KNOW [Unknown Provider] -
Interventions
Interventions:
*Risk Screen - Suicide Last Done: 05/07/24 13:18
*General Assessment Last Done: 05/07/24 13:18
*Neglect/Abuse Screening Last Done: 05/07/24 13:18
ED- Fall Risk Assessment Last Done: 05/07/24 18:23
*ED COVID-19 Vaccine History Last Done: 05/07/24 16:31
ED- Pulmonary Assessment Last Done: 05/07/24 16:31
Discharge Date and Time
Print Language: PORTUGUESE
[2024-05-07 18:20] LABS: NT-proBNP 2640 pg/ml; Troponin I < 0.012 ng/ml
[2024-05-07] MEDS: VANCOCIN 530 MG IV (18:25)
--- NOTE | 2024-05-07 19:31 | HPS.HSE ---
Family Physician
-
Family Physician: NOT KNOW UNKNOWN - PT DOES
Chief Complaint
-
sob
cough
History of Present Illness
59-year-old male with past medical history of kidney transplant done at [facility] [address] (1 done 6 years ago, the other 3 years ago), hypertension, recent COVID-19 infection presenting worsening cough, now spitting up blood and states having chest
discomfort with continued shortness of breath. patient stated very fatigue and weak. sob with walking. He is unaware of any fevers at home, chills, rigors, nausea or vomiting. He is complaining of diarrhea. he also denies any lower extremity
edema, exertional dyspnea, orthopnea. No known sick contacts or recent travel. Patient reports good compliance with his antirejection medications. Patient was admitted here from 04/27 to 05/04 with covid pneumonia. Patient was treated with IV
antibiotics and sent home on Levaquin. Patient denied some improvement but continued to have short of breath and productive cough with bloody sputum.
Medical History
Past Medical History
Past Medical History: Reports Other
Additional Past Medical History:
AAA BPH
Colon polyps
Hypertension
Kidney transplant
Hemorrhoids
Diverticulitis
Past Surgical History: Reports Other
Additional Past Surgical History:
Hernia repair
Kidney transplant
Right upper extremity fistula. Creation
Social History
Tobacco: Non-smoker
Alcohol: None
Drug: None
Personal:
Living: With Family
Family History
Family History: Not pertinent
Allergies / Home Medications
Allergies reflects when Allergies were last updated in [facility].
Home Medications with original date entered in [facility]
Allergy/Medication List:
Allergies
Allergy/AdvReac Type Severity Reaction Status Date / Time
No Known Allergies Allergy Verified 05/07/24 13:21
Home Medications
labetalol 200 mg tablet 100 mg PO BID Blood pressure 03/14/19
doxazosin 2 mg tablet (Cardura) 2 mg PO DAILY@1200 Urinary Issue 12/21/21
prednisone 5 mg tablet 5 mg PO DAILY Transplant 12/21/21
mycophenolate sodium 180 mg tablet,delayed release 540 mg PO BID@0600,1800 Transplant 05/31/23
tacrolimus 1 mg capsule, immediate-release 1 mg PO Q12H@0600,1800 Transplant 06/07/23
acetaminophen 325 mg tablet (Tylenol) 650 mg PO Q6HPRN PRN headache 04/27/24
tacrolimus 0.5 mg capsule, immediate-release (Prograf) 0.5 mg PO DAILY@0600 Transplant 04/27/24
levofloxacin 750 mg tablet 750 mg PO DAILY #5 tabs 05/03/24
benzonatate 100 mg capsule 100 mg PO BID 05/07/24
Review of Systems
-
Constitutional: Reports No Symptoms
EENT: Reports No Symptoms
Respiratory: Reports Cough, Hemoptysis and Trouble Breathing
Cardiac: Reports No Symptoms
Abdomen/GI: Reports Diarrhea
: Reports No Symptoms
Musculoskeletal: Reports No Symptoms
Skin: Reports No Symptoms
Neurological: Reports Weakness
Endocrine: Reports No Symptoms
Hematologic/Lymphatic: Reports No Symptoms
Psych: Reports No Symptoms
Physical Exam
Vital Signs
Vital Signs
Temp Pulse Resp BP Pulse Ox
98.1 F 73 18 132/88 98
05/07/24 13:18 05/07/24 15:31 05/07/24 15:31 05/07/24 18:00 05/07/24 18:15
Physical Exam
General: Well Developed, Well Nourished and No Apparent Distress
HEENT: NormoCephalic, Moist mucous membranes and Atraumatic
Respiratory: Clear
Cardiac: S1/S2 and Regular Rhythm; No Murmur or Rub
GI: Soft, Non Tender, Non Distended and Normal Bowel Sounds; No Organomegaly
Rectal: Deferred by Provider
Musculoskeletal: No Clubbing, No Cyanosis and No Edema
Skin: No Rash
Neuro: AO x 3 and Nonfocal/grossly intact
Psych: Calm
Laboratory Results
-
05/07/24 13:24
05/07/24 13:24
Laboratory Results
Total Bilirubin 0.7 mg/dl (0.2-1.3) 05/07/24 13:24
AST 114 U/L (17-59) H 05/07/24 13:24
ALT 171 U/L (0-50) H 05/07/24 13:24
Alkaline Phosphatase 211 U/L (38-126) H 05/07/24 13:24
Troponin I < 0.012 ng/ml 05/07/24 17:45
Data Reviewed
-
Diagnostic Radiology: Report Reviewed by me
Lab Data: Labs Reviewed by me
Impression/Plan
-
# Hemoptysis/Short of breath likely secondary to pneumonia
-Chest x-ray with impression of Progressive patchy bilateral pneumonia. Trace pleural effusion.
-IV Zosyn and Vanco continued
-Procal pending
-Tylenol as needed for fever
-Mucinex as needed for cough
-Nebs as needed for shortness and wheezing
# Chronic kidney disease stage IIIb
-Creatinine 1.6 continue to monitor
# Renal tx- 2016 with CKD 3a
-cont Cellcept/prednisone/Prograf
-avoid nephrotoxic agents
# transaminitis likely from abx
-AST 114, ALT 171
-Hold Levaquin
-Patient denied any abdominal pain
-Trend LFTs
# Essential HTN:
-cont Labetalol/Cardura with holding parameters
#Diarrhea likely from antibiotics
- stool studies and cdiff neg
-Continue to monitor
FULL/Heparin
--- NOTE | 2024-05-07 20:10 | W.PN.UPDATE ---
Update Note
Progress Note Update
This note serves as an addendum to the H&P by community arts worker KELLY Crista MARIO
HPI
59M immunocompromised host, KTP patient on chr immunosuppressants recent admission (04/27- 05/03/24) with recent COVID-pneumonia complicated by bacterial HAP treated with IVV CFP followed by LVQ 750mg daily audrey til 05/08 seen at ER:
- he was DC'd on LVQ on 05/03
- worsening cough complicated with hemoptysis
- asso. chest discomfort and shortness of breath.
- not on any anticoagulant medications.
- compliance with his antirejection medications.
ROS
- Denied fevers at home, chills, rigors, nausea or vomiting.
- Denied lower extremity edema, exertional dyspnea, orthopnea.
- No known sick contacts or recent travel.
PHX; as above
Vital Signs
Temp Pulse Resp BP Pulse Ox
98.1 F 73 18 130/82 96
05/07/24 13:18 05/07/24 15:31 05/07/24 15:31 05/07/24 20:00 05/07/24 20:15
PE
Gen: Not toxic
HEENT: anictric
Neck: supple
Lungs: symmetric AE
Cor: RRR S1 S2
Abdomen: benign
PRODUCTION GRAPHIC DESIGNER: AAO3
MS: jovan amilcar
Psych:nl mood andd ffect
Data
Laboratory Tests
05/03/24 05/07/24 05/07/24
06:34 13:24 17:45
WBC 7.0
Hgb 11.8 L 12.5 L
Plt Count 354 D
Sodium 134 L
Carbon Dioxide 21 L
BUN 28 H
Creatinine 1.6 H 1.6 H
eGFR 49.02
AST 114 H
ALT 171 H
Alkaline Phosphatase 211 H
Troponin I < 0.012
Jtn-Y-Koeneyhgdez Pept 2640
Procalcitonin
CXR:
Progressive patchy bilateral pneumonia. Trace pleural effusion.
04/30/23 CT chest: ground glass opacities and consolidative changes lower lobes
EKG
NORMAL SINUS RHYTHM
NORMAL ECG
WHEN COMPARED WITH ECG OF 02-MAY-2024 05:15,
NO SIGNIFICANT CHANGE WAS FOUND
Last hospitalist admission:
Date of Admission: 04/27/24 - Date of Discharge: 05/03/24
ASSESSMENT & PLAN
Immunocompromised host
- KTP patient on on mycophenolate, tacrolimus, prednisone 5 mg/d
Hemoptysis with worsening SOB; Adequately oxygenating
POS CXR for progressive PNA - known HAP
- Agree with IV Vanco and Zosyn till furthe evalaute by ID
- quantify hemoptysis
- ID consulted
New abn LFTS suspect durg ( LVQ) induced ALI ( SERGIO )
- DC LVQ and observe LFTs
TPK with stable CKD3a
Avoid CTA due to renal function (baseline creatinine of 1.5-1.7)GFR 38.
- Renal consult
DVT Px: SCD
Full code
IP MS
[2024-05-07 20:47] LABS: Procalcitonin < 0.05 ng/ml (0.0-0.25)
--- NOTE | 2024-05-07 21:52 | PHA.VAN.IN ---
Assessment
- Assessment
Renal Function: Appears similar to baseline
Concomitant Antimicrobials: ZOSYN
- Previous Dosing Experience
Previous Regimen: NONE
AUC Dosing Plan
- Dosing Variables
Dosing Weight (kg): 82.2
Dosing CrCl (ml/min): 57
Vd coefficient (L/kg): 0.7
- Empiric Dosing
Initial / Loading Dose: 1500MG
Maintenance Regimen: 1500MG IV Q24H
Estimated AUC (mcg*h/mL): 524
Estimated Peak (mcg*h/mL): 36.7
Estimated Trough (mcg/ml): 11.5
Estimated Half Life (H): 13.4
Pharmacokinetics Vancomycin I
- -
Patient Age: 59
Patient Sex: Male
Vancomycin Day #: 1
Indication: Pulmonary/Respiratory
Requesting Provider: SHELBI
Height / Weight:
Height 6 ft 3 in
Actual Weight 82.2 kg
Pertinent Past Medical History: KIDNEY TRANSPLANT; RECENT HOSPITALIZATION FOR HAP
- Vital Signs / Lab Results
Temp Pulse Resp BP Pulse Ox
98.1 F 73 18 130/82 95
05/07/24 13:18 05/07/24 15:31 05/07/24 15:31 05/07/24 20:00 05/07/24 20:30
Lab Results - Hematology
05/07/24
13:24
WBC 7.0
Lab Results - Chemistry
05/07/24
13:24
BUN 28 H
Creatinine 1.6 H
Albumin 3.3 L
--- NOTE | 2024-05-07 21:59 | PTCARENOTE ---
Pt arrived from the ED via stretcher. Patient ambulated into the room. AAOx3, VSS. Pt complains of a cough and SOB on exertion. 97% on RA. Patient oriented to the room, call stern is within reach.
[2024-05-07] MEDS: TRANDATE 100 MG PO (22:13)
[2024-05-07] MEDS: TYLENOL 650 MG PO (22:18)
[2024-05-07] MEDS: MYFORTIC DELAYED REL. 540 MG PO (22:33)
[2024-05-07] MEDS: PROGRAF 1 MG PO (22:33)
[2024-05-07] MEDS: MELATONIN 10 MG PO (22:33)
[2024-05-07] MEDS: CARDURA 2 MG PO (22:37)
[2024-05-07] MEDS: ZOSYN 100 IV (23:00)
--- NOTE | 2024-05-08 03:33 | DOWNTIME ---
There was a Scatter Lab Client Light Oil Operator Downtime on 05/08/2024 from 0100 to 05/08/2023 at 0235 . Downtime documentation of patient's care, including medication administrations, has been reconciled in the electronic record per guidelines. Refer to the
patient's paper chart under the miscellaneous tab to see printed paper medication records and downtime forms.
[2024-05-08] MEDS: ZOSYN 100 IV ×2 (05:48→11:54)
[2024-05-08] MEDS: PROGRAF 1 MG PO (05:48)
[2024-05-08] MEDS: MYFORTIC DELAYED REL. 540 MG PO (05:48)
[2024-05-08] MEDS: PROGRAF 0.5 MG PO (05:48)
[2024-05-08] MEDS: VANCOCIN 530 MG IV (06:30)
--- NOTE | 2024-05-08 07:33 | W.PN.HOSP.TC ---
Today's Communication/Plan
-
Continue current antibiotics. Infectious diseases consulted for progressive pneumonia for patient on IV vancomycin and Zosyn. The patient is post kidney transplant with stable CKD stage III -we will avoid imaging that may cause kidney injury.
Assessment / Plan
Assessment / Plan
Assessment/Plan:
-Hemoptysis/shortness of breath secondary to pneumonia:
Chest x-ray gives impression of progressive patchy bilateral pneumonia and trace pleural effusion.
Continue IV Zosyn and vancomycin -infectious diseases consulted
Procalcitonin within normal limits at 0.05
Acetaminophen for fever
Mucinex as needed for cough
Will add nebulizer if patient has shortness of breath and wheezing.
Pulmonology consulted
-Chronic kidney disease stage IIIb:
S/p kidney transplant
Creatinine at 1.6 on admission and is 1.7 on 05/08/2024
eGFR is 45.58
Continue CellCept/prednisone/Prograf
Avoid nephrotoxic agents
Nephrology consulted
-Transaminitis secondary to antibiotic administration:
AST 114 and ALT 171 on admission. AST 63 on 05/08/2024 and ALT 138 on 05/08/2024
Alkaline phosphatase elevated at 211 on admission. On 05/08/2024 it was 192
Levaquin held
Follow LFTs and trend
-Essential hypertension:
Continue labetalol
Cardura held
-Diarrhea:
Possibly secondary to antibiotics
Stool studies and C. difficile negative
Continue to monitor patient
-Immunocompromised patient:
Patient is a kidney transplant patient on mycophenolate, tacrolimus, and prednisone 5 mg
Patient remains compliant with his antirejection medications
FULL CODE STATUS
DVT prophylaxis: Heparin
Anticipated Discharge: 24 - 48 hours
Subjective/Interval History
-
Met with patient at the bedside. Overall, he is doing much better than he did on arrival. He states that he is able to breathe easily and is comfortable when laying in bed but when he tries to get up to go to the bathroom or do any minor exertion
he quickly becomes out of breath. Patient coughs up clear sputum with specks of blood/clot. Patient inquired about why he was getting a cholesterol-lowering diet when he is used to a normal diet. I changed his diet back to normal and the patient
was appreciative.
Objective Data
-
Labs:
Labs
05/08/24 07:39
05/08/24 07:10
Vital Signs:
Vital Signs
Temp Pulse Resp BP Pulse Ox
97.8 F 74 18 131/84 96
05/07/24 23:11 05/07/24 23:11 05/07/24 23:11 05/07/24 23:11 05/07/24 23:11
I&O
05/07/24 05/08/24 05/09/24
06:59 06:59 06:59
Intake Total 1310 / 1310
Balance 1310 / 1310
Review of Systems
-
History Source: Patient
Constitutional: Reports No Symptoms
EENT: Reports No Symptoms Reported
Respiratory: Reports Cough (Patient coughs up clear sputum with specks of blood/clot) and Other (Shortness of breath on minor exertion)
Cardiac: Reports No Symptoms
Abdomen/GI: Reports No Symptoms
Breast: Reports No Symptoms
Genitourinary: Reports No Symptoms
Musculoskeletal: Reports No Symptoms
Skin: Reports No Symptoms
Neuro: Reports No Symptoms
Endocrine: Reports No Symptoms
Hematologic / Lymphatic: Reports No Symptoms
Physical Exam
-
General: Well Developed, Well Nourished, No Apparent Distress and Comfortable
HEENT: Normocephalic, Atraumatic and Moist Mucous Membranes
Respiratory: Clear to Auscultation
Cardiac: Regular Rhythm and S1/S2; Negative Murmur, Rub or JVD
Breast: Deferred by me
GI: Soft, Nontender, Nondistended and Normal Bowel Sounds
Rectal: Deferred by Provider
Genito-urinary: Deferred by me
Musculoskeletal: No Clubbing, No Cyanosis and No Edema
Skin: Warm and Dry
Neuro: Awake, Alert, Oriented and AO x 3
Psych: Calm
[2024-05-08 07:45] VITALS: BP 127/85
[2024-05-08 08:07] LABS: Hemoglobin 11.8 g/dL (13.0-18.0); Mean Corp Hgb Conc. 33.7 g/dL (33.0-37.0); Mean Corpuscular Hgb 27.6 pg (27.0-31.0); Mean Platelet Volume 9.9 fL (7.4-10.4); Platelet Count 331 10^3/uL (130-400); Red Blood Cell Count 4.27 10^6/uL (4.70-6.10); Red Cell Dist. Width 13.5 % (11.5-14.5); White Blood Cell Count 5.1 10^3/uL (4.8-10.8)
[2024-05-08] MEDS: DELTASONE 5 MG PO (08:38)
[2024-05-08] MEDS: TRANDATE 100 MG PO (08:38)
[2024-05-08 08:42] LABS: ALT (SGPT) 138 U/L (0-50); AST (SGOT) 63 U/L (17-59); Albumin 3.2 g/dl (3.5-5.0); Alkaline Phosphatase 192 U/L (38-126); Blood Urea Nitrogen 27 mg/dl (9-20); Calcium 8.9 mg/dl (8.4-10.2); Carbon Dioxide 21 mmol/L (22-30); Chloride 105 mmol/L (98-107); Direct Bilirubin 0.4 mg/dl (0.0-0.4); Estimated Creatinine Clearance 52 ml/min; Glucose 89 mg/dl (70-99); Potassium 4.9 mmol/L (3.5-5.1); Sodium 135 mmol/L (135-145); Total Bilirubin 1.1 mg/dl (0.2-1.3); Total Protein 5.5 g/dl (6.3-8.2); eGFR 45.58
--- NOTE | 2024-05-08 10:29 | PHA.VAN.FU ---
Vancomycin Assessment / Plan
- Assessment
Renal Function: SCR Increasing
WBC's are: WNL
In the past 24 hrs, patient has been: Afebrile
Concomitant Antimicrobials: piperacilin-tazobactam
- Dosing Plan
Adjust Regimen to: vancomycin 1250 mg q24H
New Regimen Predicts: AUC (486), Peak (32.8), Trough (11.2)
- Monitoring Plan
No level(s) ordered at this time: consider levels in next few days
MRSA Screen: Ordered per protocol
- Follow Up
Pharmacy will continue to follow.
Vancomycin Follow UP
- -
Patient Age: 59
Patient Sex: Male
Vancomycin Day #: 2
Indication: Pulmonary/Respiratory
Requesting Provider: SHELBI
Height / Weight:
Height 6 ft 3 in
Actual Weight 79.968 kg
IBW in k.5 kg
Pertinent Past Medical History: KIDNEY TRANSPLANT; RECENT HOSPITALIZATION FOR HAP
- Vital Signs / Lab Results
Temp Pulse Resp BP Pulse Ox
97.7 F 69 16 127/55 95
05/08/24 07:45 05/08/24 08:38 05/08/24 07:45 05/08/24 08:38 05/08/24 09:55
Lab Results - Hematology
05/07/24 05/08/24
13:24 07:39
WBC 7.0 5.1
Lab Results - Chemistry
05/07/24 05/08/24
13:24 07:10
BUN 28 H 27 H
Creatinine 1.6 H 1.7 H
Estimated Creat Clear 52
Albumin 3.3 L 3.2 L
--- NOTE | 2024-05-08 10:48 | W.PN.UPDATE ---
Addendum entered and electronically signed by Reginald Valverde MD 05/08/24 15:18:
Case discussed with Dr. Card and the pt is medically cleared for d/c.
Total time spent on d/c = 33 min. This included today's physical exam, progress note, review of laboratory and diagnostic data, preparation of discharge documents and prescriptions, and discussions about the pt's hospital course and discharge plan
with the patient and other medical collections representative involved in the patient's care.
Original Note:
Update Note
Progress Note Update
I saw and evaluated the patient. I reviewed the resident�s note and agree with findings and plan as documented in the resident�s note.
No new complaints.
Gen: NAD, AAOx3.
Eyes: EOMI, PERRLA, no scleral icterus.
Neck: supple.
CV: RRR, +S1/S2, no m/r/g.
Resp: faint rales R base
Abd: +BS, soft, NT, ND
Skin: No rashes.
Neuro: CN 2-12 intact, non-focal.
Psych: Normal mood and affect.
CXR: Progressive patchy bilateral pneumonia. Trace pleural effusion.
CT chest 04/30/23: ground glass opacities and consolidative changes lower lobes
Hemoptysis, SOB:
-recent Dx of PNA (COVID with superimposed bacterial PNA), was on IV Cefepime followed by Levaquin, was to finish 05/08/24
-noted CKD3a but procal NEG. Suspect chest x-ray findings lag behind bacterial eradication of patient's pneumonia.
-was on empiric Vanco/Zosyn, ID saw in c/s, no indication for further abx, stop abx
-immunocompromised host on immunosuppression for renal transplant
-note, likely DILI due to Levaquin, transaminases improving
-cont to quantify hemoptysis
-c/s pulm for hemoptysis. Currently hemoptysis is minimal. Hb stable. OK for d/c if OK with pulm.
Other problems:
h/o renal transplant: Continue Prograf/CellCept/prednisone
Essential HTN: cont labetalol/Cardura
FULL/SCDs
--- NOTE | 2024-05-08 10:51 | CM ---
Pt seen bedside. Initial assessment completed. Admitted for SOB and cough.
Pt reports that he lives w/ spouse in a 2STH- 1 step to enter the home. Pt is independent w/ ambulating, does not require any devices. No DME identified. Pt is independent w/ ADLs.
Pt denies SNF/VN/PT hx. Pt denies any current OP or home services at this time
Address, point of contact and insurance verified
PCP: Dr. Sanjay Lindsay
Pharmacy: [facility]
Physical therapy evaluation ordered
Plan: Home; no needs likely. Will watch for any needs pending PT eval
--- NOTE | 2024-05-08 11:19 | CON.PUL ---
Consultation
Consultation Request
Date/Time Consultation Requested: 05/08/2024-11:15 AM
Date/Time Consultation Performed: 05/08/2024-11:30 AM
Requesting Provider: Hospitalist
Performing Provider: Dr. Card
Reason for Consultation: Shortness of breath
Medical History
-
Chief Complaint: Shortness of breath
History of Present Illness:
59-year-old non-smoking male with a history of renal transplantation x 2 most recent 3 years ago at [facility], hypertension, recent COVID infection presented with increasing shortness of breath, chest congestion, cough, mopped assist and
pulmonary was consulted for shortness of breath and hemoptysis 05/08/2024.. He states that he has never coughed up blood before. He continues to have some mild hemoptysis, and not bright red blood. He denies any short of breath at rest but has
some mild dyspnea on exertion. He denies any chest pain, chest tightness, pleurisy, abdominal pain, nausea,
Or weakness.
Past Medical History
Past Medical History: None (Hypertension. Renal transplant x 2-most recent 3 years ago/[facility]. Chronic immunosuppression. AAA. BPH. Colon polyp. Hemorrhoids. Diverticulosis. Hernia repair. Kidney transplant. Right upper extremity
fistula.)
Social History
Tobacco: Former Smoker (, quit over 30 years ago)
Alcohol: None
Drug: None
Personal:
Living: With Family
Occupational Exposures: No known asbestos exposure
Environmental Exposures: No known tuberculosis exposure
Family History
Family History: Reviewed & Not Pertinent
Allergies / Home Medications
Allergies
Allergy/AdvReac Type Severity Reaction Status Date / Time
No Known Allergies Allergy Verified 05/07/24 13:21
Home Medications
�Medication �Instructions �Recorded �Confirmed �Last Taken �Type
labetalol 200 mg tablet 100 mg PO BID Blood pressure 03/14/19 05/07/24 05/07/24 History
doxazosin 2 mg tablet (Cardura) 2 mg PO QPM Urinary Issue 12/21/21 05/07/24 05/06/24 History
prednisone 5 mg tablet 5 mg PO DAILY Transplant 12/21/21 05/07/24 05/07/24 History
mycophenolate sodium 180 mg 540 mg PO BID@0600,1800 Transplant 05/31/23 05/07/24 05/07/24 History
tablet,delayed release
tacrolimus 1 mg capsule, 1 mg PO Q12H@0600,1800 Transplant 06/07/23 05/07/24 05/07/24 History
immediate-release
acetaminophen 325 mg tablet 650 mg PO Q6HPRN PRN headache 04/27/24 05/07/24 05/06/24 History
(Tylenol)
tacrolimus 0.5 mg capsule, 0.5 mg PO DAILY@0600 Transplant 04/27/24 05/07/24 05/07/24 History
immediate-release (Prograf)
levofloxacin 750 mg tablet 750 mg PO DAILY #5 tabs 05/03/24 05/07/24 05/07/24 Rx
benzonatate 100 mg capsule 100 mg PO BID 05/07/24 05/07/24 05/07/24 History
melatonin 10 mg capsule 10 mg PO HS PRN sleep 05/07/24 05/07/24 05/06/24 History
Review of Systems
-
Unable to Obtain full review of systems at this time due to: Other (Per HPI)
Vitals / Labs / Diagnostic Testing
Vital Signs
Temp Pulse Resp BP Pulse Ox
97.7 F 69 16 127/55 95
05/08/24 07:45 05/08/24 08:38 05/08/24 07:45 05/08/24 08:38 05/08/24 09:55
Lab Data
05/08/24 07:39
05/08/24 07:10
Diagnostic Testing:
Physical Exam
-
Exam:
Well-nourished and well-developed in no apparent distress
HEENT-atraumatic, normocephalic
Neck-supple, no JVD, no bruit
Heart-regular rate and rhythm-no murmurs, rubs or gallops
Chest with diminished breath sounds, expiratory rhonchi, rare crackles
Back without tenderness
Abdomen-soft, nontender, nondistended, no hepatosplenomegaly
Extremities-no cyanosis, clubbing, edema and good peripheral pulses
Integument-intact, no rashes, lesions or ecchymosis
Neurology-alert and oriented, nonfocal motor and sensory exam
Assessment
-
59-year-old non-smoking male with a history of renal transplantation x 2 most recent 3 years ago at [facility], hypertension, recent COVID infection presented with increasing shortness of breath, chest congestion, cough, mopped assist and
pulmonary was consulted for shortness of breath and hemoptysis 05/08/2024.
Pneumonia
Hemoptysis
Transaminitis
Diarrhea
Abocda-rrgsipaglk-mnnyblhoms 11.8
Renal insufficiency
Conditions present prior to admission:
Hypertension.
Renal transplant x 2-most recent 3 years ago/[facility].
Chronic immunosuppression.
AAA.
BPH.
Colon polyp.
Hemorrhoids.
Diverticulosis.
Hernia repair.
Kidney transplant.
Right upper extremity fistula.
Plan
Respiratory decompensation likely related to pneumonia and hemoptysis also likely related to pneumonia
Supplemental oxygen as needed
Quantify hemoptysis
Bronchoscopy if hemoptysis not improving or otherwise clinically indicated
Chronic prednisone for renal transplantation
Aspiration precautions
Nebulizers if needed-currently not bronchospastic
Mucolytic's
Check cultures
Sputum culture-05/01/24-, rare WBCs, moderate squamous cells, mixed bacteria, cultures not performed.
Recheck sputum culture if able to produce adequate sample
Zosyn and vancomycin empirically-was on cefepime followed by levofloxacin.
Infectious disease to see patient-pending
Monitor liver functions
DVT prophylaxis-on heparin
Nutrition
Early mobilization
Reviewed with nursing and primary team
Diagnostic data:
Chest x-ray 04/27/2024-patchy opacifications suggesting bilateral pneumonia
Chest x-ray 05/07/2024-progressive patchy bilateral pneumonia
CT chest abdomen and pelvis 04/30/2024-diffuse groundglass opacifications in the lungs more consolidative opacifications bilateral lower lobes consistent with multifocal pneumonia, chronic diverticulosis
Lower extremity ultrasound 05/07/2024-no evidence for DVT bilaterally
Echocardiogram 05/02/2024-EF 55-60%,
Data Reviewed
-
EKG: Report reviewed by me
Radiology: Image personally visualized and interpreted and Report reviewed by me
CT Scan: Image personally visualized and interpreted and Report reviewed by me
Ultrasound: Report reviewed by me
Medical Tests (Nuc Med, Echo etc): Report reviewed by me
Labs: Labs reviewed by me
Old Records: Reviewed
Total Time Spent with Patient (in minutes): 55
[2024-05-08 12:18] VITALS: BP 129/85; O2SAT 95
--- NOTE | 2024-05-08 12:20 | CON.ID ---
Consultation
-
Date/Time Consultation Requested: May 07, [id number]
Date/Time Consultation Performed: May 08, 2024 1220
Requesting Provider: DOMINIC Figueroa
Performing Provider: Dr. Roma Diaz
Reason for Consultation: Hemoptysis
Chief Complaint / Past History
Chief Complaint
Coughing up blood
History of Present Illness
59-year-old male with history of renal transplant x 2 on prednisone, tacrolimus, mycophenolate, CKD, recent COVID treated with Molnupiravir then hospitalized 04/27 to 05/03 with viral pneumonia (procal x 2 negative); during hospital stay, had
recurrence of fever started cefepime for suspected hospital-acquired pneumonia; fever resolved and he was discharged on levofloxacin through 05/08. Towards the end of hospital stay, he had mild blood in the sputum. However while at home, he coughed
up more blood. He also had small amount of blood every time he blew his nose. His was worried and called his PCP who recommended he come back to the hospital yesterday. No fever at home. Dyspnea on exertion is stable. No headaches. He was
having diarrhea for several weeks which is getting better. C. difficile and norovirus negative.
Past History
Additional Past Medical History:
HTN
s/p renal transplant x 2 (2021)
CKD 2
Restless leg syndrome
Hernia repair
RUE fistula
hemorrhoidectomy
Allergy History:
No Known Allergies Allergy (Verified 05/07/24 13:21)
Medications Reviewed: Yes
Current Antibiotics:
Vancomycin
Zosyn
Social History
Tobacco: Former Smoker
Alcohol: None
Drug: None
Personal:
Living: With Family
Family History
Family History: Not Pertinent
Review of Systems
Review of Systems
General: Negative Fever, Chills or Change in Appetite
HEENT: Sinus Problems (Rhinorrhea); Negative Headache
Cardiovascular: Dyspnea; Negative Edema
Respiratory: Cough and Hemoptysis
Gasteroenterology: Negative Nausea or Vomiting
Genital / Urological: Negative Dysuria or Flank Pain
Endocrine: Weakness
Musculoskeletal: Negative Arthralgias
All systems: All other systems were reviewed and were negative
Vital Signs
Temp Pulse Resp BP Pulse Ox
97.7 F 69 16 127/55 95
05/08/24 07:45 05/08/24 08:38 05/08/24 07:45 05/08/24 08:38 05/08/24 09:55
Physical Exam
Physical Exam
Constitutional: No Acute Distress
Head: Other (No frontal or max or sinus tenderness)
Eyes: No Conjunctival Hemorrhage and Sclera Anicteric
Cardiovascular: Regular Rate and S1/S2
Pulmonary: Clear; Negative Wheezes, Rales, Rhonchi or Coarse
Gastrointestinal: Soft, Non Tender, Non Distended and Normal Bowel Sounds
Genito-Urinary: Negative CVA Tenderness (over LLQ renal transplant)
Extremities: Negative Edema
Neurological: AO x 3
Lab / Diagnostic Study Results
05/08/24 07:39
05/08/24 07:10
Abs Immat Gran (auto) 0.1 10^3/uL (0-0.05) H 05/07/24 13:24
Absolute Neuts (auto) 5.7 10^3/uL (1.4-6.5) 05/07/24 13:24
Absolute Lymphs (auto) 0.2 10^3/uL (1.2-3.4) L 05/07/24 13:24
Absolute Monos (auto) 0.9 10^3/uL (0.1-0.6) H 05/07/24 13:24
Absolute Basos (auto) 0.0 10^3/uL (0-0.2) 05/07/24 13:24
Immature Gran % 1.9 % (0-0.5) H 05/07/24 13:24
Neutrophils % 81.1 % (42.2-75.2) H 05/07/24 13:24
Lymphocytes % 3.3 % (20.5-51.1) L 05/07/24 13:24
Monocytes % 13.0 % (1.7-9.3) H 05/07/24 13:24
Eosinophils % 0.6 % (0-6) 05/07/24 13:24
Basophils % 0.1 % (0-2) 05/07/24 13:24
Procalcitonin < 0.05 ng/ml (0.0-0.25) 05/07/24 20:06
Microbiology Results
05/07/24 CXR: progressive patchy and confluent interstitial and airspace opacities.
05/07/24 Periph Vasc US: No evidence of deep venous thrombosis bilaterally.
Assessment / Plan
# Immunocompromised host: renal transplant; on mycophenolate, tacrolimus, prednisone 5 mg/d
# Hemoptysis
# Bilateral lung opacities, progressed
04/27, 04/28 Procal <0.25
05/01 Procal 0.32 -> tx'd empirically with cefepime , then levofloxacin (through today)
05/07 Procal <0.05
- DC further Vancomycin and Zosyn.
-? hemoptysis from epistaxis
-Noted new transaminases
Unlikely CMV pneumonitis (>2 years out transplant)
However, will check plasma CMV NAAT.
Care Review
Plan reviewed with: Physician (Dr. Valverde)
--- NOTE | 2024-05-08 12:29 | PTOTSP ---
Discussed patient ambulating in hallway with either grippy socks or his own sneakers throughout the day with RN and with patient to improve functional endurance; verbalized understanding.
Patient demonstrates independence with functional mobility, transfers and ambulation. Educated throughout on importance of rest breaks as needed in order to progress safely; verbalized and demonstrated understanding.
Does not demonstrate continued skilled therapy while in house and will be discharged at this time. If needs change, please re-consult.
--- NOTE | 2024-05-08 15:30 | W.DCSUMMARY ---
Discharge Summary
Discharge Data
Date of Admission: 05/07/24
Date of Discharge: 05/08/24
-
Pending Results: Yes
Additional Pending Results:
CMV by quant NAAT pending.
Hospital Course
Discharging Physician : Dr Valverde
Disposition : Home
Primary care physician : Sanjay Lindsay
Principal Discharge diagnosis :
Hemoptysis/shortness of breath secondary to pneumonia
Chronic Discharge diagnosis :
Hypertension.
Renal transplant x 2-most recent 3 years ago/[facility].
Chronic immunosuppression.
AAA.
BPH.
Colon polyp.
Hemorrhoids.
Diverticulosis.
Hernia repair.
Kidney transplant.
Right upper extremity fistula.
Hospital Course : Patient is a 59-year-old male with a past medical history of kidney transplant done at [facility] who presented to the emergency department after he was recently admitted here for COVID-pneumonia, subsequently developed
bacterial pneumonia which was treated with IV antibiotics and then subsequently discharged home with oral antibiotics who presented with worsening cough, and spitting up blood and states that he was having chest discomfort with continued shortness
of breath. The patient was not on any anticoagulant medications the patient stated that he did not have any fevers at home, chills, rigors, nausea, or vomiting. He also denied any lower extremity edema, exertional dyspnea, or orthopnea. His
kidney transplant was done 6 years ago and the other was done 3 years ago. The patient has been compliant with his antirejection medications. Labs were initiated on arrival which showed stable chronic kidney disease. White blood cells were within
normal limits at 7 and chemistry showed an elevated BUN at 27 and creatinine at 1.7. Patient also had transaminitis with an AST of 63 and an ALT of 138. Alkaline phosphatase was elevated at 192. Troponins were within normal limits but proBNP was
elevated at 2640. X-ray conducted in the emergency department on 05/07/2024 showed a progressive patchy bilateral pneumonia and trace pleural effusion. The patient was admitted to [facility] for hemoptysis/shortness of breath secondary to
pneumonia.
The patient was given IV Zosyn and vancomycin and infectious diseases was consulted. Procalcitonin within normal limits at 0.05. Pulmonology was consulted. Bilateral lower extremity duplex venous ultrasound showed no evidence of deep venous
thrombosis bilaterally. Labs showed stable chronic kidney disease stage IIIb with a creatinine at 1.6 on admission and an eGFR of 45.58. Throughout this admission the patient's antirejection medications were continued. Levaquin was held due to
suspicion of it being a causative factor behind the transaminitis. LFTs were followed and trended and they continue to trend downward throughout the admission. The patient's hypertension meds were continued. The negative Pro-Rito was an indication
for no further antibiotics so antibiotics were discontinued. Hemoptysis was minimal and hemoglobin was stable. Pulmonology evaluated the patient and believe the patient was medically stable for discharge. Infectious disease checked for plasma CMV
NAAT which is pending. The patient believes that he is ready for discharge and would like to go home.
The patient has reached maximal benefit from this hospital admission and is appropriate for discharge. The patient is medically stable and there are no barriers that would impede the patient from being safely discharged at the present time. The
patient should meet with his primary care provider 1 week following discharge. The patient should follow-up with his airborne sensor specialist and c software engineer in the outpatient setting.
Important imaging findings :
-Chest x-ray conducted on 05/07/2024:
Bilateral patchy and slightly confluent interstitial and airspace opacities are demonstrated especially in the lung bases, though also involving the mid lung zones with relative sparing of the lung apices. Progressed compared to prior examination,
consistent with progressive pneumonia. No pneumothorax. Trace pleural effusion with blunting the posterior costophrenic angle. The heart is top normal in size. No apparent vascular congestion or congestive heart failure.
-Peripheral vascular ultrasound conducted on 05/07/2024:
There is no evidence for deep venous thrombosis bilaterally. There is normal compressibility, color flow, and spectral Doppler flow of the deep venous system bilaterally from the common femoral vein through the posterior tibial vein. The proximal
greater saphenous veins are also patent bilaterally.
Procedure findings : N/A
Discharge Plan
-
Patient Disposition: Home (Routine Discharge)
Discharge Diagnosis/Procedures: Hemoptysis/shortness of breath secondary to pneumonia
Condition: Good
Diet: No restrictions
Activity: No restrictions
Driving Restrictions: As prior to admission
Bathing Restrictions: None
Referrals:
Sanjay Lindsay MD [Family Provider] - in less than 1 week
Prescriptions:
Continued
labetalol 200 MG tablet
100 mg PO BID
prednisone 5 mg Tablet
5 mg PO DAILY
doxazosin [Cardura] 2 mg Tablet
2 mg PO QPM
mycophenolate sodium 180 mg tablet,delayed release (DR/EC)
540 mg PO BID@0600,1800
tacrolimus 1 mg Capsule
1 mg PO Q12H@0600,1800
acetaminophen [Tylenol] 325 mg Tablet
650 mg PO Q6HPRN PRN (Reason: headache)
tacrolimus [Prograf] 0.5 mg Capsule
0.5 mg PO DAILY@0600
levofloxacin 750 mg tablet
750 mg PO DAILY Qty: 5 0RF
Rx Instructions:
Take levofloxacin 750mg once daily through 05/08
benzonatate 100 mg capsule
100 mg PO BID
melatonin 10 mg Capsule
10 mg PO HS PRN (Reason: sleep)
Discharge Orders:
Discharge Patient (As Directed); Ordered 05/08/24
Ordered By: Madyson Hanson
Discharge Date and Time
Print Language: [place]
--- NOTE | 2024-05-08 15:39 | CM ---
Pt stable for d/c.
Met w/ pt bedside, wasn't aware of d/c but is agreeable
IMM reviewed, pt denied needing a copy. Copy placed on chart
Pt will drive self home
No CM needs identified at this time
Plan: Home; no needs
[2024-05-08 16:29] VITALS: BP 120/70
== END 2024-05-08 16:55 | disposition home or self-care (01) | DRG 194 ==
LOC: 4 EAST ACU 20:38
PROVIDERS: Emergency Medicine; Registered Nurse; ADMITTING PHYSICIAN Internal Medicine; ATTENDING PHYSICIAN Internal Medicine; CONSULT PHYSICIAN Internal Medicine Critical Care Medicine; EMERGENCY PHYSICIAN Student in an Organized Health Care Education/Training Program; FAMILY PHYSICIAN Family Medicine; OTHER PHYSICIAN Internal Medicine Infectious Disease
DX: J18.9 Pneumonia, unspecified organism (principal); D84.821 Immunodeficiency due to drugs; R04.2 Hemoptysis; Z94.0 Kidney transplant status; J90 Pleural effusion, not elsewhere classified; N18.32 Chronic kidney disease, stage 3b; I12.9 Hypertensive chronic kidney disease with stage 1 through stage 4 chronic kidney disease, or unspecified chronic kidney disease; K64.9 Unspecified hemorrhoids; D64.9 Anemia, unspecified; Y95 Nosocomial condition; I71.40 Abdominal aortic aneurysm, without rupture, unspecified; N40.0 Benign prostatic hyperplasia without lower urinary tract symptoms; R74.01 Elevation of levels of liver transaminase levels; R74.8 Abnormal levels of other serum enzymes; R19.7 Diarrhea, unspecified; Z86.16 Personal history of COVID-19; Z87.01 Personal history of pneumonia (recurrent); Z79.52 Long term (current) use of systemic steroids; Z79.624 Long term (current) use of inhibitors of nucleotide synthesis; Z79.621 Long term (current) use of calcineurin inhibitor; Z86.0100 Personal history of colon polyps, unspecified; G25.81 Restless legs syndrome; Z87.891 Personal history of nicotine dependence
CPT/HCPCS: 71046; 80053; 82248; 83880; 84145; 84484; 85025; 85027; 87070; 87205; 87497; 93005; 93970; 96365; 96375; 97116; 97163; 99285

== ENCOUNTER → 2024-06-18 06:52 | Outpatient (REF) | payer OTHER, MEDICARE, SELFPAY | LOC: RAD 06:52 | PROVIDERS: ATTENDING PHYSICIAN Surgery Vascular Surgery; FAMILY PHYSICIAN Family Medicine | DX: I77.0 Arteriovenous fistula, acquired (principal); N18.4 Chronic kidney disease, stage 4 (severe) | CPT/HCPCS: 93990 ==

== ENCOUNTER 2024-08-01 06:12 | Day surgery (SDC) | payer OTHER, SELFPAY ==
[2024-08-01] VITALS (15 sets, daily range): BP systolic 124–150; BP diastolic 79–102; BMI 22.8
[2024-08-01 06:54] LABS: Hematocrit 39.4 % (39.0-52.0); Hemoglobin 13.1 g/dL (13.0-18.0); Mean Corp Hgb Conc. 33.2 g/dL (33.0-37.0); Mean Corpuscular Volume 87.4 fL (80.0-94.0); Mean Platelet Volume 11.1 fL (7.4-10.4); Platelet Count 177 10^3/uL (130-400); Red Blood Cell Count 4.51 10^6/uL (4.70-6.10); White Blood Cell Count 3.9 10^3/uL (4.8-10.8)
--- NOTE | 2024-08-01 07:00 | W.SUR.PREOP ---
Pre-Operative Surgical Note
-
I have examined this patient prior to the performance of the scheduled procedure.
The patient's condition is unchanged from the time of the current History and
Physical and the patient is able to undergo the scheduled procedure.
[2024-08-01] MEDS: PERIDEX 0.12% ORAL RINSE 15 ML PO (07:01)
[2024-08-01 07:02] LABS: INR 0.96; PT 13.3 Sec (11.4-14.6)
[2024-08-01] MEDS: BACTROBAN NASAL 1 GRAM NASAL (07:02)
[2024-08-01] MEDS: NSS 500 IV (07:02)
[2024-08-01 07:03] LABS: APTT 29.6 Sec (23.4-35.0)
[2024-08-01 07:11] LABS: Blood Urea Nitrogen 24 mg/dl (9-20); Calcium 9.5 mg/dl (8.4-10.2); Carbon Dioxide 27 mmol/L (22-30); Chloride 111 mmol/L (98-107); Estimated Creatinine Clearance 61 ml/min; Glucose 101 mg/dl (70-99); Potassium 4.3 mmol/L (3.5-5.1); Sodium 139 mmol/L (135-145); eGFR 52.97
--- NOTE | 2024-08-01 08:51 | W.SUR.POST ---
Surgical Immediate Post Op
Note
Pre Op Diagnosis: Aneurysmal AV fistula
Post Op Diagnosis: Same
Procedure Performed: Excision of right upper extremity aneurysmal AV fistula
Primary Surgeon: Carlton Santiago M.D.
Assist: Areli ALFARO
Anesthesia: LMA
Estimated Blood Loss: 20 cc
Fluids: See anesthesia flowsheet.
Drains/Shunts: None
Specimens/Cultures: Aneurysmal fistula
Doppler/Duplex/Angio (Y/N): No
Complications: None
Operative Findings: Successful excision of aneurysmal fistula, palpable radial pulse
[2024-08-01] MEDS: SUBLIMAZE 25 MCG IV ×4 (09:02→09:26)
--- NOTE | 2024-08-01 09:03 | OR.RPT ---
Operative Report
Operative Report
PROCEDURE DATE: 08/01/2024
Preoperative diagnosis:
1. Chronic kidney disease status post right upper extremity arteriovenous fistula creation, and subsequent renal transplantation.
2. 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
Postoperative diagnosis: Same
Procedure:
1. Excision of aneurysmal arteriovenous fistula outflow vein right upper extremity.
2. Dissection through scarred tissue.
Surgeon: Jack
Typing Pool Supervisor: ADONIS Moore, required for all aspects of procedure including assistance with traction/countertraction, following a suture line, assistance with closure.
Complications: None
Anesthesia: General
Indications for procedure:
Aneurysmal AV fistula with compressive symptoms of pain and numbness in the hand with flexion of the elbow. Risk/benefits/alternatives of excision of aneurysmal fistula fully discussed. The fistula was not being used as he had a successful
transplanted kidney. He does understand the need for potential future access if that is to fail. Patient understood all wished to proceed.
Description of procedure:
Patient was identified brought to the operating room placed on the table in supine position. After the adequate administration of anesthesia he was prepped and draped in the standard surgical fashion. A standard preoperative timeout was undertaken
and everybody was in agreement the plan. Initially made a transverse incision through the prior scar in the proximal volar aspect of the right forearm. This was carried through the skin subcutaneous tissue with the electrocautery. Identified the
aneurysmal outflow vein now. However the artery seem to be more deep and scarred in. Therefore I then extended my incision in a curvilinear S shaped fashion extending longitudinally in the proximal direction more medially, and longitudinally in
the distal direction more laterally. (Standard lazy S incision). Entirety of incision was carried through skin subcutaneous tissue with electrocautery. With great care I dissected the brachial artery away from surrounding structures and the
proximal extent of the incision and passed a vessel loop around it so I now have proximal vascular control. Vessel loop was double looped but not tightened. I now continued to dissect along the brachial artery dissecting through scar tissue. I
was able to identify the anastomosis. Just beyond the anastomosis the vein was of reasonable size and then became aneurysmal just beyond there. I now continued to dissect through scar tissue and was able to identify the outflow artery and then
carefully circumferentially dissected and passed the vessel loop around it. Again this vessel loop was double looped but not yet tightened. I now mobilized the entirety of the aneurysmal outflow vein segment in this antecubital segment dissecting
it away from the surrounding tissue carefully. I dissected it to the level where the vein tapered to a more normal segment. I then carefully circumferentially dissected there and passed a vessel loop around it. Now had complete control. I gave
the patient 4000 intravenous heparin. (In the case that I would have to clamp the artery). However I did not have to clamp the artery but rather placed a Derra clamp on the immediate outflow vein that was more normal in caliber so as to maintain a
small rim of vein on the artery to prevent any stenosis (acting as a vein patch). I now ligated the outflow vein in the slightly more central segment where I have passed the vessel loop around where it tapered to a more normal segment. I used
heavy silk ties there to ligate it. I also used a silk suture ligature. I now transected just proximal to my ligature. I also then used an 11 blade to transect the aneurysmal vein off of my Derra clamp. I now sent to the aneurysmal fistula for
specimen. I now ran a 5-0 Prolene 2 layer standard vascular closure underneath my clamp initially then released the clamp and completed the second layer. Tied down my suture line. Hemostasis was fully noted. There is excellent pulsatile flow in
the artery, confirmed with an excellent pulse in the radial artery at the wrist. At this point was very satisfied. I irrigated. Gave protamine to reverse the heparin. Achieved and confirmed full hemostasis. We then closed in layers using 2
layers of 3-0 Vicryl suture followed by 4-0 Monocryl running subcuticular stitch. Dermabond was then applied. The patient tolerated procedure well. All sponge, needle, instrument counts were correct in the case. He was transferred to the
recovery room in good/stable condition.
[2024-08-01] MEDS: TYLENOL 650 MG PO (10:18)
[2024-08-01] MEDS: ROXICODONE 5 MG PO (10:19)
== END 2024-08-01 11:55 | disposition home or self-care (01) ==
LOC: CATH 06:12
PROVIDERS: ATTENDING PHYSICIAN Surgery Vascular Surgery; OTHER PHYSICIAN Specialist; PRIMARYCARE PHYSICIAN Family Medicine
DX: I12.0 Hypertensive chronic kidney disease with stage 5 chronic kidney disease or end stage renal disease (principal); N18.6 End stage renal disease; T82.898D Other specified complication of vascular prosthetic devices, implants and grafts, subsequent encounter; Y83.2 Surgical operation with anastomosis, bypass or graft as the cause of abnormal reaction of the patient, or of later complication, without mention of misadventure at the time of the procedure
CPT/HCPCS: 37607; 88304; 80048; 85027; 85610; 85730; 86850; 86900; 86901

== ENCOUNTER → 2025-01-24 09:06 | Outpatient (REF) | payer OTHER, SELFPAY | LOC: PAVMRI 09:06 | PROVIDERS: ATTENDING PHYSICIAN Otolaryngology; FAMILY PHYSICIAN Family Medicine | DX: H90.A22 Sensorineural hearing loss, unilateral, left ear, with restricted hearing on the contralateral side (principal) | CPT/HCPCS: 70553 ==